=== PATIENT | female | born 1975 | race Caucasian/White ===

== ENCOUNTER → 2019-07-05 13:22 | Outpatient (CLI) | payer OTHER, SELFPAY ==
--- NOTE | 2019-07-05 13:30 | RAD_ITS ---
STUDY: X-RAY - PELVIS AND LEFT HIP REASON FOR EXAM: Female, 43 years old. Chronic left hip pain. TECHNIQUE: 3 views of the pelvis and hip. COMPARISON: None. FINDINGS: There is a non-specific bowel gas pattern. There are multiple calcified phleboliths. Normal bilateral iliac wings, sacroiliac joints and visualized sacrum. Normal bilateral superior and inferior pubic rami. Normal pubic symphysis. Normal bilateral ischial tuberosities. Normal visualized femoral head. Normal acetabulum. Normal hip joint. Evidence of prior laminectomy in the lower lumbar spine. Disc space narrowing with spondylosis at the L4-L5 level. RAD/HIP, UNI W/ Pelvis 2-3 Views IMPRESSION: No acute abnormality is seen. Electronically Signed: Dimitri Rick, at 13:50 EDT , Service support ,
== END ==
PROVIDERS: Family Provider Family Medicine; PCP Family Medicine; Referring Provider Family Medicine; Visit Provider Family Medicine
DX: M25.552 Pain in left hip (principal)
CPT/HCPCS: 73502

== ENCOUNTER → 2019-07-15 14:28 | Outpatient (CLI) | payer OTHER, SELFPAY ==
[2019-07-15 14:31] LABS: Red Blood Cells-Urine 0 SEEN /hpf (0-5)
[2019-07-15 14:44] LABS: Color, Urine Yellow (Yellow); Glucose, Dipstick Normal (Normal); Ketone-Dipstick 5 mg/dl (Negative); Leukocyte Esterase-Dipstick 25 /ul (Negative); Nitrite-Dipstick Negative (Negative); Occult Blood-Urine Negative /ul (Negative); Protein-Dipstick 15 mg/dl (Negative); Urine Bilirubin Dipstick Negative (Negative); Urine Clarity Sl. Cloudy (Clear); Urine Urobilinogen Normal (Normal)
[2019-07-15 14:52] LABS: Bacteria 2+ /hpf (None Seen); Mucous, Urine 1+ /hpf (<or=2+); Squamous Epithelial Cells - UA 0-5 SEEN /hpf (5-10); White Blood Cells 0-5 SEEN /hpf (0-5); Yeast-Urine RARE /hpf (None Seen)
== END ==
PROVIDERS: Family Provider Family Medicine; PCP Family Medicine; Referring Provider Physician Assistant; Visit Provider Physician Assistant
DX: R30.0 Dysuria (principal)
CPT/HCPCS: 81001; 87077; 87086; 87088

== ENCOUNTER 2019-08-03 08:07 | Day surgery (SDC) | payer OTHER, SELFPAY ==
--- NOTE | 2019-07-16 05:18 | HP_ITS ---
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 Is patient in pain?: No Allergies Iodinated Contrast Media Allergy (Mild, Verified 07/16/19 14:30) Unknown lidocaine Allergy (Mild, Verified 07/16/19 14:30) HIVES Medications bupropion HCl SR 100 mg tablet,12 hr sustained-release 100 mg PO DAILY 11/30/18 [History Confirmed 07/16/19] fluconazole 200 mg tablet 200 mg PO DAILY #2 tab 11/30/18 [Rx Confirmed 07/16/19] loratadine 10 mg tablet 10 mg PO DAILY 11/30/18 [History Confirmed 07/16/19] norethindrone (contraceptive) 0.35 mg tablet 0.35 mg PO DAILY 11/30/18 [History Confirmed 07/16/19] nitrofurantoin monohydrate/macrocrystals 100 mg capsule 1 cap PO Q12H 7 Days #14 cap 07/15/19 [Rx Confirmed 07/16/19] cyclobenzaprine 10 mg tablet 10 mg PO HS 07/16/19 [History Confirmed 07/16/19] pantoprazole 40 mg tablet,delayed release 40 mg PO DAILY 07/16/19 [History Confirmed 07/16/19] valacyclovir 500 mg tablet 500 mg PO DAILY 07/16/19 [History Confirmed 07/16/19] PFSH Medical History HISTORY OF CARPAL TUNNEL (Acute) NECK/BACK PAIN (Acute) Severe headache (Acute) Surgical History History of (Acute) History of lumbar surgery (Acute) Social History (Updated 07/16/19 @ 17:18 by Aditya Garcia MD) Smoking Status: Never smoker alcohol intake: current alcohol intake frequency: a few times a month HPI HPI HPI: DEBBIE MALHOTRA, is a 43 F who presents to the office today for HPI HPI Surgical H&P: Yes HPI: DEBBIE MALHOTRA, is a 43 F who presents to the office today for surgical consultation regarding intractable gastroesophageal reflux disease. When she lies down at night she feels that she has heartburn and a very bad taste in her mouth. She has for years taking wzbr-uec-kqjfzmo omeprazole as needed. Recently she has been prescribed 40 mg daily of pantoprazole. It is of note that her maternal aunt and uncle had esophageal cancer and stomach cancer respectively. Her mother has been diagnosed with Doty's. Her brother has had a stomach ulcer. The patient is employed at the [employer] department of [email or web address]. ROS General General: Yes fatigue; no weight change, appetite, colon cancer, breast cancer or weakness HEENT HEENT: Yes eye injury and eye surgery; no difficulty swallowing, swollen glands or hoarseness Endo Endocrine: No thyroid disease, diabetes mellitus, thyroid cancer, Hair loss, heat intolerance or cold intolerance Skin Skin: No rash or changing moles Breast Breast: No left breast lump, right breast lump, nipple discharge, breast pain, abnormal mammogram, abnormal US or breast enlargement Musc Musculoskeletal: Yes back problems and arthritis; no rheumatoid arthritis, gout or joint pain Cardio Cardiovascular: No murmur, pacemaker, heart disease, atrial fibrillation, high blood pressure, heart attack, heart stent, palpitations, shortness of breat with exertion or chest pain Psych Psychiatric: Yes depression and anxiety; no hearing voices Resp Respiratory: No shortness of breath, No sleep apnea, No cough, No COPD, No asthma, No emphysema, No wheezing Gastro Gastrointestinal: No abdominal pain, No nausea or vomiting, No diarrhea, No constipation, No blood in stool, Yes acid reflux, Yes hemorrhoids, No ulcers, No gallbladder problem, No black,tarry stools Benjamin Hematologic: No blood thinners, No blood disorders, No bleeding, No anemia, No blood clots Neuro Neurologic: No system reviewed and no additional complaints, except as docu, No as per HPI, No abnormal walking, No abnormal hearing, No abnormal movements, No abnormal speech, No behavioral changes, No burning sensations, No confusion, No seizure-like activity, No unsteadiness, No dizziness, No localized weakness, No frequent falls, No headache(s), No lack of coordination, No loss of vision, No memory loss, Yes numbness, No other visual disturbances, No radiating pain, No restless legs, No sensory deficit, No fainting, Yes tingling, No tremor(s), No weakness, No other Exam Const General: cooperative, healthy appearing, comfortable, no acute distress Nutritional Appearance: obese Orientation: alert, awake, oriented x3 HENMT Head: normal to inspection Chest Breast Palpation: No nipple discharge Resp Effort & Inspection: normal respiratory effort Auscultation: clear to auscultation bilaterally Cardio Rate: regular rate Rhythm: regular rhythm Heart Sounds: no murmurs GI Palpation: soft, no hepatosplenomegaly Auscultation: normal bowel sounds Neuro Cognition: normal cognition Extrem General: no clubbing Psych Affect: normal affect Assessment & Plan Problems 1. Gastroesophageal reflux disease, esophagitis presence not specified K21.9 Plan Very pleasant 43-year-old female was had intractable gastroesophageal reflux disease for multiple years being treated with as needed exoq-ykj-shpcuek omeprazole. Recently her symptoms has escalated. She has never had an upper endoscopy for evaluation. I recommend a esophagogastroduodenoscopy with very careful inspection for antrum possible H. pylori possible evidence of a hiatal hernia or reflux or even eosinophilic esophagitis. She is aware of the technique, benefits, risks, alternatives. She is aware the potential need to pursue biopsy or polypectomy. She has had an opportunity to ask and have questions answered. We will schedule and proceed at her discretion. I very much appreciate the kind opportunity of assisting with her surgical care. Aditya Garcia M.D., F.A.C.S. Orders Orders: EGD Today K21.9 Coding Level of Care Code Off vis,new,level 3 Diagnoses Gastroesophageal reflux disease, esophagitis presence not specified K21.9 ??Esophagitis presence: esophagitis presence not specified 07/16/19 1718 <Electronically signed by Aditya palomino MD> Date _ Aditya Garcia MD I have re-examined the patient. There are no clinical changes since date of exam.
[2019-07-16 14:29] VITALS: BMI 33.7
[2019-07-23 12:57] VITALS: BMI 33.7
[2019-08-03] VITALS (11 sets, daily range): BP systolic 85–116; BP diastolic 51–85; PULSE 83–91; RESP 16–18; TEMP 36.4–36.9; O2SAT 92–100; BMI 33.7
[2019-08-03] MEDS: Lactated Ringers 1,000 ML 100 ML IV (08:47)
--- NOTE | 2019-08-03 09:00 | EGD_PTH ---
PATIENT: DEBBIE MALHOTRA LOC: EN U#:[id number] AGE/SX: 43/F ROOM: RE08/03/[address]: Dr. Aditya Garcia MD : 1975 BED: DIS: 08/03/2019 SPEC #: [id number] RECD: 08/03/19 10:44 STATUS: HUMBERTO CHRISTIANO #: [id number] FRANCK: 08/03/19 09:[address]: Aditya Garcia DEPT: SURGICAL PATHOLOGY RECD BY: Byron Villarreal ENTERED: 08/03/19 11:08 SP TYPE: EGD BIOPSY OTHR DR: Dr. Jatin Bradford MD Tissues: A - Duodenum, NOS B - Gastric mucous membrane C - Esophageal mucous membrane Procedures: Special Stain Group II Surgery Specimen Level IV Alcian Blue/PAS (control) HEADER OPERATION: EGD (MOD) PRE-OP DIAGNOSIS: GERD TISSUE SUBMITTED: A - Duodenum biopsy, B - Antrum biopsy for H. pylori and histo, C - Distal esophagus biopsy MICROSCOPIC DIAGNOSIS A. Duodenum, biopsy: No pathologic change. B. Gastric antrum, biopsy: Minimal chronic inflammation. See comment. C. Distal esophagus, biopsy: Gastroesophageal junctional mucosa with mild chronic inflammation. No evidence of intestinal metaplasia. See comment. AM:yesenia 08/06/19 COMMENT B. The results of immunohistochemistry for Helicobacter pylori will be reported separately ([id number]). C. Alcian blue/PAS stain with matched control supports the above diagnosis. MICROSCOPIC DESCRIPTION Slides are reviewed. GROSS DESCRIPTION A - Received in fixative is one container labeled with the patient's name and designated duodenum biopsy. The specimen consists of one irregular fragment of light dunlap soft tissue that measures 0.3 x 0.3 x 0.1 cm. The specimen is totally submitted in one cassette. B - Received in fixative is one container labeled with the patient's name and designated antrum biopsy. The specimen consists of one irregular fragment of light dunlap soft tissue that measures 0.5 x 0.3 x 0.1 cm. The specimen is totally submitted in one cassette. C - Received in fixative is one container labeled with the patient's name and designated distal esophagus biopsy. The specimen consists of multiple irregular fragments of light dunlap soft tissue that in aggregate measure 1 x 0.5 x 0.1 cm. The specimen is totally submitted in one cassette. / SJ:rg 08/03/19 TC:5 CPT: 48754 x3, 58553
--- NOTE | 2019-08-03 09:00 | IMM_PTH ---
PATIENT: DEBBIE MALHOTRA LOC: EN U#:[id number] AGE/SX: 43/F ROOM: RE08/03/[address]: Dr. Aditya Garcia MD : 1975 BED: DIS: 08/03/2019 SPEC #: [id number] RECD: 08/03/19 11:34 STATUS: HUMBERTO CHRISTIANO #: [id number] FRANCK: 08/03/19 09:[address]: Aditya Garcia DEPT: IMMUNOHISTOCHEMISTRY RECD BY: Jaycee Walker ENTERED: 08/03/19 11:35 SP TYPE: IMMUNO OTHR DR: Dr. Jatin Bradford MD Tissues: A - Stomach, NOS Procedures: H Pylori (initial) PHYSICIAN & INSTITUTION [place] [id number] SPECIMEN INFORMATION: Tissue Source: B - Antrum biopsy Clinical Info: GERD Specimen Number: [id number] CPT code: 01355 METHODOLOGY: Deparaffinized sections of prefer/formalin-fixed tissue or PAP/DQ stained slides are incubated with monoclonal/polyclonal antibodies/oligonucleotide probes. Localization is made via biotin free immunoperoxidase method. Appropriate controls are performed and reacted as expected. Results on target cell population are indicated in the following table: RESULTS: ANTIBODY / CLONE RESULT Block B H Pylori (polyclonal) negative These tests were developed and their performance characteristics determined by [facility]. They may not have been cleared or approved by the U.S. Food and Drug Administration. The FDA has determined that such clearance or approval is not necessary. INTERPRETATION: B. Antrum biopsy: Negative for Helicobacter pylori organisms. AM:yesenia 08/06/19
--- NOTE | 2019-08-03 09:48 | OP.ENDO_ITS ---
08/03/2019 Jatin Bradford Md Re : Upper GI endoscopy procedure for Ketty Lin Dear Sanchez This procedure was performed on Saturday, August 03, 2019. My impressions and recommendations are as follows: Impressions : - LA Grade A chronic esophagitis. Rule out Doty's esophagus. Biopsied. - Small hiatal hernia. - Chronic gastritis. Biopsied. - Normal examined duodenum. Biopsied. Recommendations : - Discharge patient to home. - Resume previous diet. - Continue present medications. 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 My findings are described in the full procedure note, which is enclosed. If I can be of further assistance, please feel free to contact me at Doctor phone number(s): Work: . Sincerely, Aditya Garcia MD 08/03/2019 9:47:56 AM This report has been signed electronically.
== END 2019-08-03 11:13 | disposition home or self-care (01) ==
LOC: EN 08:07 → AC 08:08
PROVIDERS: Family Provider Family Medicine; PCP Family Medicine; Referring Provider Family Medicine; Visit Provider Surgery
PROC: (CPT 43239; principal; 2019-08-03 08:55)
DX: K21.0 Gastro-esophageal reflux disease with esophagitis (principal); K29.50 Unspecified chronic gastritis without bleeding; K44.9 Diaphragmatic hernia without obstruction or gangrene; E66.9 Obesity, unspecified; F32.9 Major depressive disorder, single episode, unspecified; F41.9 Anxiety disorder, unspecified; Z79.899 Other long term (current) drug therapy; Z80.0 Family history of malignant neoplasm of digestive organs
CPT/HCPCS: 43239; 88305; 88313; 88342; 99152; 99153; J7120

== ENCOUNTER → 2019-08-08 10:25 | Outpatient (CLI) | payer OTHER, SELFPAY ==
[2019-07-23 12:57] VITALS: BMI 33.7
[2019-08-03 08:32] VITALS: BMI 33.7
--- NOTE | 2019-08-08 10:31 | MRI_ITS ---
STUDY: MRI BRAIN WITHOUT CONTRAST REASON FOR EXAM: Female, 43 years old. Headache, neck stiffness TECHNIQUE: Standardized multiplanar fat and water weighted pulse sequences were obtained. COMPARISON: None. FINDINGS: Normal size of the ventricles and extra-axial spaces for the patient's age. Normal white matter tracts of the supratentorial brain. There is no evidence for recent intracranial ischemia or other cause of cytotoxic edema on diffusion weighted imaging (DWI). Normal T2* images of the brain without demonstrated susceptibility artifact. There is no demonstrated hemosiderin stain. Normal bilateral basal ganglia. Normal thalami. There is no extra-axial fluid accumulation. Normal flow voids within the major intracranial circulation suggesting patency by spin echo criteria. Normal sella turcica, pituitary gland, infundibular stalk, optic chiasm and hypothalamus. Normal tectal plate and pineal gland. Normal midbrain, carole and medulla. Normal cerebellum. Normal basal cisterns. Normal bilateral temporal bones. Normal bilateral internal auditory canals. No demonstrated orbital abnormality, within the constraints of a routine brain study. Normal visualized paranasal sinuses. Normal calvarium and skull base. Normal visualized soft tissue structures. Normal visualized upper cervical spine. MRI/Brain without Contrast IMPRESSION: Normal unenhanced MRI of the brain. Electronically Signed: Yusuf Aden MD at 14:25 EDT Tel , Service support ,
== END ==
PROVIDERS: Family Provider Family Medicine; PCP Family Medicine; Referring Provider Family Medicine; Visit Provider Family Medicine
DX: M43.6 Torticollis (principal)
CPT/HCPCS: 70551

== ENCOUNTER 2019-11-28 10:00 | Outpatient (RCR) | payer OTHER, SELFPAY ==
[2019-08-03 08:32] VITALS: BMI 33.7
[2019-08-17 06:10] VITALS: BMI 33.7
--- NOTE | 2019-08-29 10:26 | HP.PTEVAL ---
Patient's Visit Information DEBBIE MALHOTRA is a 43 year old F referred to Physical Therapy by Jatin Bradford MD with a diagnosis of CHRONIC RECURRANCE MIGRAINES. Date of Evaluation: 08/29/19 Physical Therapist: Laron Thomas PT, Cert MDT, OCS - Visit Plan Frequency: 2x /Week Duration: 4 Weeks Plan: PT INTERVENTIONS MANUAL THERPY MOBILIZATION OA/AA,TRACTION/STM ,MODALTIES,SCOTT EX'S,POSTURAL EX'S - Subjective Findings: This 43 y/o female presents to physical therapy with recurrent migraines. Patient has had migraines 3 months ago. Symptoms located occipital . 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 No Lloyd. Alleviating ibuprofrin. Patient has had h/o right shoulder pain 2 years associated neck per patient. Dneis parathesai/tingling. Dizziness /nausea/tiinutus. Patient sleeping okay at night. Patient migraines affects job demnads ,ADL'S and housework tasks. Patient symptoms affect QOL and function. Patient had MRI brain -.PMH: lumbar disectomy/laminectomy x3. SOCAIL: single. VOCATION: [employer] at [employer] - Objective POSTURE: rounded shoulder head foward. PALAPTION: tender occiput. NEURO: intact ,denies parathesia/tinling. AROM: BUE WFL. MMT: grossly 4/5. 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: dynamotor 75# - Special Tests C/S Radiculapathy - Left Upper limb tension test: Negative C/S Radiculapathy - Right Upper limb tension test: Negative C/S Radiculapathy - Left Spurlings: Negative C/S Radiculapathy - Right Spurlings: Negative C/S Radiculapathy - Left Cervical distraction: Negative C/S Radiculapathy - Right Cervical distraction: Negative Sharp Anastacio: Negative Vertebral Artery Test: Negative Alar Ligament Test: Negative Cervical Sitting: Protrusion - Mechanical Response: No effect Cervical Sitting: Protrusion - Symptoms During Testing: No effect Cervical Sitting: Protrusion - Symptoms After Testing: No effect Cervical Sitting: Retraction - Mechanical Response: No effect Cervical Sitting: Retraction - Symptoms During Testing: Increases Cervical Sitting: Retraction - Symptoms After Testing: No worse - Goals Goal 1:: Independant with HEP Goal Time Frame: 4-6 Weeks Goal 2:: Independant with posture for job demands . Goal Time Frame: 4-6 Weeks Goal 3:: Patient to decrease LLOYD by 60% or> to improve job demands . Goal Time Frame: 4-6 Weeks Goal 4:: Patient to increase cervical ROM WNL for function of recovery Goal Time Frame: 4-6 Weeks Goal 5:: Patient to improve neck owestry score by 5 point or > to improve QOL. Goal Time Frame: 4-6 Weeks - Rehabilitation Potential Physical Therapy Diagnosis: This patient has chronic migraines appears to be cervicalogenic with pain with cervical ROM, tenderness and postioning posture affecting job demands and ADL'S thus benifit from skilled PT Rehabilitation Potential: Good - Anticipated Interventions Patient/Client Instruction: Educate patient on: Condition, Plan of Care For the Purpose of:: To decrease pain, To improve nutrient delivery to tissue, To improve muscle performance and motor function, To improve ability to perform ADL's, To increase tolerance to activity/condition/position, To improve ability of physical actions for home/community/work/leisure, To improve health of tissue, To decrease soft tissue restriction, To increase flexibility/ROM, To improve ability to perform tasks related to life management Therapeutic Exercise to Include: Strength training, Postural training, Flexibilty training, Active ROM For the Purpose of:: To decrease pain, To decrease swelling/inflammation, To increase ROM, To improve nutrient delivery to tissue, To increase oxygenation perfusion, To improve health of tissue, To decrease soft tissue restriction Manual Therapy Techniques to Include: Mobilization, Soft tissue mobilization Comment: OA/AA For the Purpose of:: To decrease pain, To increase ROM, To increase oxygenation perfusion, To improve ability to perform ADL's, To increase tolerance to activity/condition/position, To improve ability of physical actions for home/community/work/leisure, To improve health of tissue, To decrease soft tissue restriction, To increase flexibility/ROM TENS: Yes IF ES: Yes Cryotherapy (ice pack, ice massage): Yes Thermo therapy (hot pack): Yes Ultrasound (thermal/non thermal): Yes For the Purpose of:: To decrease pain, To increase ROM, To improve nutrient delivery to tissue, To increase oxygenation perfusion, To improve health of tissue, To decrease soft tissue restriction Thank you for the opportunity to evaluate your patient. For Medicare and Medicare HMO plans, please review the plan of care and approve it. It will need to be FAXED BACK to us at [phone] for Medicare purposes. For Medicare only, by signing this I certify the plan of care. Please let me know if there are questions or concerns regarding this plan of care. Physician Signature: Date:
--- NOTE | 2020-01-23 15:17 | HP.PT.NRP ---
DEBBIE MALHOTRA was seen in my office for initial evaluation on 08/29/19. The following Plan of Care was established for this patient: Initial Frequency: 2x /Week Initial Duration: 4 Weeks Patient/Client Instruction: Educate patient on: Condition, Plan of Care For the Purpose of:: To decrease pain, To improve nutrient delivery to tissue, To improve muscle performance and motor function, To improve ability to perform ADL's, To increase tolerance to activity/condition/position, To improve ability of physical actions for home/community/work/leisure, To improve health of tissue, To decrease soft tissue restriction, To increase flexibility/ROM, To improve ability to perform tasks related to life management Therapeutic Exercise to Include: Strength training, Postural training, Flexibilty training, Active ROM For the Purpose of:: To decrease pain, To decrease swelling/inflammation, To increase ROM, To improve nutrient delivery to tissue, To increase oxygenation perfusion, To improve health of tissue, To decrease soft tissue restriction Manual Therapy Techniques to Include: Mobilization, Soft tissue mobilization Comment: OA/AA For the Purpose of:: To decrease pain, To increase ROM, To increase oxygenation perfusion, To improve ability to perform ADL's, To increase tolerance to activity/condition/position, To improve ability of physical actions for home/community/work/leisure, To improve health of tissue, To decrease soft tissue restriction, To increase flexibility/ROM TENS: Yes IF ES: Yes Cryotherapy (ice pack, ice massage): Yes Thermo therapy (hot pack): Yes Ultrasound (thermal/non thermal): Yes For the Purpose of:: To decrease pain, To increase ROM, To improve nutrient delivery to tissue, To increase oxygenation perfusion, To improve health of tissue, To decrease soft tissue restriction This patient was last seen in our office 07/28/19. Pertinent comments regarding their Physical therapy will appear below: Patient seen for migraines utilizing manual techniques and modalties.Patient responded well with PT interventions. At this point I will be discontinuing this patient from physical therapy. I would be happy to see this patient again in the future if found appropriate by the physician. Thank you! Laron Thomas, PT, Cert MDT, OCS
== END 2019-11-28 19:00 | disposition home or self-care (01) ==
LOC: PT 10:00
PROVIDERS: Family Provider Family Medicine; PCP Family Medicine; Referring Provider Family Medicine; Visit Provider Family Medicine
DX: R51 Headache (principal)
CPT/HCPCS: 97035; 97140; 97161

== ENCOUNTER 2019-12-19 10:45 | Outpatient (RCR) | payer OTHER, SELFPAY ==
[2019-08-03 08:32] VITALS: BMI 33.7
[2019-08-17 06:10] VITALS: BMI 33.7
--- NOTE | 2019-10-24 07:12 | MASS.EVAL ---
Massage Therapy Evaluation: Initial Evaluation Date: 10/17/2019 /Age: 1210/09/1975, 44 Diagnosis: Neck Pain Goals: frequency and intensity of headaches Decrease neck pain Resume yoga Plan: To be seen one time per month or PRN for a total of 10 treatments.
--- NOTE | 2020-09-29 12:05 | DS.PCM_ITS ---
Massage Therapy Discharge Summary: Initial Evaluation Date: 10/17/2019 Diagnosis: Neck Pain No. of Visits: 20 Date of last visit: 12/19/2019 This patient is being discharged from our care at the [facility]. Thank you, Perlita Hodge LMT
== END 2019-12-19 19:00 | disposition home or self-care (01) ==
LOC: MASS 10:45
PROVIDERS: Family Provider Family Medicine; PCP Family Medicine; Referring Provider Family Medicine; Visit Provider Family Medicine
DX: M54.2 Cervicalgia (principal); G89.29 Other chronic pain
CPT/HCPCS: 97124

== ENCOUNTER → 2020-05-28 07:51 | Outpatient (CLI) | payer OTHER, SELFPAY ==
[2019-08-17 06:10] VITALS: BMI 33.7
== END ==
PROVIDERS: PCP Family Medicine
DX: Z68.34 Body mass index [BMI] 34.0-34.9, adult (principal)

== ENCOUNTER → 2020-10-22 13:44 | Outpatient (CLI) | payer OTHER, SELFPAY ==
[2019-08-17 06:10] VITALS: BMI 33.7
--- NOTE | 2020-10-22 13:47 | BI_ITS ---
MAMMOGRAPHY - BILATERAL SCREENING REASON FOR EXAM: Female, 45 years old. Routine annual screening examination. PERTINENT HISTORY: Grandmother with breast cancer. TECHNIQUE: Digital bilateral breast alex (3D mammographic acquisition) in the CC and MLO projections. 2-D mediolateral oblique (MLO) and craniocaudad (CC) views of both breasts were obtained. CAD: Full Field Digital Mammography with Computer Added Detection was performed. COMPARISON: None. Baseline examination. FINDINGS: Breast Composition: The breasts are heterogeneously dense, which may obscure small masses. There are no dominant masses or suspicious calcifications. Small benign-appearing bilateral axillary lymph nodes. No other significant abnormalities are identified. BI/SCRN MAMM (CAD)W/ALEX BILAT IMPRESSION: Negative screening mammogram. Yearly followup mammogram recommended. (A) ASSESSMENT CATEGORY: BIRADS Category 2: Benign. A letter regarding these results will be sent to the patient by the facility within 30 days. Approximately 10% of breast cancers are not detected by mammography. A normal mammogram should not delay biopsy of a clinically suspicious abnormality. [id number] Electronically Signed: Dimitri Rick, at 15:06 EST , Service support ,
== END ==
PROVIDERS: PCP Family Medicine; Referring Provider Family Medicine; Visit Provider Family Medicine
DX: Z12.31 Encounter for screening mammogram for malignant neoplasm of breast (principal); Z80.3 Family history of malignant neoplasm of breast
CPT/HCPCS: 77063; 77067

== ENCOUNTER → 2021-01-20 13:10 | Outpatient (CLI) | payer OTHER, SELFPAY ==
[2019-08-17 06:10] VITALS: BMI 33.7
--- NOTE | 2021-01-20 13:14 | US_ITS ---
STUDY: ULTRASOUND OF THE FEMALE PELVIS - COMPLETE REASON FOR EXAM: Female, 45 years old. IRREGULAR MENSTRUAL CYCLE LMP: 01/13/2021 TECHNIQUE: Transabdominal and Transvaginal TECHNICAL QUALITY: Adequate. COMPARISON: None. FINDINGS: The uterus is anteverted and is in a midline position. The uterus measures 6.9 cm x 4 cm x 4.7 cm. There is a Nabothian cyst of the cervix. The endometrium measures 5.1 mm in thickness, and is hyperechoic. There is no demonstrated endometrial mass. There is a 2.2 cm x 2.3 cm x 1.6 cm fibroid in the anterior aspect of the uterus in the region of the fundus. I.U.D. - The patient does not have an I.U.D. The right ovary is visualized. The right ovary measures 3.4 cm x 2.5 cm x 1.2 cm. There is no right ovarian cyst or ovarian mass. There is no visualized right adnexal mass or complex lesion. There is normal arterial and normal venous vascularity. The left ovary is visualized. The left ovary measures 3.1 cm x 1.8 cm x 1.2 cm. There is no left ovarian cyst or ovarian mass. There is no visualized left adnexal mass or complex lesion. There is normal arterial and normal venous vascularity. There is no fluid in the cul-de-sac. US/Transvaginal Non- IMPRESSION: Heterogeneous appearance of the uterus with a 2.2 cm x 2.3 cm x 1.6 cm fundal fibroid. Electronically Signed: Dimitri Rick MD at 14:12 EDT , Service support ,
== END ==
PROVIDERS: PCP Family Medicine
DX: N92.6 Irregular menstruation, unspecified (principal); D25.9 Leiomyoma of uterus, unspecified
CPT/HCPCS: 76830

== ENCOUNTER 2022-01-14 14:10 | Outpatient (CLI) | payer OTHER, SELFPAY ==
--- NOTE | 2022-01-14 14:15 | RAD_ITS ---
STUDY: X-RAY - RIGHT SHOULDER REASON FOR EXAM: Female, 46 years old. R shoulder pain TECHNIQUE: 4 view(s) of the shoulder. COMPARISON: None. FINDINGS: Normal glenohumeral articulation. Normal acromioclavicular joint. Normal acromion. Normal humeral head and visualized proximal humerus. The soft tissue structures are unremarkable. Normal visualized pulmonary apex. RAD/Shoulder min 2 Views IMPRESSION: Normal x-ray examination of the shoulder. Electronically Signed: Dimitri Rick MD at 9:06 EDT ,
== END 2022-01-14 23:59 | disposition home or self-care (01) ==
LOC: RAD 14:12
PROVIDERS: PCP Nurse Practitioner; Referring Provider Nurse Practitioner; Visit Provider Nurse Practitioner
DX: M77.8 Other enthesopathies, not elsewhere classified (principal); M25.511 Pain in right shoulder
CPT/HCPCS: 73030

== ENCOUNTER → 2022-01-28 | Outpatient (CLI) | payer OTHER, SELFPAY ==
--- NOTE | 2022-01-28 10:14 | MRI_ITS ---
STUDY: MRI RIGHT SHOULDER REASON FOR EXAM: Right shoulder pain for one year, no specific injury. TECHNIQUE: Standardized fat and water weighted pulse sequences were obtained in all 3 orthogonal planes. COMPARISON: Radiographs 01/14/2022. FINDINGS: There is supraspinatus/infraspinatus tendinosis (T2 coronal images 8-13) without discrete tendon tear. Normal subscapularis tendon. Normal teres minor tendon. Normal supraspinatus muscle. Normal infraspinatus muscle. Normal subscapularis muscle. Normal teres minor muscle. Normal glenohumeral articulation. There is mild cystic change of the greater tuberosity. Normal biceps labral complex. There is tendinosis of the intracapsular long biceps tendon (T2 sagittal images 13, 14). Normal labrum. Normal capsulo- ligamentous complex. Normal acromioclavicular articulation. There is a Type II morphology (curved), with a neutral orientation. There is subacromial-subdeltoid bursal fluid. Normal visualized coracohumeral and coracoacromial ligaments. Normal deltoid muscle. Normal trapezius muscle. MRI/Upper Ext Joint Only(Routine) IMPRESSION: Supraspinatus/infraspinatus tendinosis without demonstrated rotator cuff tear. Tendinosis of the long biceps tendon. Subacromial-subdeltoid bursitis. Electronically Signed: Rikki Nath MD at 11:28 EDT ,
== END | disposition home or self-care (01) ==
PROVIDERS: PCP Nurse Practitioner; Referring Provider Physician Assistant; Visit Provider Physician Assistant
DX: M75.41 Impingement syndrome of right shoulder (principal); M25.511 Pain in right shoulder
CPT/HCPCS: 73221

== ENCOUNTER → 2022-03-16 | Outpatient (CLI) | payer OTHER, SELFPAY ==
--- NOTE | 2022-03-16 15:25 | RAD_ITS ---
STUDY: X-RAY - RIGHT HUMERUS REASON FOR EXAM: Female, 46 years old. Pain. TECHNIQUE: 2 view(s) of the humerus. COMPARISON: None. FINDINGS: Normal visualized humerus. There is no demonstrated fracture or osseous destructive process. There is no demonstrated soft tissue abnormality. RAD/Humerus min 2 Views IMPRESSION: Normal x-ray examination of the humerus. Electronically Signed: Jeet Carver MD at 9:52 EDT ,
== END | disposition home or self-care (01) ==
LOC: RAD 15:21
PROVIDERS: PCP Nurse Practitioner; Referring Provider Orthopaedic Surgery; Visit Provider Orthopaedic Surgery
DX: M79.603 Pain in arm, unspecified (principal)
CPT/HCPCS: 73060

== ENCOUNTER → 2022-04-19 | Outpatient (CLI) | payer OTHER, SELFPAY ==
--- NOTE | 2022-04-19 16:20 | MRI_ITS ---
STUDY: MRI UPPER EXTREMITY RIGHT HUMERUS WITHOUT CONTRAST REASON FOR EXAM: Female, 46 years old. pain, right mid humerus pain extending to elbow TECHNIQUE: Standardized fat and water weighted pulse sequences were obtained in all 3 orthogonal planes through the right humerus COMPARISON: Humerus radiograph March 16, 2022. FINDINGS: Diffuse subacromial subdeltoid bursal fluid at the superior study margin. Normal glenohumeral alignment without effusion. Lack of tendon signal in the expected location of distal supraspinatus tendon. Biceps tendon is located within the bicipital groove with normal internal signal and trace peritendinous fluid. Normal subcutis soft tissue appearance. There is no demonstrated solid, cystic, or lipomatous mass within the subcutaneous adipose space. Normal visualized muscles and fascia. Normal bone marrow signal. No intraosseous mass or periostitis. MRI/Upper Ext/No Jt/ wo IMPRESSION: Subacromial subdeltoid bursitis. Possible supraspinatus tendon rotator cuff tear at the superior margin of the study, better assessed by shoulder MRI. If there is new weakness or other interval change from January 28, 2021 shoulder MRI consider repeat shoulder MRI. No acute humeral finding. Electronically Signed: Bimal Trinidad MD at 6:40 EDT ,
== END | disposition home or self-care (01) ==
LOC: MRI 16:20
PROVIDERS: PCP Nurse Practitioner; Visit Provider Orthopaedic Surgery
DX: M79.621 Pain in right upper arm (principal); G89.29 Other chronic pain
CPT/HCPCS: 73218

== ENCOUNTER 2022-06-10 16:00 | Outpatient (RCR) | payer OTHER, SELFPAY ==
--- NOTE | 2022-02-10 10:26 | HP.PTEVAL_ITS ---
Patient's Visit Information DEBBIE MALHOTRA is a 46 year old F referred to Physical Therapy by MELYSSA Romo with a diagnosis of R SHLD IMPINGEMENT AND MINOR BICEPS TENDINOPATHY. Date of Evaluation: 02/10/22 Physical Therapist: Sharon Dominguez, PT, Cert MDT - Visit Plan Frequency: 2-3x /Week Duration: 4-6 Weeks Plan: DRY NEEDLING CONSULT. US. E-STIM WITH CP OR MH INDICATED. POSTURE CORRECTION/STRENGTHENING, INSTRUCTION IN APPROPRIATE BODY MECHANICS AND ACTIVITY MODIFICATIONS. R UE ROM, STRETCHING AND STRENGTHENING. HEP INSTRUCTION. - Subjective Diagnosis: R SHLD IMPINGEMENT AND MINOR BICEPS TENDINOPATHY. Work/Leisure: P [employer] TIME, 4 DAYS A WEEK, WORKING IN [place] AT [employer]. 32 HOURS A WEEK. Disability: NO. Present symptoms: ANTERIOR R SHLD PAIN AND BICEPS PAIN. RIGHT ELBOW PAIN. R WRIST PAIN. NO NUMBNESS OR TINGLING. RIGHT NECK PAIN. Present since: COUPLE YEARS. Pain Scale: Worst - 8/10 Least - 1/10. Currently: 12/17. Commenced as a result of: NO APPARENT REASON. BUT THERE WAS A POP 20 YEARS WHILE DOING [employer] BUT REALLY JUST CAME ON GRADUALLY AND IS GETTING WORSE. Symptoms at onset: RIGHT SHLD PAIN. Worse: MY JOB, EVERYDAY ACTIVITIES LIKE CLEANING, HOUSE HOLD DUTIES, EXERCISING. Better: NO USING IT, ICE. Disturbed sleep: YES. Previous history/Previous treatment: ABOUT 5 YEARS AGO DID PHYSICAL THERAPY AND PROGRESSED TO TREATMENT TO NECK. PT INCLUDED DRY NEEDLING - HELPED. NO SHLD SURGERY. DID HAVE INJECTIONS APPROX 2009 WITH BENEFIT. This episode: CORTISONE SHOT BY JOSE CARLOS RODRÍGUEZ 01/21/22 WITH BENEFIT BUT THEN SHE PULLED THE STRING ON HER MOWER AND SHE IS ALMOST BACK TO SQUARE ONE. Dizziness: NO. Tinnitis: NO. Nausea: NO. Shortness of Breath: NO. Difficulty Swollowing: NO. Gait: NORMAL. Accidents: NO. Unexplained weight loss: NO. Imagin01/28/22 R SHLD MRI: STUDY: MRI RIGHT SHOULDER. REASON FOR EXAM: Right shoulder pain for one year, no specific injury. TECHNIQUE: Standardized fat and water weighted pulse sequences were. obtained in all 3 orthogonal planes. COMPARISON: Radiographs 01/14/2022. . FINDINGS: There is supraspinatus/infraspinatus tendinosis (T2 coronal images 8- 13). without discrete tendon tear. Normal subscapularis tendon. Normal teres minor tendon. Normal supraspinatus muscle. Normal infraspinatus muscle. Normal. subscapularis muscle. Normal teres minor muscle. Normal glenohumeral articulation. There is mild cystic change of the. greater tuberosity. Normal biceps labral complex. There is tendinosis of. the intracapsular long biceps tendon (T2 sagittal images 13, 14). Normal. labrum. Normal capsulo- ligamentous complex. Normal acromioclavicular articulation. There is a Type II morphology. (curved), with a neutral orientation. There is subacromial- subdeltoid. bursal fluid. Normal visualized coracohumeral and coracoacromial ligaments. Normal deltoid muscle. Normal trapezius muscle. . MRI/Upper Ext Joint Only(Routine). IMPRESSION: Supraspinatus/infraspinatus tendinosis without demonstrated rotator cuff. tear. . Tendinosis of the long biceps tendon. . Subacromial-subdeltoid bursitis. PMH/Recent major surgery: 3 LUMBAR SPINE SURGERIES. JOSE CTR'S. - Objective Sitting Posture/Standing Posture: POOR. FH. RS'S. Active Correction of posture: NE. Other Observations: INDEP GAIT AND TRANSFERS. Sensory deficit: JOSE UE LIGHT TOUCH SENSATION IS GROSSLY INTACT AND SYMMETRICAL. ROM deficit: RIGHT SHLD ACTIVE FLEXION TO 135 DEG IN SITTING AND ABD TO 155 DEG IN SITTING. ERP WITH TESTING. Motor deficit: PATIENT IS RIGHT HAND DOMINANT. 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 PEAK FORCE (LBS): SHLD FLEX: R 19.2. L 14. SHLD EXT: R 17.5. L 23.4. SHLD ABD: R 20.1. L 19.1. SHLD ER: R 13.6. L 16.5. SHLD IR: R 18.6. L 22.1. ELBOW FLEX: R 20.7. L 19.4. ELBOW EXT: R 18.9. L 19.6. Cervical Mvmt Loss: Flex: NIL. Pro: NIL. Ext: MIN. Ret: MOD. RSB: MOD. LSB: MIN. R Rot: MIN. L Rot: NIL. PATIENT REPORTED A LITTLE BIT OF NECK PAIN WITH JOSE SB TESTING BUT DENIED INCREASED SHLD PAIN WITH TESTING. Postural strength: POOR. Palpation: NO ACUTE NECK OR JOSE SHLD TENDERNESS TODAY INCLUDING R BICIPITAL GROOVE. TREATMENT: NEUROMUSCULAR REEDUCATION - INTRO TO RETRAINING OF MVMT FOR POSTURE IN SITTING AND WITH ADL'S. PATIENT COMMUNICATED/DEMONSTRATED A GOOD UNDERSTANDING OF ALL INSTRUCTIONS AFTER GIVEN. - Balance/Special Test Scores Quick DASH Score: 15.0000 - Goals Goal 1:: DECREASE C/O RIGHT SHLD PAIN Goal Time Frame: 4-6 Weeks Goal 2:: INCREASE PAINFREE RIGHT SHLD ROM TO EASE ADL'S Goal Time Frame: 4-6 Weeks Goal 3:: INCREASE RIGHT SHLD FUNCTIONAL STRENGTH TO EASE ADL'S. Goal Time Frame: 4-6 Weeks Goal 4:: PATIENT WILL BE INDEP WITH A HEP FOR CONTINUED IMRPOVEMENT ONCE FORMAL PHYSICAL THERAPY CONCLUDES. Goal Time Frame: 4-6 Weeks - Anticipated Interventions Patient/Client Instruction: Educate patient on: Condition, Plan of Care, Risk Factors For the Purpose of:: To improve self management Therapeutic Exercise to Include: Strength training, Body mechanics, Postural training, Flexibilty training, Neuromotor development, Scapular Strength/Stabilization For the Purpose of:: To decrease pain, To improve muscle performance and motor function, To increase tolerance to activity/condition/position, To improve ability of physical actions for home/community/work/leisure Manual Therapy Techniques to Include: Other Comment: DRY NEEDLING CONSULT For the Purpose of:: To increase ROM, To improve nutrient delivery to tissue TENS: Yes IF ES: Yes Cryotherapy (ice pack, ice massage): Yes Thermo therapy (hot pack): Yes Ultrasound (thermal/non thermal): Yes For the Purpose of:: To decrease pain, To improve nutrient delivery to tissue Thank you for the opportunity to evaluate your patient. For Medicare and Medicare HMO plans, please review the plan of care and approve it. It will need to be FAXED BACK to us at [phone] for Medicare purposes. For Medicare only, by signing this I certify the plan of care. Please let me know if there are questions or concerns regarding this plan of care. Physician Signature: Date:
== END 2022-06-10 19:00 | disposition home or self-care (01) ==
LOC: PT 16:00
PROVIDERS: PCP Nurse Practitioner; Referring Provider Physician Assistant; Visit Provider Physician Assistant
DX: M25.811 Other specified joint disorders, right shoulder (principal); M75.21 Bicipital tendinitis, right shoulder
CPT/HCPCS: 97035; 97110; 97112; 97161; 97164

== ENCOUNTER 2022-08-06 13:46 | Outpatient (CLI) | payer OTHER, SELFPAY ==
[2022-08-06 16:26] LABS: T4 Free Direct 0.85 ng/dL (0.76-1.46); Thyroid Stim Hormone (TSH) 0.39 uIU/mL (0.358-3.74)
[2022-08-06 16:31] LABS: Vitamin B12 613 pg/mL (211-911)
[2022-08-10 18:20] LABS: Vitamin D 1,25-Dihydroxy 22.9 pg/mL (24.8-81.5)
== END 2022-08-06 23:59 | disposition home or self-care (01) ==
LOC: LAB 13:48
PROVIDERS: PCP Nurse Practitioner; Visit Provider Nurse Practitioner
DX: L65.9 Nonscarring hair loss, unspecified (principal); E53.9 Vitamin B deficiency, unspecified; R53.83 Other fatigue
CPT/HCPCS: 36415; 82607; 82652; 84439; 84443

== ENCOUNTER → 2022-12-23 | Outpatient (CLI) | payer OTHER, SELFPAY ==
--- NOTE | 2022-12-23 15:30 | US_ITS ---
STUDY: ULTRASOUND OF THE FEMALE PELVIS - COMPLETE REASON FOR EXAM: Female, 47 years old. CYST-LTO TECHNIQUE: Endovaginal. Transvaginal US was obtained to better visualized the ovaries. COMPARISON: 01.20.21. FINDINGS: The uterus is anteverted and is tilted to the left side of the pelvis. The uterus measures 11.2x5.2 cm. There is a Nabothian cyst of the cervix. The endometrium measures 5 mm in thickness, and is hyperechoic. There is no demonstrated endometrial mass. There is fibroid measuring 12 x 13mm. I.U.D. - The patient does not have an I.U.D. Internal echoes in the cervix measuring up to 11mm. The right ovary is visualized. The right ovary measures 2.5x1.9 cm. There is no right ovarian cyst or ovarian mass. There is no visualized right adnexal mass or complex lesion. There is normal arterial and normal venous vascularity. The left ovary is visualized. The left ovary measures 3.4x2.2 cm. 16mm complex cyst. This is likely a hemorrhagic cyst. There is no visualized left adnexal mass or complex lesion. There is normal arterial and normal venous vascularity. There is no fluid in the cul-de-sac. Urinary bladder volume is (in cc) 407. US/Pelvic w/ Transvaginal IMPRESSION: There is a Nabothian cyst of the cervix. Fibroid uterus. There is a mass like lesion in the endocervical canal. This is abnormal. Direct visualization is recommended to exclude an underlying mass. Electronically Signed: Chris Del Real MD at 16:22 EDT ,
[2022-12-24 14:34] LABS: Cancer Antigen 125 11.8 U/mL (0.0-38.1)
== END | disposition home or self-care (01) ==
PROVIDERS: PCP Nurse Practitioner; Visit Provider Physician Assistant
DX: R10.2 Pelvic and perineal pain (principal); N83.202 Unspecified ovarian cyst, left side
CPT/HCPCS: 36415; 76830; 76856; 86304

== ENCOUNTER → 2023-02-28 | Outpatient (CLI) | payer OTHER, SELFPAY ==
--- NOTE | 2023-02-28 13:25 | RAD_ITS ---
INDICATION: headaches and pain in the cervicle EXAMINATION/TECHNIQUE: X-RAY - XR Spine Cervical 2 or 3 Views COMPARISON: None. FINDINGS: Vertebral body heights and alignments are maintained. No acute fracture or subluxation. Mild straightening of the normal cervical curvature. No spondylolisthesis or traumatic malalignment. Mild multilevel spondylytic changes. No significant facet arthropathy. Soft tissues are unremarkable. Visualized lung apices are clear. RAD/Cerv Spine 2 or 3 Views IMPRESSION: 1. No acute fracture or subluxation. 2. Mild straightening of the normal cervical curvature may be positional or could relate to acute muscle spasm/strain.. Electronically Signed: Jan Pollard MD at 15:47 EDT ,
--- NOTE | 2023-02-28 13:25 | RAD_ITS ---
INDICATION: L sciatica pain EXAMINATION/TECHNIQUE: X-RAY - XR Spine Lumbar Min 4 Views COMPARISON: None. FINDINGS: Minimal degenerative wedging of the L1 vertebral body. Vertebral body heights are otherwise maintained. No acute fracture or subluxation. Mild levoscoliotic curvature of the lower lumbar spine. 6 mm of grade 1 retrolisthesis of L3 on L4. There remains 6 mm of grade 1 retrolisthesis of L3 on L4 on both flexion and extension views. No traumatic malalignment. Moderate spondylitic changes and intervertebral disc space height loss at L3-L4. Mild to moderate multilevel facet arthropathy from the L2-S1 levels. Bilateral sacroiliac joints appear intact. No acute findings in the visualized abdomen or soft tissues. RAD/L/S Spine Min 4 Views IMPRESSION: 1. No acute fracture or subluxation. 2. Moderate degenerative changes at the L3-L4 level. 3. 6 mm of grade 1 retrolisthesis of L3 on L4 with no significant change on flexion and extension views. Electronically Signed: Jan Pollard MD at 15:55 EDT ,
== END | disposition home or self-care (01) ==
LOC: RAD 13:25
PROVIDERS: PCP Nurse Practitioner; Referring Provider Nurse Practitioner; Visit Provider Nurse Practitioner
DX: M54.2 Cervicalgia (principal); M54.32 Sciatica, left side
CPT/HCPCS: 72040; 72110

== ENCOUNTER → 2023-03-14 | Outpatient (CLI) | payer OTHER, SELFPAY ==
--- NOTE | 2023-03-14 16:15 | RAD_ITS ---
INDICATION: L HIP PAIN EXAMINATION/TECHNIQUE: X-RAY - XR Hip Unilateral with Pelvis when performed; 2-3 Views COMPARISON: Pelvis and left hip x-rays 07/05/2019. FINDINGS: No fracture demonstrated. Femoral heads are normal contour. No dislocation of the hips. Degenerative changes of the lower lumbar spine. RAD/HIP, UNI W/ Pelvis 2-3 Views IMPRESSION: No evidence of fracture. No acute findings. Electronically Signed: Millicent Kearney MD at 4:26 EDT ,
== END | disposition home or self-care (01) ==
LOC: RAD 16:13
PROVIDERS: PCP Nurse Practitioner; Referring Provider Anesthesiology Pain Medicine; Visit Provider Anesthesiology Pain Medicine
DX: M25.552 Pain in left hip (principal)
CPT/HCPCS: 73502

== ENCOUNTER → 2023-03-17 | Outpatient (CLI) | payer OTHER, SELFPAY ==
--- NOTE | 2023-03-17 10:16 | BI_ITS ---
MAMMOGRAPHY - BILATERAL SCREENING REASON FOR EXAM: Female, 47 years old. Routine annual screening examination. PERTINENT HISTORY: Mother with breast cancer. TECHNIQUE: Digital bilateral breast alex (3D mammographic acquisition) in the CC and MLO projections. 2-D mediolateral oblique (MLO) and craniocaudad (CC) views of both breasts were obtained. CAD: Full Field Digital Mammography with Computer Added Detection was performed. COMPARISON: Comparison is made with prior study dated October 22, 2020. FINDINGS: Breast Composition: The breasts are heterogeneously dense, which may obscure small masses. There are no dominant masses or suspicious calcifications. Stable small benign appearing bilateral axillary lymph nodes. No other significant abnormalities are identified. There has been no significant change since the prior study. BI/SCRN MAMM (CAD)W/ALEX BILAT IMPRESSION: Stable bilateral screening mammogram. Yearly follow-up mammogram recommended. (A) ASSESSMENT CATEGORY: BIRADS Category 2: Benign. A letter regarding these results will be sent to the patient by the facility within 30 days. Approximately 10% of breast cancers are not detected by mammography. A normal mammogram should not delay biopsy of a clinically suspicious abnormality. [id number] Electronically Signed: Dimitri Rick MD at 11:18 EDT ,
== END | disposition home or self-care (01) ==
LOC: OPBI 10:09
PROVIDERS: PCP Nurse Practitioner; Referring Provider Nurse Practitioner; Visit Provider Nurse Practitioner
DX: Z12.31 Encounter for screening mammogram for malignant neoplasm of breast (principal); Z80.3 Family history of malignant neoplasm of breast
CPT/HCPCS: 77063; 77067

== ENCOUNTER 2023-08-18 17:00 | Outpatient (RCR) | payer OTHER, SELFPAY ==
--- NOTE | 2023-05-13 07:44 | HP.PTEVAL ---
Patient's Visit Information Visit Information Visit Information: DEBBIE MALHOTRA is a 47 year old F referred to Physical Therapy by Dr. Dale Chacon MD with a diagnosis of BACK PAIN. Date of Evaluation: 05/09/23 Physical Therapist: Sharon Dominguez PT, Cert MDT Visit Plan Frequency: 2-3x /Week Duration: 4-6 Weeks Plan: AQUATIC THERAPY FOR PAIN RELIEF. POSTURE CORRECTION/STRENGTHENING, INSTRUCTION IN APPROPRIATE BODY MECHANICS AND ACTIVITY MODIFICATIONS. DLS STARTING WITH A NEUTRAL SPINE PROGRESSING ROM TOLERATED. JOSE LE ROM, STRETCHING AND STRENGTHENING. HEP INSTRUCTION. Subjective Subjective: Work/Leisure: [employer] AT [employer]. NOT CURRENTLY OFF WORK. Present symptoms: LOW BACK, LEFT BUTTOCK, L GROIN, L THIGH, L LEG AND FOOT PAIN. L LE NUMBNESS AND TINGLING. NO R LE SX'S. R BUTTOCK PAIN. Present since: ABOUT 30 YEARS. FLARED UP IN DECEMBER OF 2022. Pain Scale: WORST 9/10, LEAST 4/10 Currently: 5/10 Is it getting better, worse or staying the same: STAYING THE SAME Commenced as a result of: HELPING A PATIENT OUT OF W/C AND SHE GAVE OUT AND SHE FELL BACK INTO HER CHAIR AND I FELT A BAD THING HAPPEN IN MY BACK - PATIENT POINTING TO LOW BACK. AFTER THAT - FELT PAIN IN BACK ON LEG PRESS AT [employer] - I WAS REALLY GOING AT IT . Symptoms at onset: CENTRAL LBP - DECEMBER 2022 Worse: WALKING, STANDING, ANY KIND OF ACTIVITY, VACUUMING, LIFTING, BENDING, SITTING. (CAN'T SIT ON FLOOR). PATIENT REPORTS HER GROIN PAIN GETS SO BAD SHE CAN'T EVEN WALK SOMETIMES. Better: TRAMADOL. IBUPROFEN. AM. LYING DOWN. ICE. WIERD STRETCH IN STANDING BENDING FORWARD AND PUSHING ON THIGHS TEMPORARILY DECREASES GROIN PAIN. Disturbed sleep: SOMETIMES Previous history/Previous treatment: 3 BACK SURGERIES WITH THE LAST ONE BEING IN MAY 2014. NO LUMBAR FUSION. UMA'S WITH LAST INJECTION BEING MARCH 2023. LAST INJECTION HELPED FOR A COUPLE WEEKS. GROIN PAIN IS BETTER NOW THAN BEFORE INJECTIONS. PT MULTIPLE TIMES. CHIROPRACTIC BEFORE SX. Coughing/sneezing/straining: NEGATIVE Gait: NO FALLS Bowel or Bladder Dysfunction: NO Accidents: NO Unexplained weight loss: NO Imaging: LUMBAR MRI 2013. RECENT LUMBAR X-RAY ABOUT 1 MO AGO - SEE [facility] EMR. ALSO RECENT HIP X-RAYS - SEE [facility] EMR. PMH/Recent major surgery: R SHLD PAIN. L HIP CHRONICLY POP'S. Objective Objective: Sitting/Standing Posture: POOR. SCOLIOSIS. Active Correction of posture: NE Other Observations: INDEP GAIT AND TRANSFERS WITH NO GROSS DEVIATIONS NOTED. Sensory deficit: JOSE LE LIGHT TOUCH SENSATION GROSSLY INTACT AND SYMMETRICAL ROM deficit: TIGHT JOSE HS'S AND GASTROC-SOLEUS COMPLEX'S. ALSO TIGHT JOSE HIP IR'S. Motor deficit: JOSE LE'S 5/5 WITH MMT'ING EXCEPT HIPS R 4/5, L 4-/5. Reflexes: UNABLE TO ELICIT JOSE LE DTR'S. Dural Signs: NEGATIVE JOSE LE'S. Lumbar mvmt loss: flex - NIL ext - MOD R SG - MOD L SG - MOD PATIENT REPORTS INCREASED LBP WITH LUMBAR EXTENSION ROM TESTING. BENDING R CAUSES R BUTTOCK PAIN AND L BENDING INCREASES L LBP. NO PAIN WITH FLEXION TESTING. Core strength: POOR Palpation: MILD TENDERNESS WITH PALPATION OF LUMBAR SPINE AND JOSE PARASPINALS AND BUTTOCK REGIONS L>R. Balance/Special Test Scores Oswestry Low Back Score: 17 Goals Goal 1:: DECREASE C/O LOW BACK AND L LE SX'S. Goal Time Frame: 4-6 Weeks Goal 2:: IMPROVE PERSONAL CARE, LIFTING, WALKING, STANDING, SOCIAL LIFE, TRAVEL AND WORK/HOMEMAKING FUNCTION Goal Time Frame: 4-6 Weeks Goal 3:: INSTRUCT IN PROPHYLAXIS Goal Time Frame: 4-6 Weeks Anticipated Interventions Patient/Client Instruction: Educate patient on: Condition, Plan of Care and Risk Factors For the Purpose of:: To improve self management Therapeutic Exercise to Include: Strength training, Body mechanics, Postural training, Flexibilty training, Neuromotor development, In an aquatic setting and Dynamic Lumbar Stabilization For the Purpose of:: To decrease pain, To increase ROM, To improve muscle performance and motor function, To increase tolerance to activity/condition/position and To improve ability of physical actions for home/community/work/leisure Text: Thank you for the opportunity to evaluate your patient. For Medicare and Medicare HMO plans, please review the plan of care and approve it. It will need to be FAXED BACK to us at [phone] for Medicare purposes. For Medicare only, by signing this I certify the plan of care. Please let me know if there are questions or concerns regarding this plan of care. Physician Signature: Date:
--- NOTE | 2023-05-26 18:08 | HP.PTREVAL ---
Re-Evaluation Intro: Dr. Dale Chacon MD, It has been my pleasure to treat DEBBIE MALHOTRA over the last 7 visits for BACK PAIN. Please see the progress note below for an update on the physical therapy plan of care! Subjective Subjective: I just transitioned to land, and it is helping me a lot. Most of my pain is in the LB, L SIJ, and L groin. Walking is what causes the most pain. Objective Objective/Function: LBP ranges from 3-10/10 Pt reports none of her IADL's have improved or become easier yet Pt was not progressing with AT, but reports the land therapy she had last time really helped some. Plan Plan Plan: Continue with land based therapy consisting of L/S stab ex's, postural edu, LE strengthening, and HEP Balance/Gait/Functional tests Balance/Special Test Scores Oswestry Low Back Score: 16 Goals Goals Goal 1:: DECREASE C/O LOW BACK AND L LE SX'S. Goal Time Frame: 4-6 Weeks Goal Progress: Not Progressing Goal 2:: IMPROVE PERSONAL CARE, LIFTING, WALKING, STANDING, SOCIAL LIFE, TRAVEL AND WORK/HOMEMAKING FUNCTION Goal Time Frame: 4-6 Weeks Goal Progress: Not Progressing Goal 3:: INSTRUCT IN PROPHYLAXIS Goal Time Frame: 4-6 Weeks Goal Progress: Not observed Anticipated Interventions Anticipated Interventions Patient/Client Instruction: Educate patient on: Condition, Plan of Care and Risk Factors For the Purpose of:: To improve self management Therapeutic Exercise to Include: Strength training, Body mechanics, Postural training, Flexibilty training, Neuromotor development, In an aquatic setting and Dynamic Lumbar Stabilization For the Purpose of:: To decrease pain, To increase ROM, To improve muscle performance and motor function, To increase tolerance to activity/condition/position and To improve ability of physical actions for home/community/work/leisure Re-Evaluation Ending Re-evaluation ending: Please do not hesitate to contact me at [phone] by phone or if you have questions or concerns regarding this new plan of care! Sincerely, Chris Hernandez, PT, ATC
--- NOTE | 2023-06-20 17:54 | HP.PTREVAL_ITS ---
Re-Evaluation Intro: Dr. Dale Chacon MD, It has been my pleasure to treat DEBBIE MALHOTRA over the last 15 visits for BACK PAIN. Please see the progress note below for an update on the physical therapy plan of care! Subjective Subjective: PATIENT REPORTS HER GROIN PAIN HAS IMPROVED AND SOMETIMES IT ISN'T THERE AT ALL. SHE ALSO REPORTS HER L SI JT DOESN'T HURT BAD EITHER. SHE STATES SHE USE TO GET A STABBING PAIN IN HER LOWER LEFT LEG AND THAT IS GONE BUT SHE STILL GETS THE TINGLING IN HER LEFT LEG. THE TINGLING COMES AND GOES. R BUTTOCK PAIN IS GONE. I KNOW I AM GETTING STRONGER AND I DON'T WANT TO STOP PT . REPORTS COMPLIANCE WITH HEP. Objective Objective/Function: PATIENT WAS SEEN TODAY FOR RE-ASSESSMENT OF PROGRESS TOWARD THE SET PT GOALS AND THE NEED FOR FURTHER PHYSICAL THERAPY VS READINESS FOR DISCHARGE. PATIENT IS MAKING SLOW PROGRESS WITH PT AND IS A GOOD CANDIDATE TO CONTINUE PT BASED ON PROGRESS MADE AND ROOM FOR FURTHER IMPROVEMENT. PATIENT IS AGREEABLE. UPON EXAM TODAY: INDEP GAIT AND TRANSFERS WITH NO GROSS DEVIATIONS NOTED. Sensory deficit: JOSE LE LIGHT TOUCH SENSATION GROSSLY INTACT AND SYMMETRICAL ROM deficit: TIGHT JOSE HS'S AND GASTROC-SOLEUS COMPLEX'S. ALSO TIGHT JOSE HIP IR'S. Motor deficit: JOSE LE'S 5/5 WITH MMT'ING EXCEPT HIPS R 5/5, L 4/5. Dural Signs: NEGATIVE JOSE LE'S. Lumbar mvmt loss: flex - NIL ext - MOD R SG - MOD L SG - MOD PATIENT REPORTS MILD INCREASED LBP WITH LUMBAR EXTENSION ROM TESTING. BENDING R CAUSES MILD R LB PAIN AND L BENDING CAUSES C/O MILD INCREASED PAIN IN L LB. NO PAIN WITH FLEXION TESTING. Core strength: POOR Palpation: PATIENT DENIES TENDERNESS WITH LUMBOSACRAL AND PARASPINAL PALPATION TODAY. Plan Plan Plan: Continue with land based therapy consisting of L/S stab ex's, postural edu, LE strengthening, and HEP. 2-3X'S A WK X 4 WKS WORKING TOWARD [employer] AT [employer]. Balance/Gait/Functional tests Balance/Special Test Scores Oswestry Low Back Score: 16 Goals Goals Goal 1:: DECREASE C/O LOW BACK AND L LE SX'S. Goal Time Frame: 4-6 Weeks Goal Progress: Progressing Goal 2:: IMPROVE PERSONAL CARE, LIFTING, WALKING, STANDING, SOCIAL LIFE, TRAVEL AND WORK/HOMEMAKING FUNCTION Goal Time Frame: 4-6 Weeks Goal Progress: Progressing Goal 3:: INSTRUCT IN PROPHYLAXIS Goal Time Frame: 4-6 Weeks Goal Progress: Progressing Anticipated Interventions Anticipated Interventions Patient/Client Instruction: Educate patient on: Condition, Plan of Care and Risk Factors For the Purpose of:: To improve self management Therapeutic Exercise to Include: Strength training, Body mechanics, Postural training, Flexibilty training, Neuromotor development, In an aquatic setting and Dynamic Lumbar Stabilization For the Purpose of:: To decrease pain, To increase ROM, To improve muscle performance and motor function, To increase tolerance to activity/condition/position and To improve ability of physical actions for home/community/work/leisure Re-Evaluation Ending Re-evaluation ending: Please do not hesitate to contact me at [phone] by phone or if you have questions or concerns regarding this new plan of care! Sincerely, Sharon Dominguez, PT, Cert MDT
--- NOTE | 2023-07-25 18:51 | HP.PTREVAL ---
Re-Evaluation Intro: Dr. Dale Chacon MD, It has been my pleasure to treat DEBBIE MALHOTRA over the last 24 visits for BACK PAIN. Please see the progress note below for an update on the physical therapy plan of care! Subjective Subjective: PATIENT REPORTS THAT SHE HAS CONTINUED THERAPY THE TINGLING BELOW HER KNEE ON THE LEFT HAS GONE AWAY (NONE FOR ABOUT 3 WKS). SHE REPORTS HER GROIN PAIN HAS CONTINUED TO IMPROVE BUT IT IS STILL THERE. I CAN STAND LONGER WITH LESS GROIN AND BACK PAIN NOW . PATIENT ALSO REPORTS SHE CAN WALK TO AND FROM HER CAR BEFORE AND AFTER WORK WITH LESS L GROIN PAIN THAN SHE COULD A MONTH AGO. L BUTTOCK PAIN IS GETTING BETTER TOO. PATIENT REPORTS SHE IS REALLY HOPING TO CONTINUE PT AND SHE WOULD LIKE TO JOIN [employer] TO WORK TOWARD INDEP EX. SHE STATES SHE REALLY DOES NOT WANT TO HAVE ANOTHER BACK SURGERY. Objective Objective/Function: PATIENT WAS SEEN TODAY FOR RE-ASSESSMENT OF PROGRESS TOWARD THE SET PT GOALS AND THE NEED FOR FURTHER PHYSICAL THERAPY VS READINESS FOR DISCHARGE. PATIENT IS CONTINUING TO SUBJECTIVELY REPORT PROGRESS WITH PT BUT UPON EXAM TODAY HER LUMBAR ROM AND C/O PAIN WITH LUMBAR ROM TESTING IS NOT CHANGING AND HER L HIP IS STILL A LITTLE WEAKER THAN THE RIGHT. HER OSWESTRY SCORE HAS ONLY IMPROVED 2 POINTS SINCE INITIAL EVAL. PHYSICIAN RE-ASSESSMENT IS RECOMMENDED. PATIENT IS AGREEABLE AND FEELS SHE MIGHT NEED AN MRI OF HER BACK OR HIP BUT IS RELUCTANT DUE TO WAIT TIME. UPON EXAM TODAY: INDEP GAIT AND TRANSFERS WITH NO GROSS DEVIATIONS NOTED. Sensory deficit: JOSE LE LIGHT TOUCH SENSATION GROSSLY INTACT AND SYMMETRICAL ROM deficit: TIGHT JOSE HS'S AND GASTROC-SOLEUS COMPLEX'S. ALSO TIGHT JOSE HIP IR'S. Motor deficit: JOSE LE'S 5/5 WITH MMT'ING EXCEPT HIPS R 5/5, L 4/5. Dural Signs: NEGATIVE JOSE LE'S. Lumbar mvmt loss: flex - NIL ext - MOD R SG - MOD L SG - MOD PATIENT REPORTS MILD INCREASED CENTRAL LBP WITH LUMBAR EXTENSION ROM TESTING. BENDING R CAUSES C/O MILD R LB PAIN AND L BENDING CAUSES C/O MILD INCREASED PAIN IN L LB. NO C/O PAIN WITH FLEXION TESTING. PATIENT WOULD BENEFIT FROM CONTINUED PT 1X/WK X 3 WKS WHILE PATIENT STARTS INDEP EX 2X'S A WK TO PROGRESS EX AND HELP SUCCESSFULLY SAFELY TRANSITION TO INDEP GYM EX. PATIENT IS AGREEABLE. WRITTEN EX LOG OF EX'S FROM LAST VISIT PROVIDED TO PATIENT. Plan Plan Plan: Consider adding Standing Cable MR's and Standing Cable Side Rows or Punches for Core Stability next visit. Update Gym Log for Patient. CONTINUE PT 1X/WK X 3 WKS WORKING TOWARD [facility] INDEP GYM EX AT . PATIENT AGREEABLE. Balance/Gait/Functional tests Balance/Special Test Scores Oswestry Low Back Score: 15 Goals Goals Goal 1:: DECREASE C/O LOW BACK AND L LE SX'S. Goal Time Frame: 4-6 Weeks Goal Progress: Subjectively improving Goal 2:: IMPROVE PERSONAL CARE, LIFTING, WALKING, STANDING, SOCIAL LIFE, TRAVEL AND WORK/HOMEMAKING FUNCTION Goal Time Frame: 4-6 Weeks Goal Progress: Not sig on Oswesty Goal 3:: INSTRUCT IN PROPHYLAXIS Goal Time Frame: 4-6 Weeks Goal Progress: Progressing Anticipated Interventions Anticipated Interventions Patient/Client Instruction: Educate patient on: Condition, Plan of Care and Risk Factors For the Purpose of:: To improve self management Therapeutic Exercise to Include: Strength training, Body mechanics, Postural training, Flexibilty training, Neuromotor development, In an aquatic setting and Dynamic Lumbar Stabilization For the Purpose of:: To decrease pain, To increase ROM, To improve muscle performance and motor function, To increase tolerance to activity/condition/position and To improve ability of physical actions for home/community/work/leisure Re-Evaluation Ending Re-evaluation ending: Please do not hesitate to contact me at [phone] by phone or if you have questions or concerns regarding this new plan of care! Sincerely, Sharon Dominguez, PT, Cert MDT
== END 2023-08-18 19:00 | disposition home or self-care (01) ==
LOC: PT 17:00
PROVIDERS: PCP Nurse Practitioner; Referring Provider Anesthesiology Pain Medicine; Visit Provider Anesthesiology Pain Medicine
DX: M54.9 Dorsalgia, unspecified (principal)
CPT/HCPCS: 97110; 97113; 97140; 97162; 97164; 97530

== ENCOUNTER → 2023-09-19 | Outpatient (CLI) | payer OTHER, SELFPAY ==
--- NOTE | 2023-09-19 16:15 | MRI_ITS ---
STUDY: MRI LUMBAR SPINE WITHOUT CONTRAST REASON FOR EXAM: Female, 47 years old. RADICULOPATHY TECHNIQUE: Standardized fat and water weighted pulse sequences were obtained in the sagittal and axial planes. COMPARISON: Lumbar spine radiograph February 28, 2023. FINDINGS: Slight anterior wedging L1, L2 and L3. No bone marrow edema or retropulsion. T12-L1: Normal endplates. Normal disc height, hydration and morphology. Normal bilateral facet joints. Normal central canal and bilateral lateral recesses. Normal bilateral intervertebral neural foramina. Normal lumbar lordosis. There is no substantial scoliosis. Normal conus medullaris that terminates at the T12-L1. L1-2: Normal endplates. Normal disc height, hydration and morphology. Hypertrophic bilateral facet joints. Normal central canal and bilateral lateral recesses. Moderate narrowing bilateral intervertebral neural foramina. L2-3: Normal endplates. Normal disc height, hydration and morphology. Hypertrophic bilateral facet joints. Normal central canal and bilateral lateral recesses. Moderate narrowing bilateral intervertebral neural foramina. Laminectomy. L3-4: Disc space narrowing and slight retrolisthesis. Circumferential disc marginal osteophyte. Laminectomy. Central canal patent. Moderate narrowing of the neural foramina bilaterally. L4-5: Normal endplates. Normal disc height, hydration and morphology. Hypertrophic bilateral facet joints. Normal central canal and bilateral lateral recesses. Moderate narrowing bilateral intervertebral neural foramina. Laminectomy. L5-S1: Normal endplates. Normal disc height, hydration and morphology. Hypertrophic bilateral facet joints. Normal central canal and bilateral lateral recesses. Moderate narrowing bilateral intervertebral neural foramina. Normal visualized sacral ala. Normal visualized paraspinous soft tissue structures. MRI/Spine Lumbar (Routine) IMPRESSION: Remote mild compression fractures L1-L2 and L3. Multilevel bilateral neural foraminal narrowing. Laminectomies L3-L4 and L5. Electronically Signed: Felix Engle MD at 0:10 EST ,
== END | disposition home or self-care (01) ==
LOC: MRI 15:54
PROVIDERS: PCP Nurse Practitioner; Referring Provider Anesthesiology Pain Medicine; Visit Provider Anesthesiology Pain Medicine
DX: M54.16 Radiculopathy, lumbar region (principal)
CPT/HCPCS: 72148

== ENCOUNTER → 2023-10-25 | Outpatient (CLI) | payer OTHER, SELFPAY ==
--- NOTE | 2023-10-25 10:33 | BD_ITS ---
STUDY: DUAL ENERGY X-RAY ABSORPTIOMETRY / DXA REASON FOR EXAM: Female, 48 years old. [id number] TECHNIQUE: Bone Mineral Density (BMD) measurements of lumbar spine and bilateral hips were obtained. COMPARISON: None. FINDINGS: Lumbar Spine (L1-L4): g/cm2 (1.206) / T-score (1.4) / Z-score (2.2) Findings are suggestive of normal bone density with a low fracture risk. Left Femur Total: g/cm2 (0.974) / T-score (0.3) / Z-score (0.7) Left Femoral Neck: g/cm2 (0.881) / T-score (0.3) / Z-score (1.0) Right Femur Total: g/cm2 (0.988) / T-score (0.4) / Z-score (0.8) Right Femoral Neck: g/cm2 (0.779) / T-score (-0.6) / Z-score (0.1) BD/Dexa Bone Density Study IMPRESSION: The patient is considered osteopenic as outlined below according to World Pierre Organization (WHO) criteria with a low fracture risk. Reference Information: The T-score is the number of standard deviations above or below the standard which is normal for young adults at their peak bone mineral density. The World Health Organization (WHO) interprets the T-scores as follows: Above -1 Normal bone density Between -1 and -2.5 Osteopenia Equal to / or below -2.5 Osteoporosis As a practical clinical guideline, osteopenia may be graded as follows: Mild -1 through -1.5 Moderate -1.6 through -2.0 Severe -2.1 through -2.4 The Z-score is the number of standard deviations above or below age-matched controls. A Z-score of less than -1.5 would be considered abnormal. References: 1. NIH Osteoporosis and Related Bone Diseases www osteo.org 2. International Society for Clinical Densitometry www iscd.org 3. National Osteoporosis Foundation www nof.org Electronically Signed: Dimitri Rick MD at 12:38 EST ,
== END | disposition home or self-care (01) ==
LOC: OPBD 10:30
PROVIDERS: PCP Nurse Practitioner; Referring Provider Physician Assistant; Visit Provider Physician Assistant
DX: Z13.820 Encounter for screening for osteoporosis (principal); Z78.0 Asymptomatic menopausal state
CPT/HCPCS: 77080

== ENCOUNTER → 2024-02-15 | Outpatient (CLI) | payer OTHER, SELFPAY ==
--- NOTE | 2024-02-15 09:01 | US_ITS ---
STUDY: SUPERFICIAL ULTRASOUND - RIGHT WRIST. REASON FOR EXAM: Female, 48 years old. 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 COMPARISON: None. FINDINGS: The lateral area of the right wrist was examined with ultrasound. The palpable lump corresponds to a 1.6 cm x 1 cm x 0.5 cm ganglion cyst. A lucent tract is seen tracking to the level of the skin. Medial to this, there is an area that runs anterior and laterally is noted that runs posterior. The cyst is 3.8 cm from the skin surface. US/Ext Non Vasc Limited/Soft Tiss IMPRESSION: 1.6 cm x 1 cm x 0.5 cm ganglion cyst with a track heading towards the skin surface. Medially, there is an artery that runs anterior to this cyst and laterally there is an artery that runs posterior to the cyst. The cyst is at 3.8 mm from the skin surface. Electronically Signed: Dimitri Rick MD at 14:26 EDT ,
== END | disposition home or self-care (01) ==
LOC: US 09:00
PROVIDERS: PCP Nurse Practitioner; Referring Provider Orthopaedic Surgery Sports Medicine; Visit Provider Orthopaedic Surgery Sports Medicine
DX: M67.431 Ganglion, right wrist (principal)
CPT/HCPCS: 76882

== ENCOUNTER 2024-03-28 14:58 | Outpatient (CLI) | payer OTHER, SELFPAY ==
[2024-03-28] MEDS: Bupivacaine Mpf 0.5% 30 ML VIAL INFILT (15:30)
--- NOTE | 2024-03-28 15:54 | PCM.OP.PRO ---
Procedure Report Date of Procedure: 03/28/24 Assessment & Plan Assessment/Plan (1) Ganglion cyst of volar aspect of right wrist: PLAN: PROCEDURE: Ultrasound guided drainage of ganglion cyst of volar aspect of right wrist ORDERING PROVIDER: Dr. Kim INDICATION: Female, 48 years old. Right wrist volar ganglion cyst. PROVIDER: MIROSLAVA Lerma TECHNIQUE: The risks, benefits, and alternatives to the procedure were explained to the patient. The specific risks of bleeding and infection were detailed and accepted. Witnessed informed consent was obtained. The right wrist l region was ultrasonographically surveyed and Doppler was applied. The cyst was identified. The skin was prepped with chlorhexidine and sterile field established. 0.5% bupivacaine was used for local anesthetic. Using ultrasound guidance, the cyst was accessed with an 18-gauge needle. A total of 0.5 ml of clear serous colored gelatinous fluid was aspirated from the cyst. A second attempt was made to try to aspirate the remaining fluid with a new 18-gauge needle and both a 10 mL syringe and a 50 mL syringe, but to no avail. The needle was removed and a sterile dressing was applied. The procedure was well tolerated. IMPRESSION: Successful ultrasound-guided aspiration of right wrist volar ganglion cyst; however, only 0.5 ml aspirated. Procedures Radiology Radiology US Procedures: 08895 Cyst Puncture Multi Select Codes Radiology Radiology: 09147 Echo guide for biopsy (ultrasound guidance for needle placement during aspiration)
== END 2024-03-28 23:59 | disposition home or self-care (01) ==
PROVIDERS: PCP Nurse Practitioner; Referring Provider Orthopaedic Surgery Sports Medicine; Visit Provider Orthopaedic Surgery Sports Medicine
DX: M67.431 Ganglion, right wrist (principal)
CPT/HCPCS: 10160; 76942

== ENCOUNTER → 2024-04-03 | Outpatient (CLI) | payer OTHER, SELFPAY ==
--- NOTE | 2024-04-03 14:01 | BI_ITS ---
MAMMOGRAPHY - BILATERAL SCREENING REASON FOR EXAM: Female, 48 years old. Routine annual screening examination. PERTINENT HISTORY: Mother with breast cancer. TECHNIQUE: Digital bilateral breast alex (3D mammographic acquisition) in the CC and MLO projections. 2-D mediolateral oblique (MLO) and craniocaudad (CC) views of both breasts were obtained. CAD: Full Field Digital Mammography with Computer Added Detection was performed. COMPARISON: Comparison is made with prior study dated March 17, 2023 and October 22, 2020. FINDINGS: Breast Composition: The breasts are heterogeneously dense, which may obscure small masses. There are no dominant masses or suspicious calcifications. Stable small benign-appearing bilateral axillary lymph nodes. No other significant abnormalities are identified. There has been no significant change since the prior study. BI/SCRN MAMM (CAD)W/ALEX BILAT IMPRESSION: Stable bilateral screening mammogram. Yearly follow-up mammogram recommended. (A) ASSESSMENT CATEGORY: BIRADS Category 2: Benign. A letter regarding these results will be sent to the patient by the facility within 30 days. Approximately 10% of breast cancers are not detected by mammography. A normal mammogram should not delay biopsy of a clinically suspicious abnormality. [id number] Electronically Signed: Dimitri Rick MD at 8:18 EDT ,
== END | disposition home or self-care (01) ==
LOC: OPBI 13:58
PROVIDERS: PCP Nurse Practitioner; Referring Provider Physician Assistant; Visit Provider Physician Assistant
DX: Z12.31 Encounter for screening mammogram for malignant neoplasm of breast (principal); Z80.3 Family history of malignant neoplasm of breast
CPT/HCPCS: 77063; 77067

== ENCOUNTER → 2024-11-20 | Outpatient (CLI) | payer OTHER, SELFPAY ==
--- NOTE | 2024-11-20 16:40 | RAD_ITS ---
PROCEDURE: SHOULDER MIN 2 VIEWS REASON FOR EXAM: Bilateral shoulder pain. TECHNIQUE: Four view right shoulder series five view left shoulder series (combined dictation). COMPARISON: Right shoulder study of 01/14/2022. RAD/Shoulder min 2 Views IMPRESSION: Right shoulder: [id number]-[id number] right acromioclavicular joint degenerative changes are noted. Mild degenerative changes are seen about the right humeral head greater tuberos ity. The right glenohumeral joint demonstrates minimal degenerative changes, without apparent joint narrowing. No fracture or dislocation is seen. Left shoulder: [id number] left acromioclavicular joint degenerative changes are seen. Minimal left glenohumeral joint degenerative changes are noted, without apparen t joint narrowing. No fracture or dislocation is evident. Reading Location: [id number]
--- NOTE | 2024-11-20 16:40 | RAD_ITS ---
PROCEDURE: SHOULDER MIN 2 VIEWS REASON FOR EXAM: Bilateral shoulder pain. TECHNIQUE: Four view right shoulder series five view left shoulder series (combined dictation). COMPARISON: Right shoulder study of 01/14/2022. RAD/Shoulder min 2 Views IMPRESSION: Right shoulder: [id number]-[id number] right acromioclavicular joint degenerative changes are noted. Mild degenerative changes are seen about the right humeral head greater tuberos ity. The right glenohumeral joint demonstrates minimal degenerative changes, without apparent joint narrowing. No fracture or dislocation is seen. Left shoulder: [id number]-[id number]-[id number] left acromioclavicular joint degenerative changes are seen. Minimal left glenohumeral joint degenerative changes are noted, without apparen t joint narrowing. No fracture or dislocation is evident. Reading Location: [id number]
== END | disposition home or self-care (01) ==
LOC: RAD 16:37
PROVIDERS: PCP Nurse Practitioner; Referring Provider Orthopaedic Surgery; Visit Provider Orthopaedic Surgery
DX: M25.511 Pain in right shoulder (principal); M25.512 Pain in left shoulder
CPT/HCPCS: 73030

== ENCOUNTER 2025-01-10 18:00 | Outpatient (RCR) | payer OTHER, SELFPAY ==
--- NOTE | 2024-12-10 13:59 | HP.PTEVAL ---
Patient's Visit Information Visit Information Visit Information: DEBBIE MALHOTRA is a 49 year old F referred to Physical Therapy by Dr. Ashu Rodriguez DO with a diagnosis of Cervicalgia. Date of Evaluation: 12/10/24 Physical Therapist: Chris Hernandez, PT, ATC Visit Plan Frequency: 2x /Week Duration: 4-6 Weeks Plan: Assess benefit of C-Tx. Add DTR, c/s mobs, and scap stab ex's Subjective Subjective: Pt reports she has had neck pain intermittently for many years. Pt notes she has had PT in the past which included massage and DN which really helped. Pt reports she has had recent injections into B shoulders secondary to bursitis that has really helped. Pt reports her L hand will go numb on occasion in her ring and little finger. Pt is R hand dominant. Pt also complains of pain that is in her L intrascapular region which can be severe at times and limit her sleep. Pt reports she also gets headaches that originate in the base of her skull and radiates to her head. 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 Pt reports no sleep difficulty at this time as long as she takes pain meds. Pt reports she is limited with all IADL's, but works through the pain to get them done. 1/10 pain while sitting here at rest, 10/10 pain at worst. Pain Neck pain: Pain Intensity (Out of 10): 1 Pain Intensity Range: 10 Objective Objective: Neuro: B UE sensation is WNL to light touch. B bicipital reflex= 2/3 Palpation: Pt has significant muscle guarding throughout cervical spin and upper trap regions. No deformity noted. MMT: B UE's are strong and equal throughout ROM: Pt is minimally limited with retraction and extension. All other motions are WNL Repeated movements: RPIS 10x3 increased pain at base of skull. RRIS radiated sx's into interscap region Special tests: Pos apley compression and distraction tests Balance/Special Test Scores Oswestry Neck Score: 13 Goals Goal 1:: Decrease neck pain x 50% to aid with sleep Goal Time Frame: 4-6 Weeks Goal 2:: Decrease the frequency and intensity of L UE radiculopathy x 50% to aid with IADL's Goal Time Frame: 4-6 Weeks Goal 3:: Decrease the frequency of headaches x 50% to aid with sleep Goal Time Frame: 4-6 Weeks Goal 4:: I with HEP Goal Time Frame: 4-6 Weeks Rehabilitation Potential Physical Therapy Diagnosis: Pt has L UE radiculopathy, Headaches, and Neck pain secondary to degenerative changes of the C/S Rehabilitation Potential: Good Anticipated Interventions Patient/Client Instruction: Educate patient on: Condition and Plan of Care For the Purpose of:: To improve self management Therapeutic Exercise to Include: Strength training, Endurance training, Body mechanics, Postural training and Scapular Strength/Stabilization For the Purpose of:: To decrease pain, To increase ROM and To improve muscle performance and motor function Manual Therapy Techniques to Include: Mobilization and Soft tissue mobilization For the Purpose of:: To decrease pain and To improve muscle performance and motor function Intermittent cervical traction: Yes For the Purpose of:: To decrease pain and To improve muscle performance and motor function Text: Thank you for the opportunity to evaluate your patient. For Medicare and Medicare HMO plans, please review the plan of care and approve it. It will need to be FAXED BACK to us at [phone] for Medicare purposes. For Medicare only, by signing this I certify the plan of care. Please let me know if there are questions or concerns regarding this plan of care. Physician Signature: Date:
--- NOTE | 2025-04-15 14:31 | HP.PT.NRP ---
Patient Information Patient Information: DEBBIE MALHOTRA was seen in my office for initial evaluation on 12/10/24. The following Plan of Care was established for this patient: POC Established Initial Frequency: 2x /Week Initial Duration: 4-6 Weeks Anticipated Interventions Patient/Client Instruction: Educate patient on: Condition and Plan of Care For the Purpose of:: To improve self management Therapeutic Exercise to Include: Strength training, Endurance training, Body mechanics, Postural training and Scapular Strength/Stabilization For the Purpose of:: To decrease pain, To increase ROM and To improve muscle performance and motor function Manual Therapy Techniques to Include: Mobilization and Soft tissue mobilization For the Purpose of:: To decrease pain and To improve muscle performance and motor function Intermittent cervical traction: Yes For the Purpose of:: To decrease pain and To improve muscle performance and motor function Last Seen Last Seen: This patient was last seen in our office . Pertinent comments regarding their Physical therapy will appear below: Pt has not returned for greater than 30 days and is discontinued at this time. At this point I will be discontinuing this patient from physical therapy. I would be happy to see this patient again in the future if found appropriate by the physician. Thank you! Chris Hernandez, PT, ATC Balance/Gait/Functional tests Balance/Special Test Scores Oswestry Neck Score: 13
== END 2025-01-10 19:00 | disposition home or self-care (01) ==
LOC: PT 18:00
PROVIDERS: PCP Nurse Practitioner; Referring Provider Orthopaedic Surgery; Visit Provider Orthopaedic Surgery
DX: M75.51 Bursitis of right shoulder (principal); M75.52 Bursitis of left shoulder; M54.2 Cervicalgia; M54.6 Pain in thoracic spine
CPT/HCPCS: 97012; 97110; 97140; 97161

== ENCOUNTER → 2025-07-30 | Outpatient (CLI) | payer OTHER, SELFPAY ==
--- NOTE | 2025-07-30 13:58 | BI_ITS ---
EXAM: SCRN MAMM (CAD)W/ALEX BILAT DATE: 07/30/2025 CLINICAL HISTORY: F, Age 49 y/o , SCREENING TECHNIQUE: Procedure Code: [id number] Modality: MG Procedure: SCRN MAMM (CAD)W/ALEX BILAT COMPARISON: Prior exam(s) were compared FINDINGS: TISSUE DENSITY: The breasts are heterogeneously dense, which may obscure small masses. Bilateral Breast Mammographic Findings: No suspicious masses, calcifications or other abnormalities are identified. BI/SCRN MAMM (CAD)W/ALEX BILAT IMPRESSION: No mammographic evidence of malignancy in either breast. OVERALL FINAL ASSESSMENT BI-RADS 1: NEGATIVE. RECOMMENDATION: Routine annual follow-up in 1 Year Additional Recommendation none A letter with findings and recommendations will be mailed to the patient. Reading Location: [id number]
--- OUTSIDE RECORDS SUMMARY | 2025-07-30 14:18 | XMS RPT_ITS | CCD ---
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 #### L 100.0200, L500.2900, L400.0100 #### [facility] [address] [place], [address] MCHC (RBC) [Mass/Vol] 34.9 g/dL Normal 32-36 [facility] Comment on above: Performed By: #### L 100.0200, L500.2900, L400.0100 #### [facility] [address] [place], [address] MCV (RBC) [Entitic vol] 93.8 fL Normal 81-99 [facility] Comment on above: Performed By: #### L 100.0200, L500.2900, L400.0100 #### [facility] [address] [place], [address] Monocytes/100 WBC (Bld) 9.8 % Normal 0-10 [facility] Comment on above: Performed By: #### L 100.0200, L500.2900, L400.0100 #### [facility] [address] [place], [address] Neutrophils/100 WBC (Bld) 46.3 % Low 47-70 [facility] Comment on above: Performed By: #### L 100.0200, L500.2900, L400.0100 #### [facility] [address] [place], [address] NRBC # 0.00 10 3/uL Normal 0-5 [facility] Comment on above: Performed By: #### L 100.0200, L500.2900, L400.0100 #### [facility] [address] [place], [address] Nucleated RBC (Bld) [#/Vol] 0 10*3/uL Normal 0-5 [facility] Comment on above: Performed By: #### L 100.0200, L500.2900, L400.0100 #### [facility] [address] [place], [address] Platelet mean volume (Bld) [Entitic vol] 9.6 fL Normal 6.2-12.0 [facility] Comment on above: Performed By: #### L 100.0200, L500.2900, L400.0100 #### [facility] [address] [place], [address] Platelets (Bld) [#/Vol] 316 10*3/uL Normal 150-450 [facility] Comment on above: Performed By: #### L 100.0200, L500.2900, L400.0100 #### [facility] [address] [place], [address] RBC (Bld) [#/Vol] 4.85 10*6/uL Normal 4.2-5.4 [facility] Comment on above: Performed By: #### L 100.0200, L500.2900, L400.0100 #### [facility] [address] [place], [address] RDW SD 43.3 fl Normal 35.1-43.9 [facility] Comment on above: Performed By: #### L 100.0200, L500.2900, L400.0100 #### [facility] [address] [place], [address] WBC (Bld) [#/Vol] 8.8 10*3/uL Normal 4.4-11.0 [facility] Comment on above: Performed By: #### L 100.0200, L500.2900, L400.0100 #### [facility] [address] [place], [address] Employee Profileon LDH 94 U/L Normal 84-246 [facility] Comment on above: Performed By: #### L 100.0200, L500.2900, L400.0100 #### [facility] [address] [place], [address] Phosphate [Mass/Vol] 3.6 mg/dL Normal 2.7-4.5 [facility] Comment on above: Performed By: #### L 100.0200, L500.2900, L400.0100 #### [facility] [address] [place], [address] URIC 3.3 mg/dL Normal 2.6-6.0 [facility] Comment on above: Result Comment: The drugs N-Acetylcysteine and Metamizole may falsely depress this assay. Performed By: #### L 100.0200, L500.2900, L400.0100 #### [facility] [address] [place], [address] Urinalysis, Employeeon 07-23 BILIRUBIN URINE Negative Normal Negative [facility] Comment on above: Order Comment: CLEAN CATCH Performed By: #### L 100.0200, L500.2900, L400.0100 #### [facility] [address] [place], [address] Clarity (U) Sl. Cloudy Normal Clear [facility] Comment on above: Order Comment: CLEAN CATCH Performed By: #### L 100.0200, L500.2900, L400.0100 #### [facility] [address] [place], [address] Color (U) Yellow Normal Yellow [facility] Comment on above: Order Comment: CLEAN CATCH Performed By: #### L 100.0200, L500.2900, L400.0100 #### [facility] [address] [place], [address] GLUCOSE, UR Normal Normal Normal [facility] Comment on above: Order Comment: CLEAN CATCH Performed By: #### L 100.0200, L500.2900, L400.0100 #### [facility] [address] [place], [address] KETONE UR Negative Normal Negative [facility] Comment on above: Order Comment: CLEAN CATCH Performed By: #### L 100.0200, L500.2900, L400.0100 #### [facility] [address] [place], [address] LEUK ESTERASE 100 /ul Abnormal Negative [facility] Comment on above: Order Comment: CLEAN CATCH Performed By: #### L 100.0200, L500.2900, L400.0100 #### [facility] [address] [place], [address] Nitrite Ql (U) Negative Normal Negative [facility] Comment on above: Order Comment: CLEAN CATCH Performed By: #### L 100.0200, L500.2900, L400.0100 #### [facility] [address] [place], [address] OCCULT BLOOD-UR Negative Normal Negative [facility] Comment on above: Order Comment: CLEAN CATCH Performed By: #### L 100.0200, L500.2900, L400.0100 #### [facility] [address] [place], [address] pH UR 6.0 Normal 5.0 - 8.0 [facility] Comment on above: Order Comment: CLEAN CATCH Performed By: #### L 100.0200, L500.2900, L400.0100 #### [facility] [address] [place], [address] PROT DIPSTX 15 mg/dl Abnormal Negative [facility] Comment on above: Order Comment: CLEAN CATCH Performed By: #### L 100.0200, L500.2900, L400.0100 #### [facility] [address] [place], [address] SP.GR. DIPSTX 1.020 Normal 1.002-1.030 [facility] Comment on above: Order Comment: CLEAN CATCH Performed By: #### L 100.0200, L500.2900, L400.0100 #### [facility] [address] [place], [address] UROBILI Normal Normal Normal [facility] Comment on above: Order Comment: CLEAN CATCH Performed By: #### L 100.0200, L500.2900, L400.0100 #### [facility] [address] [place], [address] Orthopedic Visit Reporton Orthopedic Visit Report [facility] [address] [place] [address] [address] [place] [address] OFFICE VISIT Date of Service: 07/08/25 MR#: [id number] Acct: [id number] Name: KETTY MALHOTRA Guero Rep #: [id number] : 1975 Provider: Dr. Ashu st, DO Age/Sex: 49/F [place] [facility] Status: Signed Intake Vital Signs 01/07/25 18:30 Height 5 ft 4 in Intake Visit Reasons: BILATERAL SHOULDERS Chief Complaint: bilateral shoulder pain Accompanied by: Self Is patient in pain?: Yes (BL shoulders) Pain scale (1-10): 7 Allergies Iodinated Contrast Media Allergy (Mild, Verified 07/08/25 08:41) Unknown lidocaine Allergy (Mild, Verified 07/08/25 08:41) HIVES Medications ???Medication ???Instructions ???Recorded ???Confirmed ???Type norethindrone (contraceptive) 0.35 0.35 mg PO DAILY 11/30/18 History mg tablet (Kamilah) valacyclovir 500 mg tablet 500 mg PO DAILY 07/16/19 07/08/25 History (Valtrex) bupropion HCl 150 mg 24 hr tablet, 150 mg PO QAM #90 tabs 07/24/24 07/08/25 Rx extended release cholecalciferol (vitamin D3) 1,250 1,250 mcg PO QWEEK #12 caps 07/1007/08/25 Rx mcg (50,000 unit) capsule cyclobenzaprine 10 mg tablet 10 mg PO HS #90 tabs 07/24/2406/11 Rx famotidine 20 mg tablet (Pepcid) 20 mg PO DAILY #90 tabs 07/24/24 0 07/08/25 Rx hydroxyzine HCl 25 mg tablet 25 mg PO TID PRN hives #60 tabs 07/08/25 Rx loratadine 10 mg tablet (Claritin) 10 mg PO DAILY #90 tabs 07/24/24 07/08/25 Rx omeprazole 20 mg capsule,delayed 20 mg PO DAILY #90 caps 07/24/24 0 07/08/25 Rx release PFSH Medical History Perirectal abscess Ganglion cyst of volar aspect of right wrist Depression Herpes GERD (gastroesophageal reflux disease) HISTORY OF CARPAL TUNNEL NECK/BACK PAIN Severe headache Surgical History H/O tubal ligation S/P D C (status post dilation and curettage) History of esophagogastroduodenoscopy (EGD) ( 07/2019) History of History of lumbar surgery Social History Smoking Status: Never smoker alcohol intake: current alcohol intake frequency: a few times a month HPI BILATERAL SHOULDERS Details: This documentation accurately reflects the service provided and the decisions made by me, Dr. Ashu Rodriguez, DO 07/08/25 0738. Part of today???s visit was documented by Cristel Larose RN, acting as scribe. KETTY MALHOTRA is a 49 year old F here today for bilateral shoulder pain. The pain is mostly on the anterior aspect of the shoulder. She states the injections in November were helpful and she would like to proceed with them again today. She did PT in November and she reports this was helpful and she would be open to do this again. 11/21/2024 visit: here today for bilateral shoulder pain with the left being worse. She states they are constantly achy with some sharp pains. She rates her pain 7/10 today and states her last injection was on 02/28/23 on the right side were helpful until July 2024. She states it is painful to lift her arms at times. 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 Patient has bee having left shoulder pain for years. She has had injections many years ago. Her pain is worse with overhead movement or any movement behind her back. Her pain is over the top of her should and lateral arm. She denies any previous surgery or injury. She does have some perispinal pain as well that causes throbbing pain and wakes her up at night. She does have pain in multiple joints. She has a daughter with Raynaud's but does not know of any other inflammatory autoimmune conditions in her family. She has polyarthralgia. She is complaining to me of her neck thoracic spine and bilateral shoulders but she has multiple other complaints as well. Plan: Patient is here today with multiple complaints polyarthralgia bilateral shoulder pain cervical spine pain and thoracic spine pain. She is requesting to have bilateral shoulder injections she has had these in the right side in the past which have given her relief for over a year. She is having similar complaints now in the left shoulder worse with overhead activity and behind the back I suspect is bursitis we did have x-rays of both shoulders today which showed some right sided AC joint arthritis otherwise fairly unremarkable. At this point I would recommend physical therapy for bilateral shoulder complaints as well as cervical pain and thoracic spine pain. In addition I did give her the name of Dr. Guthrie as she is questioning inflammatory condition. In addition she has responded well to meloxicam in the past and I will provide her another prescription for this 30 days with a refill (more content not included)... Normal [facility] Inital Evaluation (1) - PTon 12-10-2024 Inital Evaluation (1) - PT [facility] Physical Therapy [facility] [address] [place] [address] / REHABILITATION SERVICES INITIAL EVALUATION MR#: [id number] Acct: [id number] Name: KETTY MALHOTRA Rep #: [id number] : 1975 49 From: Chris Hernandez PT, ATC Referring Dr.: Dr. Ashu Rodriguez DO Status: R EG RCR [facility] S[facility]Y INSURANCE Patient's Visit Information Visit Information Visit Information: KETTY MALHOTRA is a 49 year old F referred to Physical Therapy by Dr. Ashu Rodriguez DO with a diagnosis of Cervicalgia. Date of Evaluation: 12/10/24 Physical Therapist: Chris Hernandez, PT, ATC Visit Plan Frequency: 2x /Week Duration: 4-6 Weeks Plan: Assess benefit of C-Tx. Add DTR, c/s mobs, and scap stab ex's Subjective Subjective: Pt reports she has had neck pain intermittently for many years. Pt notes she has had PT in the past which included massage and DN which really helped. Pt reports she has had recent injections into B shoulders secondary to bursitis that has really helped. Pt reports her L hand will go numb on occasion in her ring and little finger. Pt is R hand dominant. Pt also complains of pain that is in her L intrascapular region which can be severe at times and limit her sleep. Pt reports she also gets headaches that originate in the base of her skull and radiates to her head. 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 Pt reports no sleep difficulty at this time as long as she takes pain meds. Pt reports she is limited with all IADL's, but works through the pain to get them done. 1/10 pain while sitting here at rest, 10/10 pain at worst. Pain Neck pain: Pain Intensity (Out of 10): 1 Pain Intensity Range: 10 Objective Objective: Neuro: B UE sensation is WNL to light touch. B bicipital reflex= 2/3 Palpation: Pt has significant muscle guarding throughout cervical spin and upper trap regions. No deformity noted. MMT: B UE's are strong and equal throughout ROM: Pt is minimally limited with retraction and extension. All other motions are WNL Repeated movements: RPIS 10x3 increased pain at base of skull. RRIS radiated sx's into interscap region Special tests: Pos apley compression and distraction tests Balance/Special Test Scores Oswestry Neck Score: 13 Goals Goal 1:: Decrease neck pain x 50% to aid with sleep Goal Time Frame: 4-6 Weeks Goal 2:: Decrease the frequency and intensity of L UE radiculopathy x 50% to aid with IADL's Goal Time Frame: 4-6 Weeks Goal 3:: Decrease the frequency of headaches x 50% to aid with sleep Goal Time Frame: 4-6 Weeks Goal 4:: I with HEP Goal Time Frame: 4-6 Weeks Rehabilitation Potential Physical Therapy Diagnosis: Pt has L UE radiculopathy, Headaches, and Neck pain secondary to degenerative changes of the C/S Rehabilitation Potential: Good Anticipated Interventions Patient/Client Instruction: Educate patient on: Condition and Plan of Care For the Purpose of:: To improve self management Therapeutic Exercise to Include: Strength training, Endurance training, Body mechanics, Postural training and Scapular Strength/Stabilization For the Purpose of:: To decrease pain, To increase ROM and To improve muscle performance and motor function Manual Therapy Techniques to Include: Mobilization and Soft tissue mobilization For the Purpose of:: To decrease pain and To improve muscle performance and motor function Intermittent cervical traction: Yes For the Purpose of:: To decrease pain and To improve muscle performance and motor function Text: Thank you for the opportunity to evaluate your patient. For Medicare and Medicare HMO plans, please review the plan of care and approve it. It will need to be FAXED BACK to us at [phone] for Medicare purposes. For Medicare only, by signing this I certify the plan of care. Please let me know if there are questions or concerns regarding this plan of care. Physician Signature: ___Date: 12/10/24 1359 CC: ML Story; Dr. Ashu Rodriguez DO [facility] Signed Normal [facility] Orthopedic Visit Reporton Orthopedic Visit Report [facility] [address] [place] [address] [place] [address] OFFICE VISIT Date of Service: 11/21/24 MR#: [id number] Acct: [id number] Name: KETTY MALHOTRA Rep #: [id number] : 1975 Provider: Dr. Ashu st, DO Age/Sex: 49/F [place] [facility] Status: Signed Intake Vital Signs 07/24/24 18:54 11/20/24 14:53 Height 5 ft 4 in 5 ft 4 in Intake Visit Reasons: BL SHOULDER Chief Complaint: bilateral shoulder pain Is patient in pain?: Yes (bilateral shoulders) Allergies Iodinated Contrast Media Allergy (Mild, Verified 02/27/24 10:06) Unknown lidocaine Allergy (Mild, Verified 02/27/24 10:06) HIVES Medications ???Medication ???Instructions ???Recorded ???Confirmed ???Type norethindrone (contraceptive) 0.35 0.35 mg PO DAILY 11/30/18 History mg tablet (Kamilah) valacyclovir 500 mg tablet 500 mg PO DAILY 07/16/19 07/24/24 History (Valtrex) fluconazole 150 mg tablet 150 mg PO Q3D 2 doses #2 tabs 01/3107/24/24 Rx bupropion HCl 150 mg 24 hr tablet, 150 mg PO QAM #90 tabs 07/24/24 07/24/24 Rx extended release cholecalciferol (vitamin D3) 1,250 1,250 mcg PO QWEEK #12 caps 07/1007/24/24 Rx mcg (50,000 unit) capsule cyclobenzaprine 10 mg tablet 10 mg PO HS #90 tabs 07/24/2407/10 Rx famotidine 20 mg tablet (Pepcid) 20 mg PO DAILY #90 tabs 07/24/24 1 Rx hydroxyzine HCl 25 mg tablet 25 mg PO TID PRN hives #60 tabs 07/24/24 Rx loratadine 10 mg tablet (Claritin) 10 mg PO DAILY #90 tabs 07/24/24 07/24/24 Rx omeprazole 20 mg capsule,delayed 20 mg PO DAILY #90 caps 07/24/24 1 Rx release tramadol 50 mg tablet 50 mg PO BID PRN pain #60 tabs 07/24/24 Rx meloxicam 15 mg tablet 15 mg PO DAILY #30 tabs 11/21/24 0 11/21/24 Rx PFSH Medical History Perirectal abscess Ganglion cyst of volar aspect of right wrist Depression Herpes GERD (gastroesophageal reflux disease) HISTORY OF CARPAL TUNNEL NECK/BACK PAIN Severe headache Surgical History H/O tubal ligation S/P D C (status post dilation and curettage) History of esophagogastroduodenoscopy (EGD) ( 07/2019) History of History of lumbar surgery Social History Smoking Status: Never smoker alcohol intake: current alcohol intake frequency: a few times a month HPI BL SHOULDER Details: This documentation accurately reflects the service provided and the decisions made by me, Dr. Ashu Rodriguez, DO 11/21/24 0751. Part of today???s visit was documented by Mary CASTRO, acting as scribe. KETTY MALHOTRA is a 49 year old F here today for bilateral shoulder pain with the left being worse. She states they are constantly achy with some sharp pains. She rates her pain 7/10 today and states her last injection was on 02/28/23 on the right side were helpful until July 2024. She states it is painful to lift her arms at times. 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 Patient has bee having left shoulder pain for years. She has had injections many years ago. Her pain is worse with overhead movement or any movement behind her back. Her pain is over the top of her should and lateral arm. She denies any previous surgery or injury. She does have some perispinal pain as well that causes throbbing pain and wakes her up at night. She does have pain in multiple joints. She has a daughter with Raynaud's but does not know of any other inflammatory autoimmune conditions in her family. She has polyarthralgia. She is complaining to me of her neck thoracic spine and bilateral shoulders but she has multiple other complaints as well. 02/29/2024 visit:KETTY MALHOTRA is a 48 year old F here today for right shoulder. I last saw her for this problem 10/20/2022 and she received a subacromial injection and a biceps tendon sheath injection she did have an MRI of her shoulder (Supraspinatus infraspinatus tendinosis without rotator cuff tear. Tendinosis of long head biceps tendon. Subacromial bursitis. and humerus (normal). Patient rates her pain a 7/10 today. Patient states the injection gave her relief for a long time. Patient denies any recent falls or injuries to the right shoulder that made the pain come back. Patient states she goes to [employer] on her own to work on back exercises and she does try some stuff for her shoulder but she states she has trouble with some arm exercises and lifting. Patient states she does take Ibuprofen for the pain when she needs. She is prescribed Tramadol for her back but she doesn't take it on a regular basis. Patient states the pain in the shoulder is pretty much the (more content not included)... Normal [facility] Shoulder min 2 Viewson 11-20 Shoulder min 2 Views [facility] Services [address] [place] [address] Shoulder min 2 Views MR#: [id number] Acct: [id number] Name: KETTY MALHOTRA Rep #: [id number] : 1975 F 49 From: Jean Claude Keen PCP: Lesia Story NP-Vy Status: REG CLI Study: Shoulder min 2 Views Date of Exam: 11/20/24 Exam# [id number] Ordering Dr: Ashu Rodriguez DO PROCEDURE: SHOULDER MIN 2 VIEWS REASON FOR EXAM: Bilateral shoulder pain. TECHNIQUE: Four view right shoulder series five view left shoulder series (combined dictation). COMPARISON: Right shoulder study of 01/14/2022. RAD/Shoulder min 2 Views IMPRESSION: Right shoulder: [id number] right acromioclavicular joint degenerative changes are noted. Mild degenerative changes are seen about the right humeral head greater tuberosity. The right glenohumeral joint demonstrates minimal degenerative changes, without apparent joint narrowing. No fracture or dislocation is seen. Left shoulder: Satq-[id number] left acromioclavicular joint degenerative changes are seen. Minimal left glenohumeral joint degenerative changes are noted, without apparent joint narrowing. No fracture or dislocation is evident. Reading Location: [id number] CC: ML Story; Dr. Ashu Rodriguez DO Service Cashier: Signed Normal [facility] Shoulder min 2 Views [facility] Imaging Services [address] [place] [address] [id number] Shoulder min 2 Views MR#: [id number] Acct: [id number] Name: KETTY MALHOTRA Rep #: [id number] : 1975 F 49 From: Jean Claude Keen PCP: ML Woodard Status: REG CLI Study: Shoulder min 2 Views Date of Exam: 11/20/24 Exam# [id number] Ordering Dr: Ashu Rodriguez DO PROCEDURE: SHOULDER MIN 2 VIEWS REASON FOR EXAM: Bilateral shoulder pain. TECHNIQUE: Four view right shoulder series five view left shoulder series (combined dictation). COMPARISON: Right shoulder study of 01/14/2022. RAD/Shoulder min 2 Views IMPRESSION: Right shoulder: Nxeu-[id number] right acromioclavicular joint degenerative changes are noted. Mild degenerative changes are seen about the right humeral head greater tuberosity. The right glenohumeral joint demonstrates minimal degenerative changes, without apparent joint narrowing. No fracture or dislocation is seen. Left shoulder: Owvz-za-ciwjnvlv left acromioclavicular joint degenerative changes are seen. Minimal left glenohumeral joint degenerative changes are noted, without apparent joint narrowing. No fracture or dislocation is evident. Reading Location: [facility] CC: ML Story; Dr. Ashu Rodriguez DO Service Cashier: Signed Normal [facility] Absolute lymphocyte countOrd ered By: HEALTH ASSESSMENT on 07-29-2023 Lymphocytes Auto (Unsp spec) [#/Vol] 2.31 10*3/uL 0.83-4.51 [facility] Absolute reticulocyte countO rdered By: HEALTH ASSESSMENT on 07-29-2023 Reticulocytes (Bld) [#/Vol] 0.00 10*3/uL 0-5 [facility] Basophil percentageOrdered B y: HEALTH ASSESSMENT on 07-29-2023 Basophil percentage 3.7 mg/dL 2.5-4.9 [facility] Bilirubin [Mass/Vol] 1.40 mg/dL 0.20-1.00 [facility] Comment on above: For patients on eltr ombopag therapy, use of Dimension [place] TBIL is not recommended. Chloride [Moles/Vol] 113 mmol/L 98-107 [facility] Cholesterol [Mass/Vol] 148 mg/dL <200 [facility] Comment on above: <200 mg/dL Desirable 200-240 mg/dL Borderline >240 mg/dL High Risk Glucose [Mass/Vol] 110 mg/dL 74-106 [facility] Comment on above: Fasting Glucose resu lt from 100 to 125 mg/dL suggests IMPAIRED HOMEOSTASIS per A.D.A. criteria. LDH [Catalytic activity/Vol] 97 U/L 84-246 [facility] Neutrophils (Bld) [#/Vol] 2.6 10*3/uL 2.0-7.7 [facility] Potassium [Moles/Vol] 3.9 mmol/L 3.5-5.1 [facility] Protein [Mass/Vol] 6.6 g/dL 6.4-8.2 [facility] Sodium [Moles/Vol] 142 mmol/L 136-145 [facility] Triglyceride [Mass/Vol] 83 mg/dL <199 [facility] Comment on above: The drugs N-Acetylcy steine and Metamizole may falsely depress this assay.Serum Triglycerides Reference Interval Normal <150 mg/dL Borderline high 150 - 199 mg/dL High 200 - 499 mg/dL Very High > or = 500 mg/dL WBC (Bld) [#/Vol] 6.0 10*3/uL 4.4-11.0 [facility] Blood erythrocytes count (nu mber/volume)Ordered By: HEALTH ASSESSMENT on 07-29-2023 RBC (Bld) [#/Vol] 4.50 10*6/uL 4.2-5.4 [facility] Blood hemoglobin measurement (mass/volume)Ordered By: HEALTH ASSESSMENT on 07-29-2023 Hemoglobin (Bld) [Mass/Vol] 14.7 g/dL 12.0-15.0 [facility] Blood platelet mean volumeOr dered By: HEALTH ASSESSMENT on 07-29-2023 Platelet mean volume (Bld) [Entitic vol] 10.7 fL 6.2-12.0 [facility] Determination of erythrocyte mean corpuscular volume (MCV)Ordered By: HEALTH ASSESSMENT on 07-29-2023 MCV (RBC) [Entitic vol] 98.0 fL 81-99 [facility] Direct bilirubinOrdered By: HEALTH ASSESSMENT on 07-29-2023 Bilirubin.direct [Mass/Vol] 0.33 mg/dL 0.00-0.30 [facility] Hematocrit Auto (Bld) [Volum e fraction]Ordered By: HEALTH ASSESSMENT on 07-29-2023 Hematocrit (Bld) [Volume fraction] 44.1 % 37-47 [facility] Laboratory - Chemistry and C hemistry - challengeOrdered By: HEALTH ASSESSMENT on 07-29-2023 ALP [Catalytic activity/Vol] 61 U/L 45-117 [facility] ALT [Catalytic activity/Vol] 21 U/L 13-56 [facility] Cholesterol.total/Ch olesterol in HDL [Mass ratio] 2.70 {ratio} [facility] CO2 [Moles/Vol] 24.0 mmol/L 21.0-32.0 [facility] Globulin (S) [Mass/Vol] 2.9 g/dL 2.2-4.2 [facility] Urea nitrogen/Creatinine [Mass ratio] 23.6 mg/mg 07-29 [facility] Laboratory - Hematology and Cell countsOrdered By: HEALTH ASSESSMENT on 07-29-2023 Erythrocyte distribution width (RBC) [Entitic vol] 43.4 fL 35.1-43.9 [facility] Erythrocyte distribution width (RBC) [Ratio] 12.0 % 11.6-14.6 [facility] MCH (RBC) [Entitic mass] 32.7 pg 27.0-32.0 [facility] Nucleated RBC/100 WBC (Bld) [Ratio] 0 % 0-5 [facility] MCHC Auto (RBC) [Mass/Vol]Or dered By: HEALTH ASSESSMENT on 07-29-2023 MCHC (RBC) [Mass/Vol] 33.3 g/dL 32-36 [facility] No Panel InformationOrdered By: HEALTH ASSESSMENT on 07-29-2023 Estimated GFR (MDRD) Amer 97 mL/min >60 [facility] Comment on above: GFR Calc Estimated GFR (MDRD) Non-Af Amer 80 mL/min >60 [facility] Comment on above: Non- GFR Calc Platelets bldOrdered By: [facility] ASSESSMENT on 07-29-2023 Platelets (Bld) [#/Vol] 300 10*3/uL 150-450 [facility]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 18:23-0400 Body height 162.56 cm DATAWAREHOUSE DEVELOPER-C Lesia Story DATAWAREHOUSE DEVELOPER Work Phone: [facility] Work Phone: 01-26-2022 18:23-0400 Body mass index (BMI) [Ratio] 32.5 kg/m2 DATAWAREHOUSE DEVELOPER-C Lesia Story DATAWAREHOUSE DEVELOPER Work Phone: [facility] Work Phone: 01-26-2022 18:23-0400 Body temperature 97.7 [degF] DATAWAREHOUSE DEVELOPER-C Lesia Story DATAWAREHOUSE DEVELOPER Work Phone: [facility] Work Phone: 01-26-2022 18:23-0400 Body weight 86.18 kg DATAWAREHOUSE DEVELOPER-C Lesia Story DATAWAREHOUSE DEVELOPER Work Phone: [facility] Work Phone: 01-26-2022 18:23-0400 Diastolic blood pressure 70 mm[Hg] DATAWAREHOUSE DEVELOPER-C Lesia Story DATAWAREHOUSE DEVELOPER Work Phone: [facility] Work Phone: 01-26-2022 18:23-0400 Heart rate 82 /min DATAWAREHOUSE DEVELOPER-C Lesia Story DATAWAREHOUSE DEVELOPER Work Phone: [facility] Work Phone: 01-26-2022 18:23-0400 Respiratory rate 18 /min DATAWAREHOUSE DEVELOPER-C Lesia Story DATAWAREHOUSE DEVELOPER Work Phone: [facility] Work Phone: 01-26-2022 18:23-0400 SaO2% (BldA) [Mass fraction] 98 % DATAWAREHOUSE DEVELOPER-C Lesia Story DATAWAREHOUSE DEVELOPER Work Phone: [facility] Work Phone: 01-26-2022 18:23-0400 Systolic blood pressure 122 mm[Hg] DATAWAREHOUSE DEVELOPER-C Lesia Story DATAWAREHOUSE DEVELOPER Work Phone: [facility] Work Phone: 01-21-2022 15:11-0400 Body mass index (BMI) [Ratio] 33 kg/m2 DATAWAREHOUSE DEVELOPER-C Lesia Story DATAWAREHOUSE DEVELOPER Work Phone: [facility] Work Phone: 01-21-2022 15:11-0400 Body weight 87.14 kg DATAWAREHOUSE DEVELOPER-C Lesiaguero GoldbergStory DATAWAREHOUSE DEVELOPER Work Phone: [facility] Work Phone: 01-21-2022 15:11-0400 Body mass index (BMI) [Ratio] 33 kg/m2 DATAWAREHOUSE DEVELOPER-C Lesia Story DATAWAREHOUSE DEVELOPER Work Phone: [facility] Work Phone: 01-21-2022 15:11-0400 Body weight 87.14 kg DATAWAREHOUSE DEVELOPER-C Lesia Jez DATAWAREHOUSE DEVELOPER Work Phone: [facility] Work Phone: 01-12-2022 18:53-0400 Body mass index (BMI) [Ratio] 32.5 kg/m2 DATAWAREHOUSE DEVELOPER-C Lesia Story DATAWAREHOUSE DEVELOPER Work Phone: [facility] Work Phone: 01-12-2022 18:53-0400 Body temperature 97.9 [degF] DATAWAREHOUSE DEVELOPER-C Lesia Goldbergson DATAWAREHOUSE DEVELOPER Work Phone: [facility] Work Phone: 01-12-2022 18:53-0400 Body weight 86.18 kg DATAWAREHOUSE DEVELOPER-C Lesia Story DATAWAREHOUSE DEVELOPER Work Phone: [facility] Work Phone: 01-12-2022 18:53-0400 Diastolic blood pressure 70 mm[Hg] DATAWAREHOUSE DEVELOPER-C Lesia Goldbergson DATAWAREHOUSE DEVELOPER Work Phone: [facility] Work Phone: 01-12-2022 18:53-0400 Heart rate 93 /min DATAWAREHOUSE DEVELOPER-C Lesai Goldbergson DATAWAREHOUSE DEVELOPER Work Phone: [facility] Work Phone: 01-12-2022 18:53-0400 Respiratory rate 18 /min DATAWAREHOUSE DEVELOPER-Vy Story DATAWAREHOUSE DEVELOPER Work Phone: [facility] Work Phone: 01-12-2022 18:53-0400 SaO2% (BldA) [Mass fraction] 98 % DATAWAREHOUSE DEVELOPER-C Lesia Story DATAWAREHOUSE DEVELOPER Work Phone: [facility] Work Phone: 01-12-2022 18:53-0400 Systolic blood pressure 100 mm[Hg] DATAWAREHOUSE DEVELOPER-C Lesia Story DATAWAREHOUSE DEVELOPER Work Phone: [facility] Work Phone: 01-12-2022 18:53-0400 Body height 162.56 cm [facility] Work Phone: 01-12-2022 18:53-0400 Body mass index (BMI) [Ratio] 32.5 kg/m2 [facility] Work Phone: 01-12-2022 18:53-0400 Body temperature 97.9 [degF] [facility] Work Phone: 01-12-2022 18:53-0400 Body weight 86.18 kg [facility] Work Phone: 01-12-2022 18:53-0400 Diastolic blood pressure 70 mm[Hg] [facility] Work Phone: 01-12-2022 18:53-0400 Heart rate 93 /min [facility] Work Phone: 01-12-2022 18:53-0400 Respiratory rate 18 /min [facility] Work Phone: 01-12-2022 18:53-0400 SaO2% (BldA) [Mass fraction] 98 % [facility] Work Phone: 01-12-2022 18:53-0400 Systolic blood pressure 100 mm[Hg] [facility] Work Phone: Encounters Encounter Date Encounter Type Care Provider Facility Start: 07-23-2025 ambulatory Health Risk Assessment Facility:[facility] Start: 07-08-2025 End: 07-08-[address] Ashu Rodriguez DO -[facility] Work Phone: Start: 07-08-2025 End: 07-08-2025 ambulatory Lesia Story DATAWAREHOUSE DEVELOPER-C Work Phone: -[facility] Start: 03-19-2025 End: 03-19-2025 Refill Alejandra RAGSDALE-C Work Phone: [facility] Comment on above: Refill Request Start: 01-10-2025 End: 01-10-2025 ambulatory Lesia Story DATAWAREHOUSE DEVELOPER-C Work Phone: -Physical Therapy Start: 01-10-2025 End: 01-10-[address] Ashu Rodriguez DO -Physical Therapy Work Phone: Start: 11-21-2024 End: 11-21-2024 ambulatory Lesia Story DATAWAREHOUSE DEVELOPER [place] [place]: 11-20-2024 End: 11-20-2024 ambulatory Ashu Rodriguez Facility:[facility] Start: 11-18-2023 Refill Alejandra RAGSDALE-C Work Phone: [facility] Comment on above: Refill Request Start: 10-25-2023 End: 10-25-2023 ambulatory [facility] Work Phone: Start: 10-25-2023 End: 10-25-2023 Patient encounter procedure [facility]-Outpatient Bone Densitometry Work Phone: Start: 09-19-2023 End: 09-19-2023 ambulatory [facility] Work Phone: Start: 09-19-2023 End: 09-19-2023 Patient encounter procedure [facility]-MRI - [facility] Work Phone: Start: 08-18-2023 End: 08-18-2023 ambulatory [facility] Work Phone: Start: 08-18-2023 End: 08-18-2023 Discharged Recurring [facility]-Physical Therapy Work Phone: Start: 08-18-2023 Registered Recurring [facility] Work Phone: Start: 07-29-2023 Registered [facility] Start: 03-17-2023 End: 03-17-2023 ambulatory [facility] Work Phone: Start: 03-17-2023 End: 03-17-2023 Patient encounter procedure [facility]-Outpatient Breast Imaging Start: 03-14-2023 End: 03-14-2023 ambulatory [facility] Work Phone: Start: 03-14-2023 End: 03-14-2023 Patient encounter procedure [facility]-Radiology, [facility] Start: 02-28-2023 End: 02-28-2023 ambulatory [facility] Work Phone: Start: 02-28-2023 End: 02-28-2023 Patient encounter procedure [facility]-Radiology, [facility] Start: 12-23-2022 End: 12-23-2022 ambulatory DATAWAREHOUSE DEVELOPERJuana Story DATAWAREHOUSE DEVELOPER Work Phone: [facility] Work Phone: Start: 12-23-2022 End: 12-23-2022 Patient encounter procedure ML Story DATAWAREHOUSE DEVELOPER Work Phone: [facility]-Ultrasound, [facility] Start: 12-22-2022 End: 12-22-2022 Patient encounter procedure Alejandra Arambula PA-C Work Phone: [facility] Comment on above: Pelvic pain in femal e (Primary Dx); Vaginal discharge; Acute vaginitis; Abdominal bloating; Cyst of left ovary Start: 10-20-2022 End: 10-20-2022 Patient encounter procedure ML Story DATAWAREHOUSE DEVELOPER Work Phone: [facility] Start: 09-27-2022 ambulatory Alejandra Caleb Arambula PA-C Work Phone: [facility] Comment on above: [place] Start: 09-01-2022 End: 09-01-2022 Patient encounter procedure Alejandra Taylor Arambula PA-C Work Phone: [facility] Comment on above: Women's annual routi ne gynecological examination (Primary Dx); Screening for malignant neoplasm of cervix; Breast cancer screening by mammogram; Encounter for colorectal cancer screening; Perimenopausal; Irregular bleeding; Uterine leiomyoma, unspecified location; Hormone disturbance; Genital herpes simplex, unspecified site Start: 08-11-2022 Refill Alejandra Ansarijenaro Arambula PA-C Work Phone: [facility] Comment on above: Refill Request Start: 08-06-2022 End: 08-06-2022 ambulatory DATAWAREHOUSE DEVELOPER-Vy Story DATAWAREHOUSE DEVELOPER Work Phone: [facility] Work Phone: Start: 08-06-2022 End: 08-06-2022 Patient encounter procedure DATAWAREHOUSE DEVELOPER-Vy Story DATAWAREHOUSE DEVELOPER Work Phone: [facility]-Laboratory Start: 07-28-2022 Registered [facility] DATAWAREHOUSE DEVELOPER-Vy Story DATAWAREHOUSE DEVELOPER Work Phone: [facility] Start: 06-10-2022 Registered Recurring DATAWAREHOUSE DEVELOPER-Vy Story DATAWAREHOUSE DEVELOPER Work Phone: [facility]-Physical Therapy Start: 05-03-2022 End: 05-03-2022 Patient encounter procedure DATAWAREHOUSE DEVELOPER-Vy Story DATAWAREHOUSE DEVELOPER Work Phone: [facility] Start: 04-19-2022 End: 04-19-2022 Patient encounter procedure DATAWAREHOUSE DEVELOPER-Vy Story DATAWAREHOUSE DEVELOPER Work Phone: [facility]-MRI - WC Start: 03-16-2022 End: 03-16-2022 Patient encounter procedure DATAWAREHOUSE DEVELOPER-Vy Story DATAWAREHOUSE DEVELOPER Work Phone: [facility]-Radiology, [facility] Start: 03-12-2022 End: 03-12-2022 Patient encounter procedure DATAWAREHOUSE DEVELOPER-Vy Story DATAWAREHOUSE DEVELOPER Work Phone: [facility] Start: 03-03-2022 Registered Recurring DATAWAREHOUSE DEVELOPER-Vy Story DATAWAREHOUSE DEVELOPER Work Phone: [facility]-Physical Therapy Start: 02-17-2022 End: 02-17-2022 Patient encounter procedure DATAWAREHOUSE DEVELOPER-Vy Story DATAWAREHOUSE DEVELOPER Work Phone: [facility] Start: 01-28-2022 End: 01-28-2022 Patient encounter procedure DATAWAREHOUSE DEVELOPER-Vy Story DATAWAREHOUSE DEVELOPER Work Phone: [facility]-MRI - [facility] Start: 01-21-2022 End: 01-21-2022 Patient encounter procedure DATAWAREHOUSE DEVELOPER-Vy Story DATAWAREHOUSE DEVELOPER Work Phone: [facility] Start: 01-14-2022 End: 01-14-2022 [facility] Start: 07-28-2021 Patient encounter status [facility] Start: 12-01-2018 End: 12-01-2018 Patient encounter status Alejandra Arambula PA-C Work Phone: [facility] Start: 01-17-2018 Ambulatory [facility] Start: 04-06-2017 Ambulatory [facility] Facility: [facility] Procedures Date Procedure Procedure Detail Performing Clinician Start: 10-25-2023 Dual energy X-ray absorptiometry Start: 09-19-2023 MRI of lumbar spine Start: 03-17-2023 Screening mammography Start: 03-14-2023 Plain x-ray of pelvi s and lower extremity Start: 02-28-2023 X-ray of cervical spine Start: 02-28-2023 X-ray of lumbosacral spine Start: 12-23-2022 Pelvic echography DATAWAREHOUSE DEVELOPER-Vy Story DATAWAREHOUSE DEVELOPER Work Phone: Start: 04-19-2022 MRI of upper limb DATAWAREHOUSE DEVELOPER-Vy Story DATAWAREHOUSE DEVELOPER Work Phone: Start: 03-16-2022 Plain x-ray of humerus DATAWAREHOUSE DEVELOPER-C Lesia Story DATAWAREHOUSE DEVELOPER Work Phone: Start: 01-28-2022 MRI of joint of lowe r extremity DATAWAREHOUSE DEVELOPER-C Lesia Story DATAWAREHOUSE DEVELOPER Work Phone: Start: 01-14-2022 Plain X-ray of shoulder Start: 03-21-2018 Lipid 1996 panel - S papo or Plasma Alejandra Arambula PA-C Work Phone: Start: 01-17-2018 Mammography Alejandra ramirez PA-C Work Phone: Plan of Treatment Date Care Activity Detail Author Start: 07-02-2029 Urine microalbumin profile [facility] Start: 10-24-2028 Screening for malign ant neoplasm of cervix [facility] Start: 09-01-2027 PAP TESTING PAP TESTING [facility] Start: 07-01-2026 PAP TESTING PAP TESTING [facility] Start: 09-01-2025 COLOGUARD (FIT-DNA) COLOGUARD (FIT-D NA) [facility] Start: 09-01-2025 COLORECTAL CANCER SCREENING COLORECTAL CANCER SCREENING [facility] Start: 09-01-2025 Screening for malign ant neoplasm of colon [facility] Start: 06-10-2025 Influenza vaccination Influenz a Vaccine (Season Ended) [facility] Start: 06-10-2024 Covid-19 Vaccine ( season) Covid-19 Vaccine ( season) [facility] Start: 03-17-2024 Screening for malign ant neoplasm of breast Mammogram Screening [facility] Start: 12-01-2023 HPV TESTING HPV TESTING [facility] Start: 12-01-2023 Screening for malign ant neoplasm of cervix HPV Testing [facility] Start: 2023 Pneumococcal Vaccine : 50+ (1 of 1 - PCV) Pneumococcal Vaccine: 50+ (1 of 1 - PCV) [facility] Start: 2023 Shingrix Vaccine (1 of 2) Shingrix Vaccine (1 of 2) [facility] Start: 06-10-2023 Influenza vaccination Influenza Vacc ine (#1) [facility] Start: 04-08-2023 Influenza vaccination INFLUENZA (#1) [facility] Comment on above: Postponed from 06/10 (Declined at this time) Start: 03-21-2023 Lipid panel Lipid Screening [facility] Start: 03-21-2023 LIPID SCREEN LIPID SCREEN [facility] Start: 02-23-2023 Patient referral [facility] Work Phone: Start: 12-22-2022 End: 02-21-2023 Cancer Ag 125 [Units/volume] in Serum or Plasma CA 125 BLD Lab Routine Pelvic pain in female Abdominal bloating Cyst of left ovary Expected: 12/22/2022, Expires: 02/21/2023 [employer] Phone: Comment on above: Expected: 12/22/2022 , Expires: 02/21/2023 Start: 12-22-2022 End: 02-21-2023 CULTURE, AEROBIC BACTERIA CULTURE, AEROBIC BACTERIA Microbiology Routine Vaginal discharge Acute vaginitis Expected: 12/22/2022, Expires: 02/21/2023 [employer] Phone: Comment on above: Expected: 12/22/2022 , Expires: 02/21/2023 Start: 12-22-2022 End: 02-21-2023 Fungus identified in Unspecified specimen by Culture FUNGAL CULTURE Microbiology Routine Vaginal discharge Acute vaginitis Expected: 12/22/2022, Expires: 02/21/2023 [email or web address] Phone: Comment on above: Expected: 12/22/2022 , Expires: 02/21/2023 Start: 06-10-2022 Influenza vaccination INFLUENZA (#1) [facility] Start: 03-21-2021 [facility] Start: 03-21-2021 Diabetes Screening Diabetes Screenin g [facility] Start: 01-17-2019 Mammography MAMMOGRAM [facility] Start: 2018 COLOGUARD (FIT-DNA) COLOGUARD (FIT-D NA) [facility] Start: 2018 Colonoscopy COLONOSCOPY [facility] Start: 2018 COLORECTAL CANCER SCREENING COLORECTAL CANCER SCREENING [facility] Start: [address] COLONOGRAPHY [facility] Start: 2018 FECAL OCCULT BLOOD FECAL OCCULT BLOO D [facility] Start: 2018 Screening for malign ant neoplasm of colon [facility] Start: 2018 SIGMOIDOSCOPY SIGMOIDOSCOPY [facility] Start: 1992 Hepatitis B Vaccine (1 of 3 - 19+ 3-dose series) Hepatitis B Vaccine (1 of 3 - 19+ 3-dose series) [facility] Start: 1991 HEPATITIS C SCREENING HEPATITIS C [facility] Start: 1991 Hepatitis C screening Hepatitis C [facility] Start: 1991 HIV SCREENING HIV SCREENING [facility] Start: 1991 HIV screening HIV Screening [facility] Start: 03-22-1974 COVID-19 VACCINE (#1) COVID-19 VACCI NE (#1) [facility] Start: 1973 HEPATITIS B (1 of 3 - 3-dose series) HEPATITIS B (1 of 3 - 3-dose series) [facility] Start: 1973 Hepatitis B Vaccine (1 of 3 - 3-dose series) Hepatitis B Vaccine (1 of 3 - 3-dose series) [facility] PAP REFLEX HPV MRNA WHEN ASCUS PAP REFLEX HPV MRNA WHEN ASCUS Lab Routine Women's annual routine gynecological examination Screening for malignant neoplasm of cervix Ordered: 09/01/2022 [employer] Work Phone: Comment on above: Ordered: 09/01/2022 Patient referral [facility] Work Phone: Screening mammography [facility] End: 10-01-2023 Screening mammography bi 2-view breast inc cad MALKA SCREENING Radiology Routine Breast cancer screening by mammogram 1 Occurrences starting 09/01/2022 until 10/01/2023 [employer] Phone: Comment on above: 1 Occurrences starti ng 09/01/2022 until 10/01/2023 End: 01-21-2024 Us transvaginal US FEMALE PELVIS TRANSVAG Radiology Routine Pelvic pain in female Cyst of left ovary 1 Occurrences starting 12/22/2022 until 01/21/2024 [employer] Work Phone: Comment on above: 1 Occurrences starti ng 12/22/2022 until 01/21/2024 [facility] Immunizations Immunization Date Immunization Notes Care Provider Shawn rodarte 06-27-2020 influenza, injectabl e, quadrivalent, contains preservative Alejandra Arambula PA-C Work Phone: [facility] 06-27-2020 influenza virus vacc ine, unspecified formulation Alejandra Arambula PA-C Work Phone: [facility] 07-02-2019 influenza, injectabl e, quadrivalent, contains preservative Alejandra Arambula PA-C Work Phone: [facility] 07-02-2019 tetanus toxoid, redu sherry diphtheria toxoid, and acellular pertussis vaccine, adsorbed Alejandra Arambula PA-C Work Phone: [facility] 06-26-2018 influenza, injectabl e, quadrivalent, contains preservative Alejandra Arambula PA-C Work Phone: [facility] 06-05-2017 influenza, injectabl e, quadrivalent, preservative free Alejandra Arambula PA-C Work Phone: [facility] 07-12-2016 influenza, injectabl e, quadrivalent, preservative free Alejandra Arambula PA-C Work Phone: [facility] 11-25-2015 influenza, injectabl e, quadrivalent, preservative free Alejandra Arambula PA-C Work Phone: [facility] 07-02-2013 influenza virus vacc ine, split virus (incl. purified surface antigen) Alejandra Arambula PA-C Work Phone: [facility] 08-11-2012 influenza virus vacc ine, split virus (incl. purified surface antigen) Alejandra Arambula PA-C Work Phone: [facility] 03-20-2009 tetanus toxoid, redu sherry diphtheria toxoid, and acellular pertussis vaccine, adsorbed Alejandra Arambula PA-C Work Phone: [facility] Payers Date Payer Category Payer Self-pay [id number] 2024 Unknown [id number] 2019 [id number] Unknown [id number] Unknown [id number] Unknown [id number] Unknown [id number] Unknown [id number] Social History Date Type Detail Facility Start: 08-17-2019 End: 10-20-2022 Tobacco smoking status [facility] Unknown if ever smoked [facility] Start: 1975 Sex Assigned At Female [facility] Start: 06-19-2016 End: 12-22-2022 Tobacco smoking status UTIS Ex-smoker [facility] History of tobacco use Current smoker [facility] Start: 06-19-2016 End: 12-22-2022 Tobacco use and exposure Smokeless tobacco non-user [facility] Start: 07-01-2021 End: 10-24-2023 Alcohol intake Current drinker of alcohol (finding) [facility] Start: 06-19-2016 Alcohol Comment weekly [facility] Start: 1975 Sex Assigned At Not on file [facility] Start: 08-22-2022 End: 09-01-2022 Exposure to SARS-CoV-2 (event) Not sure [facility] Start: 09-15-2020 End: 10-24-2023 History of Social function [facility] Work Phone: Start: 09-15-2020 End: 10-24-2023 Tobacco use panel [facility] Work Phone: Adult Depression Screening Assessment 0 [facility] Work Phone: Start: 11-20-2024 Tobacco smoking stat us NHIS Never smoked tobacco (finding) [facility] Clinical Notes 12-01-2018 to 07-08-2025 Note Date & Type Note Facility 07-08-2025 Progress note [facility] 04-15-2025 Discharge summary Note Date/Time April 15, 2025 2:31pm [facility] Physical Therapy [facility] [address] [place] [address] / REHABILITATION SERVICES DISCHARGE SUMMARY MR#: [id number] Acct: [id number] Name: KETTY MALHOTRA Rep #: [id number] : 1975 49 From: Chris Hernandez PT, ATC Referring Dr.: Dr. Ashu Rodriguez, DO Status: REG RCR Insurance: Valued Relationships/[facility] SELF PAY INSURANCE Patient Information Patient Information: KETTY MALHOTRA was seen in my office for initial evaluation on 12/10/24. The following Plan of Care was established for this patient: POC Established Initial Frequency: 2x /Week Initial Duration: 4-6 Weeks Anticipated Interventions Patient/Client Instruction: Educate patient on: Condition and Plan of Care For the Purpose of:: To improve self management Therapeutic Exercise to Include: Strength training, Endurance training, Body mechanics, Postural training and Scapular Strength/Stabilization For the Purpose of:: To decrease pain, To increase ROM and To improve muscle performance and motor function Manual Therapy Techniques to Include: Mobilization and Soft tissue mobilization For the Purpose of:: To decrease pain and To improve muscle performance and motor function Intermittent cervical traction: Yes For the Purpose of:: To decrease pain and To improve muscle performance and motor function Last Seen Last Seen: This patient was last seen in our office . Pertinent comments regarding their Physical therapy will appear below: Pt has not returned for greater than 30 days and is discontinued at this time. At this point I will be discontinuing this patient from physical therapy. I would be happy to see this patient again in the future if found appropriate by the physician. Thank you! Chris Hernandez PT, ATC Balance/Gait/Functional tests Balance/Special Test Scores Oswestry Neck Score: 13 <Electronically signed by Chris Hernandez PT, ATC> 04/15/25 1431 CC: ML Story; Dr. Ashu Rodriguez, DO ~ [facility] Signed [facility] Work Phone: [phone] Discharge summary [facility] Physical Therapy [address] [place] [address] / REHABILITATION SERVICES DISCHARGE SUMMARY MR#: [id number] Acct: [id number] Name: KETTY MALHOTRA Rep #: [id number] : 1975 49 From: Chris Hernandez PT, ATC Referring Dr.: Dr. Ashu Rodriguez, DO Status: REG RCR Insurance: Val[employer] Relationships/[facility] SELF PAY INSURANCE Patient Information Patient Information: KETTY MALHOTRA was seen in my office for initial evaluation on 12/10/24. The following Plan of Care was established for this patient: POC Established Initial Frequency: 2x /Week Initial Duration: 4-6 Weeks Anticipated Interventions Patient/Client Instruction: Educate patient on: Condition and Plan of Care For the Purpose of:: To improve self management Therapeutic Exercise to Include: Strength training, Endurance training, Body mechanics, Postural training and Scapular Strength/Stabilization For the Purpose of:: To decrease pain, To increase ROM and To improve muscle performance and motor function Manual Therapy Techniques to Include: Mobilization and Soft tissue mobilization For the Purpose of:: To decrease pain and To improve muscle performance and motor function Intermittent cervical traction: Yes For the Purpose of:: To decrease pain and To improve muscle performance and motor function Last Seen Last Seen: This patient was last seen in our office . Pertinent comments regarding their Physical therapy willappear below: Pt has not returned for greater than 30 days and is discontinued at this time. At this point I will be discontinuing this patient from physical therapy. I would be happy to see this patient again in the future if found appropriate by the physician. Thank you! Chris Hernandez PT, ATC Balance/Gait/Functional tests Balance/Special Test Scores Oswestry Neck Score: 13 04/15/25 1431 CC: ML Story; Dr. Ashu Rodriguez, DO ~ [facility] Signed [facility]06-10-2025 Telephone encounter Note* Telephone Encounter - Alejandra Arambula PA-C - 03/19/2025 5:38 PM EDT Pt is overdue for annual; please call to schedule. Sent last refill. Alejandra Arambula PA-C [facility]06-10-2025 Miscellaneous Notes* Telephone Encounter - Alejandra Arambula PA-C - 03/19/2025 5:38 PM EDT Pt is overdue for annual; please call to schedule. Sent last refill. Alejandra Arambula PA-C [facility]24 Miscellaneous Notes* Telephone Encounter - Alejandra Arambula PA-C - 11/18/2023 2:57 PM EST Pt had annual last month. Alejandra Arambula PA-C documented in [facility] encounterL[facility]03-15-[facility]23 History of Present illness Narrative* Alejandra Arambula PA-C - 12/22/2022 11:18 AM EDT SUBJECTIVE: Ketty Malhotra is a 47 year old female who c/o "excruciating" left sided abdominal pain; first noticed 12/14/22. She had an ultrasound done at work and needs an "official ultrasound" because her it showed a thick walled complex cyst on her left ovary, and the left ovary measured 6cm. She wants to have CA125 checked; she feels abdominal bloating. No LMP recorded (lmp unknown). Patient has had an ablation. She has had spotting for one day last month and spotting again yesterday. Pt also c/o vaginal irritation; denies discharge. Sometimes her skin looks red. Pt also has a possible mole with darkhair that itches that she wants checked; discussed this area shows only hair growth. Wants orders to take with her for ultrasound and blood work. FAMILY HISTORY Problem Relation Age of Onset Blood Clots Mother DVT Mother Breast Cancer Mother 77 Hypertension Father Colon Polyps Brother 53 very large polyp other (Esophageal Cancer) Maternal Aunt other (stomach cancer) Maternal Aunt other (Esophageal Cancer) Maternal Uncle Liver Cancer Paternal Uncle PAST MEDICAL HISTORY Diagnosis Date Abnormal Pap smear of cervix 10/2014 ascus/-HPV 10/25 ascus/-HPV Arthritis Biceps tendinosis of right shoulder Depression Genital herpes Genital warts Menorrhagia Uterine fibroid PAST SURGICAL HISTORY Procedure Laterality Date BACK SURGERY HX 2013 removed lumbar bone spurs SECTION HX 2003 CRYO CAUTERY CERVIX F SNGL 2009 INCISE PERIANAL AREA cyst LAMINECTOMY W/O FFD 10/11 VERT SEG LUMBAR 11/02/2012 NEUROPLASTY &/TRANSPOS MEDIAN NRV CARPAL TUNNE Bilateral 11/24/2016 Carpal tunnel decomp PERCUTANEOUS LUMBAR DISKECTOMY 2013 S BALLOON,UTERINE ABLATION [address]158 12/02/2011 TUBAL LIGATION Social History Tobacco Use Smoking status: Former Smokeless tobacco: Never Vaping Use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 Member Role Status Dates Lesia Story DATAWAREHOUSE DEVELOPER, DATAWAREHOUSE DEVELOPER-C Primary Care Pr ovider, Attending Provider, Referring Provider Active Team Status: Inactive Member Role Status Dates Lesia Story DATAWAREHOUSE DEVELOPER, DATAWAREHOUSE DEVELOPER-C Primary Care Provider Active Dr. Dale Chacon MD Attending Provider, Referring Pr ovider Active Team Status: Active Member Role Status Dates Lesia Story DATAWAREHOUSE DEVELOPER, DATAWAREHOUSE DEVELOPER-C Primary Care Pr ovider, Attending Provider, Referring Provider Active Team Status: Active Member Role Status Dates Lesia Story DATAWAREHOUSE DEVELOPER, DATAWAREHOUSE DEVELOPER-C Primary Care Provider Active Health Risk Assessment Attending Provider, Referring P namitader Active Team Status: Inactive Member Role Status Dates Lesia Story DATAWAREHOUSE DEVELOPER, DATAWAREHOUSE DEVELOPER-C Primary Care Provider Active MELYSSA PA Attending Provider, Referring Provi david Active Firearms Specialist Relationship Specialty Start Date End Date Lesia Story NP [address] [place] [address] PCP - General 09/01/22 Alejandra Arambula PA-C [address] [address] Women's Health Specialist 12/01/18 Team Status: Active Member Role Status Dates Lesia Story DATAWAREHOUSE DEVELOPER, DATAWAREHOUSE DEVELOPER-C Primary Care Provider Active Dr. Dale Chacon MD Attending Provider, Referring Pr ovider Active Firearms Specialist Relationship Specialty Start Date End Date Lesia Story NP [address] [place] [address] PCP - General 09/01/22 Alejandra Arambula PA-C [address] [facility] [address] [place] [address] Women's Health Specialist 12/01/18 Team Status: Active Member Role/Relationship Status Dates Lesia Story NP, DATAWAREHOUSE DEVELOPER-C Primary Care Provider Active Team Status: Inactive Member Role/Relationship Status Dates Lesia Story NP, DATAWAREHOUSE DEVELOPER-C Primary Care Provider Active Start: January 10, 2025 End: January 10, 2025 Dr. Ashu Rodriguez DO Attending Provider Active Start: January 10, 2025 End: January 10, 2025 Dr. Ashu Rodriguez DO Referring Provider Active Start: January 10, 2025 End: January 10, 2025 Team Status: Active Member Role/Relationship Status Dates Lesia Story NP, DATAWAREHOUSE DEVELOPER-C Primary care physician Active Team Status: Inactive Member Role/Relationship Status Dates Lesia Story NP, DATAWAREHOUSE DEVELOPER-C Primary care physician Active Start: July 08, 2025 End: July 08, 2025 Lesia Story NP, DATAWAREHOUSE DEVELOPER-C Referring Provider Active Start: July 08, 2025 End: July 08, 2025 Dr. Ashu Rodriguez DO Attending physician Active Start: July 08, 2025 End: July 08, 2025 FOR RECORDS PERTAINING TO PATIENTS WHO ARE OR HAVE BEEN ENROLLED IN A CHEMICAL DEPENDENCY/SUBSTANCEABUSE PROGRAM, SOME INFORMATION MAY BE OMITTED. This clinical summary was aggregated from multiple sources. Caution should be exercised in using it in the provision of clinical care. This summary normalizes information from multiple sources, and as a consequence, information in this document may materially change the coding, format and clinical context of patient data. In addition, data may be omitted in some cases. CLINICAL DECISIONS SHOULD BE BASED ON THE PRIMARY CLINICAL RECORDS. [facility] [employer] [facility]. provides no warranty or guarantee of the accuracy or completeness of information in this document.
== END | disposition home or self-care (01) ==
LOC: OPBI 13:56
PROVIDERS: PCP Nurse Practitioner; Referring Provider Nurse Practitioner; Visit Provider Nurse Practitioner
DX: Z12.31 Encounter for screening mammogram for malignant neoplasm of breast (principal)
CPT/HCPCS: 77063; 77067

== ENCOUNTER → 2025-08-27 | Outpatient (CLI) | payer OTHER, SELFPAY ==
[2025-08-27 13:53] LABS: Follicle Stimulating Hormone 89.4 mIU/mL
[2025-08-29 04:22] LABS: PROGESTERONE 0.7 ng/mL (.)
[2025-08-30 13:08] LABS: Vitamin D 1,25-Dihydroxy 40.9 pg/mL (24.8-81.5)
[2025-09-02 12:08] LABS: Testosterone, % Free 2.06 % (0.50-2.80); Testosterone, Free 0.72 ng/dL (0.10-0.85)
== END | disposition home or self-care (01) ==
LOC: LAB 12:12
PROVIDERS: PCP Nurse Practitioner; Referring Provider Nurse Practitioner; Visit Provider Physician Assistant
DX: E34.9 Endocrine disorder, unspecified (principal); Z78.0 Asymptomatic menopausal state
CPT/HCPCS: 36415; 82652; 82670; 83001; 84144; 84402; 84403; 84443

== ENCOUNTER → 2025-09-04 | Outpatient (CLI) | payer OTHER, SELFPAY ==
--- OUTSIDE RECORDS SUMMARY | 2025-09-04 10:09 | XMS RPT_ITS | CCD ---
Author Organization [facility] Care Team Providers Care Heel Painter Name Role Phone Rajani Puckett Unavailable Unavailable Sanchez, Damian Unavailable Unavailable Sanchez, Damian Unavailable Unavailable SANCHEZ, DAMIAN Unavailable Unavailable SANCHEZ, DAMIAN Unavailable Unavailable NO REFERRING Unavailable Unavailable SANCHEZ, DAMIAN [place] Unavailable Unavailable SANCHEZ, DAMIAN [place] Unavailable Unavailable Jez CHILD'S NURSE, CHILD'S NURSE-C Lesia Primary Care Provider Jez CHILD'S NURSE, CHILD'S NURSE-C Lesia Referring Provider MELYSSA Arguelles Attending Provider Dr. Ashu Rodriguez Attending Provider Alejandra Arambula PA-C Unavailable Jez CHILD'S NURSE, CHILD'S NURSE-C Lesia Primary Care Provider Jez CHILD'S NURSE, CHILD'S NURSE-C Lesia Referring Provider Dr. Ashu Rodriguez Attending Provider [phone] Alejandra Arambula PA-C Unavailable Jez CHILD'S NURSE, Lesia Primary Care Provider Jez CHILD'S NURSE, CHILD'S NURSE-C Lesia Primary Care Provider Jez CHILD'S NURSE, CHILD'S NURSE-C Lesia Referring Provider Dr. Ashu Rodriguez Attending Provider Jez CHILD'S NURSE, Lesia Primary Care Provider Jez CHILD'S NURSE-C, Lesia Primary Care Provider Dr. Ashu Rodriguez DO Attending Provider Dr. Ashu Rodriguez DO Referring Provider Jez SOLIS-C, Lesia Primary Care Physician Jez SOLIS-C, Lesia Referring Provider Dr. Ashu Rodriguez DO Attending Physician [phone] Ashu Rodriguez Attending Unavailable Jez CHILD'S NURSE, Lesia Primary Care Unavailable Story CHILD'S NURSE, Lesia Referring Unavailable Jez CHILD'S NURSE, Lesia Primary Care Unavailable Ashu Rodriguez Attending Unavailable Jez CHILD'S NURSE, Lesia Referring Unavailable Assessment, Health Risk Attending Unavaila ble Assessment, Health Risk Referring Unavaila ble Story CHILD'S NURSE, Lesia Primary Care Unavailable Story CHILD'S NURSE, Lesia Primary Care Unavailable Story CHILD'S NURSE, Lesia Attending Unavailable Story CHILD'S NURSE, Lesia Referring Unavailable Jez CHILD'S NURSE, Lesia Primary Care Unavailable Ashu Rodriguez Attending Unavailable Ashu Rodriguez Referring Unavailable Ashu Rodriguez Attending Unavailable Michael, Ashu Referring Unavailable Jez CHILD'S NURSE, Lesia Primary Care Unavailable Assessment, Health Risk Attending Physician Unav ailable Assessment, Health Risk Referring Provider Unava ilable Jez SOLIS-C, Lesia Attending Physician Allergies Allergy Classification Reported Allergen(s) Allergy Type Date of Onset Reaction(s) Facility (5 sources) ampicillin; Translations: [AMPICILLIN] Drug Allergy Unknown [facility] Repository (1 source) IODINATED CONTRAST M; Translations: [IODINATED CONTRAST M] Propensity to adverse reactions (disorder) [facility] Repository (7 sources) iodine; Translations: [IODINE] Drug Allergy 6 Itching [facility] Repository (20 sources) lidocaine; Translations: [LIDOCAINE] Drug Allergy 6 Hives [facility] Rep[facility] Comment on above: INJECTED LIDOCAINE (20 sources) Iodinated Contrast Media; Translations: [Iodinated Contrast Media] Allergy to substance 9 Unknown [facility] Comment on above: only for kidney IVP Medications Current Medications Medication Drug Class(es) Dates Sig (Normalized) Sig (Original) 24 hr buPROPion hydrochloride 150 mg extended release oral tablet (20 sources) Aminoketone Start: 07-24-2024 End: 07-25-2025 take 1 tablet by mouth once daily in the morning Start: 08-05-2022 End: 07-24-2024 take 1 tablet by mouth every twelve hours Bupropion Hcl 150 mg tablet sustained-release 12 hr Discontinued 150 mg PO Q12H 60 30 August 08, 2023 5:48pm July 24, 2024 7:05pm Start: 07-28-2021 End: 08-05-2022 take 1 tablet by mouth once daily Bupropion Hcl 150 mg tablet sustained-release 12 hr Discontinued 150 mg PO daily 30 30 July 28, 2021 12:00am August 05, 2022 6:50pm Start: 11-30-2018 End: 08-07-2021 take 1 tablet by mouth once daily Bupropion Hcl (Wellbutrin Sr) 100 mg tablet sustained-release 12 hr Discontinued 100 mg PO DAILY November 30, 2018 1:00am August 07, 2021 12:49pm cholecalciferol 1.25 mg oral capsule (9 sources) Vitamin D Start: 08-08-2023 End: 07-24-2024 take 1 capsule by mouth every week cyclobenzaprine hydrochloride 10 mg oral tablet (20 sources) Muscle Relaxant Start: 07-02-2019 End: 07-25-2025 take 1 tablet by mouth at bedtime Comment on above: Take 1 tablet by garrett twice daily as needed. famotidine 20 mg oral tablet (20 sources) Histamine-2 Receptor Antagonist Start: 01-26-2022 End: 03-12-2022 take 1 tablet by mouth once daily Famotidine 40 mg tablet Discontinued 40 mg PO DAILY 30 January 26, 2022 12:00am March 12, 2022 8:11am Start: 08-17-2019 End: 07-25-2025 take 1 tablet by mouth once daily Start: 08-17-2019 famotidine (PE PCID) 20 mg tablet Famotidine Famotidine Active 20 MG PO TWICE A DAY 60 30 August 17, 2019 8:49am 08-17-2019 [facility] ([id number]) 08/17/2019 Active Start: 08-17-2019 End: 07-28-2021 take 1 tablet by mouth twice daily Famotidine (Pepcid) 20 mg tablet Discontinued 20 mg PO TWICE A DAY 60 30 August 17, 2019 1:00am July 28, 2021 8:44pm Comment on above: Famotidine Famotidin e Active 20 MG PO TWICE A DAY 60 30 August 17, 2019 8:49am 08-17-2019 [facility] ([id number]) hydrOXYzine hydrochloride 25 mg oral tablet (20 sources) Antihistamine Start: 01-27-20 End: 07-25-20 take 1 tablet by mouth three times daily as needed loratadine 10 mg oral tablet (20 sources) Start: 11-30-19 End: 07-25-20 take 1 tablet by mouth once daily Comment on above: 10 mg. omeprazole 20 mg delayed release oral capsule (20 sources) Proton Pump Inhibitor Start: 08-05-20 End: 07-25-20 take 1 capsule by mouth once daily Comment on above: Take by mouth. SEMAGLUTIDE SUBCUTANEOUS (2 sources) SEMAGLUTIDE SUBCUTANEOUS Inject subcutaneously. Active SEMAGLUTIDE SUBC UTANEOUS Inject subcutaneously. 0 Active Comment on above: Inject subcutaneousl y. traMADol hydrochloride 50 mg oral tablet (20 sources) Opioid Agonist Start: 07-25-2025 End: 07-25-2025 take 1 tablet by mouth twice daily as needed for pain Start: 08-05-2022 End: 07-08-2025 take 1 tablet by mouth twice daily as needed for pain Tramadol 50 mg tablet Discontinued 50 mg PO TWICE A DAY as needed for pain 60 5 July 24, 2024 7:08pm July 08, 2025 8:44am Comment on above: Take by mouth. valACYclovir 500 mg oral tablet (20 sources) Herpesvirus Nucleoside Analog DNA Polymerase Inhibitor, Herpes Simplex Virus Nucleoside Analog DNA Polymerase Inhibitor, Herpes Zoster Virus Nucleoside Analog DNA Polymerase Inhibitor Start: 07-16-2019 End: 07-25-2025 take 1 tablet by mouth once daily Comment on above: Take 1 tablet by garrett th once daily. take 1 tablet by garrett th once daily Completed/Discontinued Medications Medication Drug Class(es) Dates Sig (Normalized) Sig (Original) amoxicillin 500 mg oral capsule (15 sources) Penicillin-class Antibacterial Start: 11-30-2018 End: 12-10-2018 take 2 capsules by mouth twice daily Amoxicillin 500 mg capsule Discontinued 1000 mg PO TWICE A DAY 40 10 0 November 30, 2018 1:00am December 09, 2018 1:00am December 10, 2018 1:08am Start: 11-30-2018 End: 12-10-2018 take 1000 mg by mouth twice daily Amoxicillin Discontinued 1000 MG PO TWICE A DAY 40 November 30, 2018 12:00am December 10, 2018 12:08am atomoxetine 25 mg oral capsule (15 sources) Norepinephrine Reuptake Inhibitor Start: 07-28-2021 End: 03-12-2022 take 1 capsule by mouth once Atomoxetine (Strattera) 25 mg capsule Discontinued 25 mg PO ONCE 30 July 28, 2021 12:00am March 12, 2022 8:11am azithromycin 250 mg oral tablet (3 sources) Macrolide Antimicrobial Start: 01-07-2025 End: 01-12-2025 take 2 tablets by mouth once daily, then take 1 tablet by mouth once daily at mealtime Azithromycin 250 mg tablet Discontinued 250 mg PO daily 6 5 January 07, 2025 12:00am January 11, 2025 12:00am January 12, 2025 12:22am 2 po qd for 1 day then 1 po qd for 4 days with food or after eating flu vac qs 2017(4 yr up)CD(PF) (3 sources) Start: 07-28-2021 End: 07-28-2021 inject 60 ug by intramuscular injection once flu vac qs 2017(4 yr up)CD(PF) Discontinued 60 MCG IM ONCE July 28, 2021 8:01pm July 28, 2021 8:01pm fluconazole 150 mg oral tablet (7 sources) Azole Antifungal Start: 10-24-2023 End: 07-08-2025 Fluconazole 150 mg tablet Discontinued 150 mg PO Every 3 Days 2 July 13, 2024 12:00am July 08, 2025 8:41am Start: 09-27-2022 End: 12-22-2022 fluconazole (DIFLUCAN) 150 m g tablet 1 tablet po now; repeat in 2 days 2 tablet 0 09/27/2022 12/22/2022 Discontinued Comment on above: 1 tablet po now; rep eat in 2 days meloxicam 15 mg oral tablet (19 sources) Nonsteroidal Anti-inflammatory Drug Start: End: take 1 tablet by mouth once daily [...] / nitrofurantoin, monohydrate 75 mg oral capsule (15 sources) Nitrofuran Antibacterial Start: 07-15-2019 End: 07-23-2019 take 1 capsule by mouth every twelve hours at mealtime Nitrofurantoin Monohyd/M-Cryst 100 mg capsule Discontinued 1 NMA PO Q12H 14 7 0 July 15, 2019 12:00am July 21, 2019 12:00am July 23, 2019 12:08am administer with a meal/food; swallow whole; do not open, crush, dissolve , or chew norethindrone 0.35 mg oral tablet (20 sources) Start: 11-30-2018 End: 07-25-2025 take 1 tablet by mouth once daily Norethindrone (Contraceptive) (Kamilah) 0.35 mg tablet Discontinued 0.35 mg PO DAILY November 30, 2018 1:00am July 25, 2025 7:20pm Comment on above: Take 1 tablet by garrett once daily. pantoprazole 40 mg delayed release oral tablet (4 sources) Proton Pump Inhibitor Start: 08-01-2020 End: 12-22-2022 take 1 tablet by mouth once daily pantoprazole DR (PROTONIX) 40 mg tablet Take 1 tablet by mouth once daily. 30 minutes before eating. 90 tablet 1 08/01/2020 12/22/2022 Discontinued Comment on above: Take 1 tablet by garrett once daily. 30 minutes before eating. predniSONE 10 mg oral tablet (20 sources) Start: 01-26-2022 End: 03-12-2022 take 2 tablets by mouth twice daily, then take 1 tablet by mouth twice daily, then take 1 tablet by mouth once daily, then take 0.5 tablet by mouth once daily Prednisone 10 mg tablet Discontinued 10 mg PO DAILY 30 1 January 26, 2022 6:35pm March 12, 2022 [...] on above: Take 1 capsule by mo uth daily at bedtime. sulfamethoxazole 800 mg / trimethoprim 160 mg oral tablet (3 sources) Dihydrofolate Reductase Inhibitor Antibacterial, Sulfonamide Antimicrobial Start: 07-11-2024 End: 07-21-2024 Sulfamethoxazole-T rimethoprim 800-160 mg tablet Discontinued 1 {tbl} PO TWICE A DAY 20 10 0 July 11, 2024 12:00am July 20, 2024 12:00am July 21, 2024 12:13am Sebaceous cyst Sebaceous cyst infected cyst topiramate 50 mg oral tablet (11 sources) Start: 08-05-2022 End: 08-08-2023 take 1 tablet by mouth twice daily Topiramate (Topamax) 50 mg tablet Discontinued 50 mg PO TWICE A DAY 60 6 August 05, 2022 12:00am August 08, 2023 5:47pm triamcinolone acetonide 40 mg/ml injectable suspension (2 [...] Resolved: 9 Episodic Anal and rectal conditions (3 sources) Perirectal abscess; Translations: [Rectal abscess] 07-12-2024 [...] Chronic Immunizations and screening for infectious disease (15 sources) Contact with or exposure to other viral diseases; Translations: [Exposure to COVID-19 virus] 02-16-2021 Episodic Inflammatory diseases of female pelvic organs (1 source) Acute vaginitis; Translations: [Acute vaginitis] Episodic Malaise and fatigue (10 sources) Fatigue; Translations: [Other fatigue] 10-28-2022 Episodic Menopausal disorders (1 source) Perimenopausal state; Translations: [Menopausal and female climacteric states] Chronic Menstrual disorders (2 sources) Irregular periods; Translations: [Irregular menstruation, unspecified] Chronic Mood disorders (7 sources) Depressive disorder; Translations: [Depression] Onset: 9 Resolved: 9 12-01-2018 Chronic Nutritional deficiencies (11 sources) Vitamin D deficiency; Translations: [Vitamin D deficiency, unspecified] 08-05-2022 Chronic Nutritional deficiencies (11 sources) Vitamin B deficiency; Translations: [Vitamin B [...] shoulder] 02-17-2022 Episodic Other connective tissue disease (7 sources) Bicipital tendinitis, right shoulder; Translations: [Bicipital tenosynovitis] Episodic Other connective tissue disease (2 sources) Pain in arm, unspecified; Translations: [Pain in limb] Episodic Other connective tissue disease (2 sources) Other enthesopathies, not elsewhere classified; Translations: [Disorders of bursae and tendons in shoulder region, unspecified] Episodic Other connective tissue disease (6 sources) Tendonitis of right shoulder; Translations: [Other enthesopathies, not elsewhere classified] 01-12-2022 Episodic Other connective tissue disease (1 source) Bursitis of shoulder; Translations: [Bursitis of right shoulder] 11-21-2024 Episodic Other connective tissue disease (3 sources) Ganglion cyst of the right volar wrist; Translations: [Ganglion, right wrist] 02-10-2024 Episodic Other connective tissue disease (2 sources) Impingement syndrome of right shoulder region; Translations: [Impingement syndrome of right shoulder] 01-21-2022 Episodic Other connective tissue disease (4 sources) Bilateral bursitis of shoulders; Translations: [Bursitis of right shoulder] 11-21-2024 Episodic Other connective tissue disease (1 source) Bursitis of right shoulder; Translations: [Bursitis of right shoulder] Onset: 5 Episodic Other connective tissue disease (1 source) Bursitis of left shoulder; Translations: [Bursitis of left shoulder] Onset: 5 Episodic Other ear and sense organ disorders (3 sources) Tinnitus; Translations: [Tinnitus, unspecified ear] 01-07-2025 [...] shoulder] 01-13-2022 Episodic Other non-traumatic joint disorders (3 sources) Multiple joint pain; Translations: [Pain in unspecified joint] 11-21-2024 Episodic Other nutritional; endocrine; and metabolic disorders (1 source) Obesity, unspecified Onset: 7 Chronic Other nutritional; endocrine; and metabolic disorders (6 sources) Obese class I; Translations: [Obesity, unspecified] Onset: 8 08-28-2018 Chronic Other skin disorders (11 sources) Alopecia; Translations: [Nonscarring hair loss, unspecified] 08-05-2022 Episodic Other skin disorders (3 sources) Sebaceous cyst of skin; Translations: [Sebaceous cyst] 07-11-2024 Episodic Other upper respiratory infections (18 sources) Streptococcal sore throat; Translations: [Streptococcal pharyngitis] 11-30-2018 Episodic Ovarian cyst (1 source) Cyst of left ovary; Translations: [Unspecified ovarian cyst, left side] Episodic Screening or history of mental health and substance abuse (2 sources) Personal history of nicotine dependence; Translations: [Personal history of nicotine dependence] Onset: 8 Episodic Sprains and strains (15 sources) Strain of neck muscle; Translations: [Strain of muscle, fascia and tendon at neck level, initial encounter] 07-23-2019 Episodic Unclassified (15 sources) Encounter for screening mammogram for malignant [...] 05-14-2020 05-14-2020 Episodic Other non-traumatic joint disorders (15 sources) Pain in right shoulder; Translations: [Pain [...] [Dorsalgia, unspecified] Onset: 12-01-2018 12-01-2018 Episodic Unclassified (11 sources) HISTORY OF CARPAL TUNNEL 05-10-2022 Unclassified (11 sources) NECK/BACK PAIN 05-10-2022 Urinary tract infections (1 source) Acute cystitis; Translations: [Acute cystitis with hematuria] Onset: 12-01-2018 Resolved: 12-01-2018 12-01-2018 Episodic Results Test Name Value Interpretation Reference Range Facility SCRN MAMM (CAD)W/ALEX BILATo n 07-30-2025 SCRN MAMM (CAD)W/ALEX BILAT [facility] Imaging Services [address] [place] [id number] SCRN MAMM (CAD)W/ALEX BILAT MR#: [id number] Acct: [id number] Name: KETTY MALHOTRA Rep #: [id number] : 1975 F 49 From: Pauly Ocampo i, MD PCP: ML Woodard Status: [facility] Study: SCRN MAMM (CAD)W/ALEX BILAT Date of Exam: 07/11 11/03 Exam# [id number] Ordering Dr: Lesia Story NP N P-C EXAM: SCRN MAMM (CAD)W/ALEX BILAT DATE: 07/30/2025 CLINICAL HISTORY: F, Age 49 y/o , SCREENING TECHNIQUE: Procedure Code: [id number] Modality: MG Procedure: SCRN MAMM (CAD)W/ALEX BILAT COMPARISON: Prior exam(s) were compared FINDINGS: TISSUE DENSITY: The breasts are heterogeneously dense, which may obscure small masses. Bilateral Breast Mammographic Findings: No suspicious masses, calcifications or other abnormalities are identified. BI/SCRN MAMM (CAD)W/ALEX BILAT IMPRESSION: No mammographic evidence of malignancy in either breast. OVERALL FINAL ASSESSMENT BI-RADS 1: NEGATIVE. RECOMMENDATION: Routine annual follow-up in 1 Year Additional Recommendation none A letter with findings and recommendations will be mailed to the patient. Reading Location: [id number] CC: ML Story Audiovisual Technician: Signed Normal [facility] Absolute lymphocyte countOrd ered By: HEALTH ASSESSMENT on 07-23-2025 Lymphocytes Auto (Unsp spec) [#/Vol] 3.43 10*3/uL 0.83-4.51 [facility] Absolute neutrophil countOrd ered By: HEALTH ASSESSMENT on 07-23-2025 Neutrophils (Bld) [#/Vol] 4.1 10*3/uL 2.0-7.7 [facility] Absolute nucleated red blood cell countOrdered By: HEALTH ASSESSMENT on 07-23-2025 Nucleated RBC (Bld) [#/Vol] 0.00 10*3/uL 0-5 [facility] Anion gap in Serum or Plasma Ordered By: HEALTH ASSESSMENT on 07-23-2025 Anion gap [Moles/Vol] 10 mmol/L 5- [facility] BUN/creatinine ratioOrdered By: HEALTH ASSESSMENT on 07-23-2025 Urea nitrogen/Creatinine [Mass ratio] 22.6 mg/mg High - [facility] Bilirubin Test strip Ql (U)O rdered By: HEALTH ASSESSMENT on 07-23-2025 Bilirubin Ql (U) Negative Negative [facility] Bilirubin directOrdered By: HEALTH ASSESSMENT on 07-23-2025 Bilirubin.direct [Mass/Vol] 0.37 mg/dL High 0.00-0.30 [facility] Bilirubin, totalOrdered By: HEALTH ASSESSMENT on 07-23-2025 Bilirubin [Mass/Vol] 0.92 mg/dL 0.00-1.30 [facility] CBC, Employeeon 07-23-2025 Absolute Lymph 3.43 X10 3/uL Normal 0.83-4.51 [facility] Comment on above: Performed By: #### L 400.0100, L500.2900, L100.0200 #### [facility] [place] [address], [address] Absolute Neut 4.1 X10 3/uL Normal 2.0-7.7 [facility] Comment on above: Performed By: #### L 400.0100, L500.2900, L100.0200 #### [facility] [address] [place], [address] Basophils/100 WBC (Bld) 0.7 % Normal 0-1 [facility] Comment on above: Performed By: #### L 400.0100, L500.2900, L100.0200 #### [facility] [address] [place], [address] Eosinophils/100 WBC (Bld) 4.0 % Normal 0-5 [facility] Comment on above: Performed By: #### L 400.0100, L500.2900, L100.0200 #### [facility] [address] [place], [address] Erythrocyte distribution width (RBC) [Ratio] 12.5 % Normal 11.6-14.6 [facility] Comment on above: Performed By: #### L 400.0100, L500.2900, L100.0200 #### [facility] [address] [place], [address] Hematocrit (Bld) [Volume fraction] 45.5 % Normal 37-47 [facility] Comment on above: Performed By: #### L 400.0100, L500.2900, L100.0200 #### [facility] [address] [place], [address] Hemoglobin (Bld) [Mass/Vol] 15.9 g/dL High 12.0-15.0 [facility] Comment on above: Performed By: #### L 400.0100, L500.2900, L100.0200 #### [facility] [address] [place], [address] Lymphocytes/100 WBC (Bld) 38.9 % Normal 19-41 [facility] Comment on above: Performed By: #### L 400.0100, L500.2900, L100.0200 #### [facility] [address] [place], [address] MCH (RBC) [Entitic mass] 32.8 pg High 27.0-32.0 [facility] Comment on above: Performed By: #### L 400.0100, L500.2900, L100.0200 #### [facility] [address] [place], [address] MCHC (RBC) [Mass/Vol] 34.9 g/dL Normal 32-[address] [facility] Comment on above: Performed By: #### L 400.0100, L500.2900, L100.0200 #### [facility] [address] [place], [address] MCV (RBC) [Entitic vol] 93.8 fL Normal 81-99 [facility] Comment on above: Performed By: #### L 400.0100, L500.2900, L100.0200 #### [facility] [address] [place], [address] Monocytes/100 WBC (Bld) 9.8 % Normal 0-10 [facility] Comment on above: Performed By: #### L 400.0100, L500.2900, L100.0200 #### [facility] [address] [place], [address] Neutrophils/100 WBC (Bld) 46.3 % Low 47-70 [facility] Comment on above: Performed By: #### L 400.0100, L500.2900, L100.0200 #### [facility] [address] [place], [address] NRBC # 0.00 10 3/uL Normal 0-5 [facility] Comment on above: Performed By: #### L 400.0100, L500.2900, L100.0200 #### [facility] [address] [place], [address] Nucleated RBC (Bld) [#/Vol] 0 10*3/uL Normal 0-5 [facility] Comment on above: Performed By: #### L 400.0100, L500.2900, L100.0200 #### [facility] [address] [place], [address] Platelet mean volume (Bld) [Entitic vol] 9.6 fL Normal 6.2-12.0 [facility] Comment on above: Performed By: #### L 400.0100, L500.2900, L100.0200 #### [facility] [address] [place], [address] Platelets (Bld) [#/Vol] 316 10*3/uL Normal 150-450 [facility] Comment on above: Performed By: #### L 400.0100, L500.2900, L100.0200 #### [facility] [address] [place], [address] RBC (Bld) [#/Vol] 4.85 10*6/uL Normal 4.2-5.4 [facility] Comment on above: Performed By: #### L 400.0100, L500.2900, L100.0200 #### [facility] [address] [place], [address] RDW SD 43.3 fl Normal 35.1-43.9 [facility] Comment on above: Performed By: #### L 400.0100, L500.2900, L100.0200 #### [facility] [address] [place], [address] WBC (Bld) [#/Vol] 8.8 10*3/uL Normal 4.4-11.0 [facility] Comment on above: Performed By: #### L 400.0100, L500.2900, L100.0200 #### [facility] [address] [place], [address] Calculated very low density lipoprotein (VLDL) cholesterol measurementOrdered By: HEALTH ASSESSMENT on 07-23-2025 Calculated very low density lipoprotein (VLDL) cholesterol measurement 13 mg/dL 5-40 [facility] Carbon dioxide, total [Moles /volume] in Central venous bloodOrdered By: HEALTH ASSESSMENT on 07-23-2025 CO2 [Moles/Vol] 22.3 mmol/L 21.0-32.0 [facility] Chloride assayOrdered By: HE ALTH ASSESSMENT on 07-23-2025 Chloride [Moles/Vol] 105 mmol/L 98-108 [facility] Employee Profile[employer] LDH 94 U/L Normal 84-246 [facility] Comment on above: Performed By: #### L 400.0100, L500.2900, L100.0200 #### [facility] [address] [place], [address] Phosphate [Mass/Vol] 3.6 mg/dL Normal 2.7-4.5 [facility] Comment on above: Performed By: #### L 400.0100, L500.2900, L100.0200 #### [facility] [address] [place], [address] URIC 3.3 mg/dL Normal 2.6-6.0 [facility] Comment on above: Result Comment: The drugs N-Acetylcysteine and Metamizole may falsely depress this assay. Performed By: #### L 400.0100, L500.2900, L100.0200 #### [facility] [address] [place], [address] Erythrocyte distribution wid th ratioOrdered By: HEALTH ASSESSMENT on 07-23-2025 Erythrocyte distribution width (RBC) [Ratio] 12.5 % 11.6-14.6 [facility] Erythrocyte distribution wid th standard deviationOrdered By: HEALTH ASSESSMENT on 07-23-2025 Erythrocyte distribution width (RBC) [Ratio] 43.3 fl 35.1-43.9 [facility] Glomerular filtration rate ( GFR) estimation/1.73 sq m using serum, plasma, or whole bOrdered By: HEALTH ASSESSMENT on 07-23-2025 GFR/1.73 sq M.predicted among non-blacks MDRD (S/P/Bld) [Vol rate/Area] 93 mL/min/{1.73_m2} >60 [facility] Comment on above: mL/min/1.73m2 CKD-EP I Creatinine Equation (2020) Hematocrit Auto (Bld) [Volum e fraction]Ordered By: HEALTH ASSESSMENT on 07-23-2025 Hematocrit (Bld) [Volume fraction] 45.5 % 37-47 [facility] Hemoglobin measurementOrdere d By: HEALTH ASSESSMENT on 07-23-2025 Hemoglobin (Bld) [Mass/Vol] 15.9 g/dL High 12.0-15.0 [facility] Ketones Test strip Ql (U)Ord ered By: HEALTH ASSESSMENT on 07-23-2025 Ketones Ql (U) Negative Negative [facility] LDL calc ser/plasOrdered By: HEALTH ASSESSMENT on 07-23-2025 Cholesterol in LDL [Mass/Vol] 87 mg/dL [facility] Comment on above: Xhudhlretw=311-527 m g/dL & Higher Vcgg=344 mg/dL or greaterFriedwald Equation for LDL-C Laboratory - Chemistry and C hemistry - challengeOrdered By: HEALTH ASSESSMENT on 07-23-2025 AST [Catalytic activity/Vol] 21 U/L <32 [facility] Lactate dehydrogenase (LDH) measurementOrdered By: HEALTH ASSESSMENT on 07-23-2025 LDH [Catalytic activity/Vol] 94 U/L 84-246 [facility] MCV (mean corpuscular volume ) determinationOrdered By: HEALTH ASSESSMENT on 07-23-2025 MCV (RBC) [Entitic vol] 93.8 fL 81-99 [facility] Mean corpuscular hemoglobin (MCH) determinationOrdered By: HEALTH ASSESSMENT on 07-23-2025 MCH (RBC) [Entitic mass] 32.8 pg High 27.0-32.0 [facility] Mean corpuscular hemoglobin concentration (MCHC) determinationOrdered By: HEALTH ASSESSMENT on 07-23-2025 MCHC (RBC) [Mass/Vol] 34.9 g/dL 32-[address] [facility] Mean platelet volume determi nationOrdered By: HEALTH ASSESSMENT on 07-23-2025 Platelet mean volume (Bld) [Entitic vol] 9.6 fL 6.2-12.0 [facility] Neutrophil percentageOrdered By: HEALTH ASSESSMENT on 07-23-2025 Neutrophils/100 WBC (Bld) 46.3 % Low 47-70 [facility] Nitrite Test strip Ql (U)Ord ered By: HEALTH ASSESSMENT on 07-23-2025 Nitrite Ql (U) Negative Negative [facility] Nucleated red blood cell per centageOrdered By: HEALTH ASSESSMENT on 07-23-2025 Nucleated RBC/100 WBC (Bld) [Ratio] 0 % 0-5 [facility] Platelet countOrdered By: HE ALTH ASSESSMENT on 07-23-2025 Platelets (Bld) [#/Vol] 316 10*3/uL 150-450 [facility] Potassium measurement (mass/ volume)Ordered By: HEALTH ASSESSMENT on 07-23-2025 Potassium (Unsp spec) [Mass/Vol] 4.3 mmol/L 3.3-5.1 [facility] Protein Test strip Ql (U)Ord ered By: HEALTH ASSESSMENT on 07-23-2025 Protein Ql (U) 15 mg/dl High Negative [facility] RBC Auto (Bld) [#/Vol]Ordere d By: HEALTH ASSESSMENT on 07-23-2025 RBC (Bld) [#/Vol] 4.85 10*6/uL 4.2-5.4 [facility] Screening total cholesterol/ high density lipoprotein (HDL) cholesterol ratioOrdered By: HEALTH ASSESSMENT on 07-23-2025 Cholesterol.total/Chol esterol in HDL [Mass ratio] 2.31 {ratio} [facility] Serum creatinine measurement (mass/volume)Ordered By: HEALTH ASSESSMENT on 07-23-2025 Creatinine [Mass/Vol] 0.77 mg/dL 0.70-1.[address] [facility] Serum globulin measurementOr dered By: HEALTH ASSESSMENT on 07-23-2025 Globulin (S) [Mass/Vol] 2.5 g/dL 2.2-4.2 [facility] Serum glucose measurement (m ass/volume)Ordered By: HEALTH ASSESSMENT on 07-23-2025 Glucose [Mass/Vol] 102 mg/dL High 70-99 [facility] Serum or plasma alanine hurd otransferase (ALT) measurementOrdered By: HEALTH ASSESSMENT on 07-23-2025 ALT [Catalytic activity/Vol] 16 U/L <35 [facility] Serum or plasma albumin ariel urement (mass/volume)Ordered By: HEALTH ASSESSMENT on 07-23-2025 Albumin [Mass/Vol] 4.3 g/dL 3.5-5.0 [facility] Serum or plasma albumin/glob ulin mass ratioOrdered By: HEALTH ASSESSMENT on 07-23-2025 Albumin/Globulin [Mass ratio] 1.7 {ratio} 0.9-2.4 [facility] Serum or plasma alkaline kaiden sphatase measurementOrdered By: HEALTH ASSESSMENT on 07-23-2025 ALP [Catalytic activity/Vol] 68 U/L 35-104 [facility] Serum or plasma calcium ariel urement (mass/volume)Ordered By: HEALTH ASSESSMENT on 07-23-2025 Calcium [Mass/Vol] 9.2 mg/dL 7.6-11.0 [facility] Serum or plasma cholesterol in HDL measurement (mass/volume)Ordered By: HEALTH ASSESSMENT on 07-23-2025 Cholesterol in HDL [Mass/Vol] 76 mg/dL >40 [facility] Comment on above: National Cholesterol Education Program (NCEP) guidelines:<40 mg/dL: Low HDL-cholesterol (major risk factor for CHD)>= 60 mg/dL: High HDL-cholesterol (negative risk factor for CHD)HDL-cholesterol is affected by a number of factors, e.g. smoking, exercise, hormones, sex and age. Serum or plasma cholesterol measurement (mass/volume)Ordered By: HEALTH ASSESSMENT on 07-23-2025 Cholesterol [Mass/Vol] 176 mg/dL <201 [facility] Comment on above: Cholesterol level, D esirable <200 mg/dLBorderline high cholesterol 200-239 mg/dLHigh cholesterol >=240 mg/dLRecommendations of the NCEP Adult Treatment Panel for the following risk-cutoff thresholds for the [place] population. Serum or plasma urea nitroge n measurement (mass/volume)Ordered By: HEALTH ASSESSMENT on 07-23-2025 Urea nitrogen [Mass/Vol] 17 mg/dL 4-19 [facility] Serum or plasma uric acid me asurement (mass/volume)Ordered By: HEALTH ASSESSMENT on 07-23-2025 Urate [Mass/Vol] 3.3 mg/dL 2.6-6.0 [facility] Comment on above: The drugs N-Acetylcy steine and Metamizole may falsely depress this assay. Sodium levelOrdered By: HEAL ASSESSMENT on 07-23-2025 Sodium [Moles/Vol] 138 mmol/L 133-145 [facility] Total proteinOrdered By: [facility] ASSESSMENT on 07-23-2025 Protein [Mass/Vol] 6.8 g/dL 5.9-8.4 [facility] Triglycerides measurementOrd ered By: HEALTH ASSESSMENT on 07-23-2025 Triglyceride [Mass/Vol] 67 mg/dL <199 [facility] Comment on above: The drugs N-Acetylcy steine and Metamizole may falsely depress this assay. Normal range: <150 mg/dLBorderline High: 150-199 mg/dLHigh: 200-499 mg/dLVery High: >500 mg/dL Urinalysis, Employeeon 07-23 BILIRUBIN URINE Negative Normal Negative [facility] Comment on above: Order Comment: CLEAN CATCH Performed By: #### L 400.0100, L500.2900, L100.0200 #### [facility] [address] [place], [place], [id number] Clarity (U) Sl. Cloudy Normal Clear [facility] Comment on above: Order Comment: CLEAN CATCH Performed By: #### L 400.0100, L500.2900, L100.0200 #### [facility] [address] [place], [place], [id number] Color (U) Yellow Normal Yellow [facility] Comment on above: Order Comment: CLEAN CATCH Performed By: #### L 400.0100, L500.2900, L100.0200 #### [facility] [address] [place], [address] GLUCOSE, UR Normal Normal Normal [facility] Comment on above: Order Comment: CLEAN CATCH Performed By: #### L 400.0100, L500.2900, L100.0200 #### [facility] [address] [place], [address] KETONE UR Negative Normal Negative [facility] Comment on above: Order Comment: CLEAN CATCH Performed By: #### L 400.0100, L500.2900, L100.0200 #### [facility] [address] [place], [address] LEUK ESTERASE 100 /ul Abnormal Negative [facility] Comment on above: Order Comment: CLEAN CATCH Performed By: #### L 400.0100, L500.2900, L100.0200 #### [facility] [address] [place], [address] Nitrite Ql (U) Negative Normal Negative [facility] Comment on above: Order Comment: CLEAN CATCH Performed By: #### L 400.0100, L500.2900, L100.0200 #### [facility] [address] [place], [address] OCCULT BLOOD-UR Negative Normal Negative [facility] Comment on above: Order Comment: CLEAN CATCH Performed By: #### L 400.0100, L500.2900, L100.0200 #### [facility] [address] [place], [address] pH UR 6.0 Normal 5.0 - 8.0 [facility] Comment on above: Order Comment: CLEAN CATCH Performed By: #### L 400.0100, L500.2900, L100.0200 #### [facility] [address] [place], [address] PROT DIPSTX 15 mg/dl Abnormal Negative [facility] Comment on above: Order Comment: CLEAN CATCH Performed By: #### L 400.0100, L500.2900, L100.0200 #### [facility] [address] [place], [address] SP.GR. DIPSTX 1.020 Normal 1.002-1.03 0 [facility] Comment on above: Order Comment: CLEAN CATCH Performed By: #### L 400.0100, L500.2900, L100.0200 #### [facility] [address] [place], [address] UROBILI Normal Normal Normal [facility] Comment on above: Order Comment: CLEAN CATCH Performed By: #### L 400.0100, L500.2900, L100.0200 #### [facility] [address] [place], [address] Urine clarityOrdered By: [facility] ASSESSMENT on 07-23-2025 Clarity (U) Sl. Cloudy Clear [facility] Urine color determinationOrd ered By: HEALTH ASSESSMENT on 07-23-2025 Color (U) Yellow Yellow [facility] Urine glucose detectionOrder ed By: HEALTH ASSESSMENT on 07-23-2025 Glucose Ql (U) Normal mg/dl Normal [facility] Urine leukocyte esterase det ection by dipstickOrdered By: HEALTH ASSESSMENT on 07-23-2025 Leukocyte esterase Test strip Ql (U) 100 /ul High Negative [facility] Urine pHOrdered By: HEALTH A SSESSMENT on 07-23-2025 pH (U) 6.0 [pH] 5.0 - 8.0 [facility] Urine specific gravity measu rementOrdered By: HEALTH ASSESSMENT on 07-23-2025 Specific gravity (U) [Rel density] 1.020 1.002-1.03 0 [facility] Urine urobilinogen measureme ntOrdered By: HEALTH ASSESSMENT on 07-23-2025 Urobilinogen Ql (U) Normal mg/dl Normal [facility] White blood cell (WBC) count Ordered By: HEALTH ASSESSMENT on 07-23-2025 WBC (Bld) [#/Vol] 8.8 10*3/uL 4.4-11.0 [facility] Orthopedic Visit Reporton Orthopedic Visit Report [facility] [address] [place] [address] OFFICE VISIT Date of Service: 07/08/25 MR#: [id number] Acct: [id number] Name: KETTY MALHOTRA Rep #: [id number] : 1975 Provider: Dr. Ashu st, DO Age/Sex: 49/F [place] [facility] [place] Status: Signed Intake Vital Signs 01/07/25 18:30 [...] #90 caps 07/24/24 0 07/08/25 Rx release [facility] Medical History Perirectal abscess Ganglion cyst of [...] her arms at times. 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 Patient has bee [...] a refill (more content not included)... Normal [facility] Inital Evaluation (1) - PTon 12-10-2024 Inital Evaluation (1) - PT [facility] [address] [place] [address] / REHABILITATION SERVICES INITIAL EVALUATION MR#: [id number] Acct: [id number] Name: KETTY MALHOTRA Rep #: [id number] : 1975 49 From: Chris Hernandez PT, ATC Referring Dr.: Dr. Ashu Rodriguez DO Status: R [place] RCR Insurance: [facility] SELF PAY INSURANCE Patient's Visit Information Visit [...] her head. 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 For Medicare only, by signing this I certify the plan of care. Please let me know if there are questions or concerns regarding this plan of care. Physician Signature: ___Date: 12/10/24 1359 CC: ML Story; Dr. Ashu Rodriguez DO [facility] Signed Normal [facility] Orthopedic Visit Reporton Orthopedic Visit Report [facility] [address] [place] [id number] OFFICE VISIT Date of Service: 11/21/24 MR#: [id number] Acct: [id number] Name: MARYAKETTY Anabella Rep #: [id number] : 1975 Provider: Dr. Ashu st DO Age/Sex: 49/F [place] [facility] [place] Status: Signed Intake Vital Signs 07/24/24 18:54 [...] her arms at times. 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 Patient has bee [...] come back. Patient states she goes to [employer] on her own to work on back [...] much the (more content not included)... Normal [facility] Shoulder min 2 Viewson 11-20 Shoulder min 2 Views [facility] [address] [place], [place] [id number] Shoulder min 2 Views MR#: [id number] Acct: [id number] Name: KETTY MALHOTRA Rep #: [id number] : 1975 F 49 From: Jean Claude Keen PCP: ML Woodard Status: REG CLI Study: Shoulder min 2 Views Date of Exam: 11/20/24 Exam# [id number] Ordering Dr: Ashu Rodriguez DO PROCEDURE: SHOULDER MIN 2 VIEWS REASON FOR EXAM: Bilateral shoulder pain. TECHNIQUE: Four view right shoulder series five view left shoulder series (combined dictation). COMPARISON: Right shoulder study of 01/14/2022. RAD/Shoulder min 2 Views IMPRESSION: Right shoulder: [id number] right acromioclavicular joint degenerative changes are noted. Mild degenerative changes are seen about the right humeral head greater tuberosity. The right glenohumeral joint demonstrates minimal degenerative changes, without apparent joint narrowing. No fracture or dislocation is seen. Left shoulder: Tuvg-ja-afrjiluz left acromioclavicular joint degenerative changes are seen. Minimal left glenohumeral joint degenerative changes are noted, without apparent joint narrowing. No fracture or dislocation is evident. Reading Location: [address] CC: ML Story; Dr. Ashu Rodriguez DO Audiovisual Technician: Signed Normal [facility] Shoulder min 2 Views [facility] [address] [place], [place] [address] Shoulder min 2 Views MR#: [id number] Acct: [id number] Name: KETTY MALHOTRA Rep #: [id number] : 1975 F 49 From: Jean Claude Keen PCP: MERVIN WoodardC Status: REG CLI Study: Shoulder min 2 Views Date of Exam: 11/20/24 Exam# [id number] Ordering Dr: Ashu Rodriguez DO PROCEDURE: SHOULDER MIN 2 VIEWS REASON FOR EXAM: Bilateral shoulder pain. TECHNIQUE: Four view right shoulder series five view left shoulder series (combined dictation). COMPARISON: Right shoulder study of 01/14/2022. RAD/Shoulder min 2 Views IMPRESSION: Right shoulder: Qsux-tu-[id number] right acromioclavicular joint degenerative changes are noted. Mild degenerative changes are seen about the right humeral head greater tuberosity. The right glenohumeral joint demonstrates minimal degenerative changes, without apparent joint narrowing. No fracture or dislocation is seen. Left shoulder: Kjuo-bg-gkgnwvxe left acromioclavicular joint degenerative changes are seen. Minimal left glenohumeral joint degenerative changes are noted, without apparent joint narrowing. No fracture or dislocation is evident. Reading Location: [address] CC: CHILD'S NURSE-C Lesia Story; Dr. Ashu Rodriguez DO Audiovisual Technician: Signed Normal [facility] Absolute lymphocyte countOrd ered By: HEALTH ASSESSMENT on 07-29-2023 Lymphocytes Auto (Unsp spec) [#/Vol] 2.31 10*3/uL 0.83-4.51 [facility] Absolute reticulocyte countO rdered By: HEALTH ASSESSMENT on 07-29-2023 Reticulocytes (Bld) [#/Vol] 0.00 10*3/uL 0-5 [facility] Basophil percentageOrdered B y: HEALTH ASSESSMENT on 07-29-2023 Basophil percentage 3.7 mg/dL 2.5-4.9 [facility] Bilirubin [Mass/Vol] 1.40 mg/dL 0.20-1.00 [facility] Comment on above: For patients on eltr ombopag therapy, use of Dimension [place] TBIL is not recommended. Chloride [Moles/Vol] 113 mmol/L 98-107 [facility] Cholesterol [Mass/Vol] 148 mg/dL <200 [facility] Comment on above: <200 mg/dL Desirable 200-240 mg/dL Borderline >240 mg/dL High Risk Glucose [Mass/Vol] 110 mg/dL 74-106 [facility] Comment on above: Fasting Glucose resu lt from 100 to 125 mg/dL suggests IMPAIRED HOMEOSTASIS per A.D.A. criteria. LDH [Catalytic activity/Vol] 97 U/L 84-246 [facility] Neutrophils (Bld) [#/Vol] 2.6 10*3/uL 2.0-7.7 [facility] Potassium [Moles/Vol] 3.9 mmol/L 3.5-5.[address] [facility] Protein [Mass/Vol] 6.6 g/dL 6.4-8.2 [facility] Sodium [Moles/Vol] 142 mmol/L 136-145 [facility] Triglyceride [Mass/Vol] 83 mg/dL <199 [facility] Comment on above: The drugs N-Acetylcy steine and Metamizole may falsely depress this assay.Serum Triglycerides Reference Interval Normal <150 mg/dL Borderline high 150 - 199 mg/dL High 200 - 499 mg/dL Very High > or = 500 mg/dL WBC (Bld) [#/Vol] 6.0 10*3/uL 4.4-11.0 [facility] Blood erythrocytes count (nu mber/volume)Ordered By: HEALTH ASSESSMENT on 07-29-2023 RBC (Bld) [#/Vol] 4.50 10*6/uL 4.2-5.4 [facility] Blood hemoglobin measurement (mass/volume)Ordered By: HEALTH ASSESSMENT on 07-29-2023 Hemoglobin (Bld) [Mass/Vol] 14.7 g/dL 12.0-15.0 [facility] Blood platelet mean volumeOr dered By: HEALTH ASSESSMENT on 07-29-2023 Platelet mean volume (Bld) [Entitic vol] 10.7 fL 6.2-12.0 [facility] Determination of erythrocyte mean corpuscular volume (MCV)Ordered By: HEALTH ASSESSMENT on 07-29-2023 MCV (RBC) [Entitic vol] 98.0 fL 81-99 [facility] Direct bilirubinOrdered By: HEALTH ASSESSMENT on 07-29-2023 Bilirubin.direct [Mass/Vol] 0.33 mg/dL 0.00-0.30 [facility] Hematocrit Auto (Bld) [Volum e fraction]Ordered By: HEALTH ASSESSMENT on 07-29-2023 Hematocrit (Bld) [Volume fraction] 44.1 % 37-47 [facility] Laboratory - Chemistry and C hemistry - challengeOrdered By: HEALTH ASSESSMENT on 07-29-2023 ALP [Catalytic activity/Vol] 61 U/L 45-117 [facility] ALT [Catalytic activity/Vol] 21 U/L 13-56 [facility] Cholesterol.total/Chol esterol in HDL [Mass ratio] 2.70 {ratio} [facility] CO2 [Moles/Vol] 24.0 mmol/L 21.0-32.0 [facility] Globulin (S) [Mass/Vol] 2.9 g/dL 2.2-4.2 [facility] Urea nitrogen/Creatinine [Mass ratio] 23.6 mg/mg 07-29 [facility] - Hematology and Cell countsOrdered By: HEALTH ASSESSMENT on 07-29-2023 Erythrocyte distribution width (RBC) [Entitic vol] 43.4 fL 35.1-43.9 [facility] Erythrocyte distribution width (RBC) [Ratio] 12.0 % 11.6-14.6 [facility] MCH (RBC) [Entitic mass] 32.7 pg 27.0-32.0 [facility] Nucleated RBC/100 WBC (Bld) [Ratio] 0 % 0-5 [facility] MCHC Auto (RBC) [Mass/Vol]Or dered By: HEALTH ASSESSMENT on 07-29-2023 MCHC (RBC) [Mass/Vol] 33.3 g/dL 32-[address] [facility] No Panel InformationOrdered By: HEALTH ASSESSMENT on 07-29-2023 Estimated GFR (MDRD) Amer 97 mL/min >60 [facility] Comment on above: GFR Calc Estimated GFR (MDRD) Non-Af Amer 80 mL/min >60 [facility] Comment on above: Non- GFR Calc Platelets bldOrdered By: HEA LTH ASSESSMENT on 07-29-2023 Platelets (Bld) [#/Vol] 300 10*3/uL 150-450 [facility] Segmented neutrophils/100 WB C Auto (Bld)Ordered By: HEALTH ASSESSMENT on 07-29-2023 Segmented neutrophils/100 WBC (Bld) 43.0 % 47-70 [facility] Serum or plasma albumin ariel urement (mass/volume)Ordered By: HEALTH ASSESSMENT on 07-29-2023 Albumin [Mass/Vol] 3.7 g/dL 3.2-5.0 [facility] Serum or plasma albumin/glob ulin mass ratioOrdered By: HEALTH ASSESSMENT on 07-29-2023 Albumin/Globulin [Mass ratio] 1.3 {ratio} 0.9-2.4 [facility] Serum or plasma calcium ariel urement (mass/volume)Ordered By: HEALTH ASSESSMENT on 07-29-2023 Calcium [Mass/Vol] 8.5 mg/dL 8.5-10.1 [facility] Serum or plasma cholesterol in HDL measurement (mass/volume)Ordered By: HEALTH ASSESSMENT on 07-29-2023 Cholesterol in HDL [Mass/Vol] 55 mg/dL >40 [facility] Comment on above: The drugs N-Acetylcy steine and Metamizole may falsely depress this assay. Reference Range HDL <40 mg/dL Low HDL Cholesterol HDL >or= 60 mg/dL High HDL Cholesterol Serum or plasma cholesterol in VLDL measurement (mass/volume)Ordered By: HEALTH ASSESSMENT on 07-29-2023 Cholesterol in VLDL [Mass/Vol] 17 mg/dL 5-40 [facility] Serum or plasma creatinine m easurement (mass/volume)Ordered By: HEALTH ASSESSMENT on 07-29-2023 Creatinine [Mass/Vol] 0.80 mg/dL 0.55-1.[address] [facility] Comment on above: The validity of the calculated GFR & GFRAA in patients over 70 years has not been determined. Clinical correlation is essential. Serum or plasma low density lipoprotein (LDL) cholesterol measurement (mass/volume)Ordered By: HEALTH ASSESSMENT on 07-29-2023 Cholesterol in LDL [Mass/Vol] 76 mg/dL 0-130 [facility] Serum or plasma urea nitroge n measurement (mass/volume)Ordered By: HEALTH ASSESSMENT on 07-29-2023 Urea nitrogen [Mass/Vol] 19 mg/dL 7-18 [facility] Serum or plasma uric acid me asurement (mass/volume)Ordered By: HEALTH ASSESSMENT on 07-29-2023 Urate [Mass/Vol] 4.1 mg/dL 2.6-6.0 [facility] Comment on above: The drugs N-Acetylcy steine and Metamizole may falsely depress this assay. Thin prep Papanicolaou smear with manual screeningOrdered By: HEALTH ASSESSMENT on 07-29-2023 Thin prep Papanicolaou smear with manual screening 17 U/L 15-37 [facility] Thin prep Papanicolaou smear with manual screening 5 5-15 [facility] No Panel InformationOrdered By: ALEJANDRA ARAMBULA on 12-23-2022 CA 125 Antigen 11.8 U/mL 0.0-38.1 [facility] Comment on above: [facility] El ectrochemiluminescence Immunoassay(ECLIA)Values obtained with different assay methods or kits cannotbe used interchangeably. Results cannot be interpreted asabsolute evidence of the presence or absence of malignantdisease.Performed at: [facility] [id number] Director: Deon Garcia PhD, Phone: [phone] Laboratory - Chemistry and C hemistry - challengeon 08-06-2022 Cobalamin (Vitamin B12) [Mass/Vol] 613 pg/mL 211-911 [facility] Work Phone: Free T4 [Mass/Vol] 0.85 ng/dL 0.76-1.46 [facility] Work Phone: No Panel Informationon 08-06 Thyroid Stimulating Hormone (TSH) 0.39 uIU/mL 0.358-3.74 [facility] Work Phone: Serum or plasma calcitriol m easurement (mass/volume)on 08-06-2022 1,25-dihydroxyvitamin D3 [Mass/Vol] 22.9 pg/mL 24.8-81.5 [facility] Work Phone: Comment on above: Performed at: - [address] [id number] Director: Kathie Wesley MD, Phone: [phone] Absolute lymphocyte counton 07-28-2022 Lymphocytes Auto (Unsp spec) [#/Vol] 2.81 10*3/uL 0.83-4.51 [facility] Work Phone: [phone] Absolute reticulocyte counto n 07-28-2022 Reticulocytes (Bld) [#/Vol] 0.00 10*3/uL 0-5 [facility] Work Phone: [phone] Basophil percentageon 2021 Basophil percentage 3.2 mg/dL 2.5-4.9 [facility] Work Phone: [phone] Bilirubin [Mass/Vol] 1.60 mg/dL 0.20-1.00 [facility] Work Phone: [phone] Comment on above: For patients on eltr ombopag therapy, use of Dimension [place] TBIL is not recommended. Chloride [Moles/Vol] 110 mmol/L 98-107 [facility] Work Phone: [phone] Cholesterol [Mass/Vol] 163 mg/dL <200 [facility] Work Phone: [phone] Comment on above: <200 mg/dL Desirable 200-240 mg/dL Borderline >240 mg/dL High Risk Glucose [Mass/Vol] 92 mg/dL 74-106 [facility] Work Phone: [phone] Neutrophils (Bld) [#/Vol] 3.1 10*3/uL 2.0-7.7 [facility] Work Phone: [phone] Potassium [Moles/Vol] 3.8 mmol/L 3.5-5.[address] [facility] Work Phone: [phone] Protein [Mass/Vol] 7.0 g/dL 6.4-8.2 [facility] Work Phone: [phone] Sodium [Moles/Vol] 141 mmol/L 136-145 [facility] Work Phone: [phone] Triglyceride [Mass/Vol] 94 mg/dL <199 [facility] Work Phone: [phone] Comment on above: The drugs N-Acetylcy steine and Metamizole may falsely depress this assay.Serum Triglycerides Reference Interval Normal <150 mg/dL Borderline high 150 - 199 mg/dL High 200 - 499 mg/dL Very High > or = 500 mg/dL WBC (Bld) [#/Vol] 7.1 10*3/uL 4.4-11.0 [facility] Work Phone: Blood erythrocytes count (nu mber/volume)on 07-28-2022 RBC (Bld) [#/Vol] 4.66 10*6/uL 4.2-5.4 [facility] Work Phone: [phone] Blood hemoglobin measurement (mass/volume)on 07-28-2022 Hemoglobin (Bld) [Mass/Vol] 15.4 g/dL 12.0-15.0 [facility] Work Phone: [phone] Blood platelet mean volumeon 07-28-2022 Platelet mean volume (Bld) [Entitic vol] 10.5 fL 6.2-12.0 [facility] Work Phone: Determination of erythrocyte mean corpuscular volume (MCV)on 07-28-2022 MCV (RBC) [Entitic vol] 95.7 fL 81-99 [facility] Work Phone: [phone] Direct bilirubinon 2 Bilirubin.direct [Mass/Vol] 0.28 mg/dL 0.00-0.30 [facility] Work Phone: Hematocrit Auto (Bld) [Volum e fraction]on 07-28-2022 Hematocrit (Bld) [Volume fraction] 44.6 % 37-47 [facility] Work Phone: Laboratory - Chemistry and C hemistry - challengeon 07-28-2022 ALP [Catalytic activity/Vol] 63 U/L 45-117 [facility] Work Phone: [phone] ALT [Catalytic activity/Vol] 27 U/L 13-56 [facility] Work Phone: [phone] Cholesterol.total/Chol esterol in HDL [Mass ratio] 2.50 {ratio} [facility] Work Phone: [phone] CO2 [Moles/Vol] 24.0 mmol/L 21.0-32.0 [facility] Work Phone: [phone] Globulin (S) [Mass/Vol] 3.3 g/dL 2.2-4.2 [facility] Work Phone: [phone] Urea nitrogen/Creatinine [Mass ratio] 16.4 mg/mg 10-20 [facility] Work Phone: [phone] Laboratory - Hematology and Cell countson 07-28-2022 Erythrocyte distribution width (RBC) [Entitic vol] 43.1 fL 35.1-43.9 [facility] Work Phone: [phone] Erythrocyte distribution width (RBC) [Ratio] 12.3 % 11.6-14.6 [facility] Work Phone: [phone] MCH (RBC) [Entitic mass] 33.0 pg 27.0-32.0 [facility] Work Phone: [phone] Nucleated RBC/100 WBC (Bld) [Ratio] 0 % 0-5 [facility] Work Phone: [phone] MCHC Auto (RBC) [Mass/Vol]on 07-28-2022 MCHC (RBC) [Mass/Vol] 34.5 g/dL 32-[address] [facility] Work Phone: No Panel Informationon 07-28 Estimated GFR (MDRD) Amer 78 mL/min >60 [facility] Work Phone: Comment on above: GFR Calc Estimated GFR (MDRD) Non-Af Amer 64 mL/min >60 [facility] Work Phone: Comment on above: Non- GFR Calc Platelets bldon 07-28-2022 Platelets (Bld) [#/Vol] 303 10*3/uL 150-450 [facility] Work Phone: Segmented neutrophils/100 WB C Auto (Bld)on 07-28-2022 Segmented neutrophils/100 WBC (Bld) 43.9 % 47-70 [facility] Work Phone: Serum or plasma albumin ariel urement (mass/volume)on 07-28-2022 Albumin [Mass/Vol] 3.7 g/dL 3.2-5.0 [facility] Work Phone: Serum or plasma albumin/glob ulin mass ratioon 07-28-2022 Albumin/Globulin [Mass ratio] 1.1 {ratio} 0.9-2.4 [facility] Work Phone: Serum or plasma calcium ariel urement (mass/volume)on 07-28-2022 Calcium [Mass/Vol] 8.8 mg/dL 8.5-10.1 [facility] Work Phone: Serum or plasma cholesterol in HDL measurement (mass/volume)on 07-28-2022 Cholesterol in HDL [Mass/Vol] 64 mg/dL >40 [facility] Work Phone: Comment on above: The drugs N-Acetylcy steine and Metamizole may falsely depress this assay. Reference Range HDL <40 mg/dL Low HDL Cholesterol HDL >or= 60 mg/dL High HDL Cholesterol Serum or plasma cholesterol in VLDL measurement (mass/volume)on 07-28-2022 Cholesterol in VLDL [Mass/Vol] 19 mg/dL 5-40 [facility] Work Phone: Serum or plasma creatinine m easurement (mass/volume)on 07-28-2022 Creatinine [Mass/Vol] 0.98 mg/dL 0.55-1.[address] [facility] Work Phone: Comment on above: The validity of the calculated GFR & GFRAA in patients over 70 years has not been determined. Clinical correlation is essential. Serum or plasma low density lipoprotein (LDL) cholesterol measurement (mass/volume)on 07-28-2022 Cholesterol in LDL [Mass/Vol] 80 mg/dL 0-130 [facility] Work Phone: Serum or plasma urea nitroge n measurement (mass/volume)on 07-28-2022 Urea nitrogen [Mass/Vol] 16 mg/dL 7-18 [facility] Work Phone: Serum or plasma uric acid me asurement (mass/volume)on 07-28-2022 Urate [Mass/Vol] 4.6 mg/dL 2.6-6.0 [facility] Work Phone: Comment on above: The drugs N-Acetylcy steine and Metamizole may falsely depress this assay. Thin prep Papanicolaou smear with manual screeningon 07-28-2022 Thin prep Papanicolaou smear with manual screening 19 U/L 15-37 [facility] Work Phone: Thin prep Papanicolaou smear with manual screening 7 5-15 [facility] Work Phone: Thin prep Papanicolaou smear with manual screening 96 U/L 84-246 [facility] Work Phone: OBSOLETEon 06-24-2021 OBSOLETE Refill ([id number]) KETTY MALHOTRA ([id number]) 1975 F Date Time Provider Department 06/24/21 LAEJANDRA ARAMBULA [id number] During your visit today, we recorded the [...] daily. KAROLINA: No Authorizing Provider: ALEJANDRA ARAMBULA PA-C Lindsay [...] DAY 58 August 17, 2019 8:49am 08-17-2019 [facility] ([id number]) - loratadine (CLARITIN) 10 mg tablet 10 [...] Encounter Status:Closed by ALEJANDRA ARAMBULA on 06/24/21 [facility] OBSOLETEon 01-08-2021 OBSOLETE Refill (STFLF) KETTY MALHOTRA ([id number]) 1975 F Date Time Provider Department 01/08/21 DAMIAN BRADFORD STFLF During your visit today, we recorded the following information about you: Alyssa SÁNCHEZ 01/08/2021 4:44 PM Signed Patient has been [...] Status:Closed by DAMIAN BRADFORD MD on 01/09/21 Normal [facility] MG Breast Tomosynthesis Scr Blon 01-17-2018 MG Breast Tomosynthesis Scr Bl Patient Name: KETTY MALHOTRA Mammography Exam Date/Time 01/17/2018 10:08:20 EDT Exam MG Breast Tomosynthesis BI Scr Ordering Physician RAJANI PUCKETT Accession Number [id number] CPT4 Codes 03532 (MG Breast Tomosynthesis Scr Bl), 35818 (MG MAMMO 2D SCREENING) Reason For Exam [...] MG breast tomosynthesis bl scr performed at [facility]. TISSUE DENSITY: There are scattered fibroglandular densities. . FINDINGS: No suspicious masses, architectural distortions or suspiciously clustered microcalcifications are identified. There is no evidence of skin thickening or nipple retraction. There are no significant changes when compared with prior studies. Markings on images: BB's = Nipples; skin lesions Open mi[place] = Palpable Line = Scar 2D digital [...] Time: 01/17/2018 11:43 am Signed by: MD CONTE LAUREN B [facility] Vital Signs Date Time Vital Sign Value Performing Clinician Faci lity 07-25-2025 20:23-0400 Body height 162.56 cm Lesia Story CHILD'S NURSE-C Work Phone: [facility] 07-25-2025 20:23-0400 Body mass index (BMI) [Ratio] 28.6 kg/m2 Lesia Story CHILD'S NURSE-C Work Phone: [phone] [address] 07-25-2025 20:23-0400 Body temperature 97.5 [degF] Lesia Story CHILD'S NURSE-C Work Phone: [facility] 07-25-2025 20:23-0400 Body weight 75.74 kg Lesia Story CHILD'S NURSE-C Work Phone: [phone] [address] 07-25-2025 20:23-0400 Diastolic blood pressure 70 mm[Hg] Lesia Story CHILD'S NURSE-C Work Phone: [facility] 07-25-2025 20:23-0400 Heart rate 88 /min Lesia Story CHILD'S NURSE-C Work Phone: [facility] 07-25-2025 20:23-0400 Respiratory rate 18 /min Lesia Story CHILD'S NURSE-C Work Phone: [facility] 07-25-2025 20:23-0400 SaO2% (BldA) [Mass fraction] 99 % Lesia Story CHILD'S NURSE-C Work Phone: [facility] 07-25-2025 20:23-0400 Systolic blood pressure 122 mm[Hg] Lesia Story CHILD'S NURSE-C Work Phone: [facility] 08-08-2023 17:46-0400 Body height 162.56 cm [facility] 08-08-2023 17:46-0400 Body mass index (BMI) [Ratio] 30.2 kg/m2 [facility] 08-08-2023 17:46-0400 Body temperature 97.9 [degF] [facility] 08-08-2023 17:46-0400 Body weight 79.83 kg [facility] 08-08-2023 17:46-0400 Diastolic blood pressure 80 mm[Hg] [facility] 08-08-2023 17:46-0400 Heart rate 86 /min [facility] 08-08-2023 17:46-0400 Respiratory rate 18 /min [facility] 08-08-2023 17:46-0400 SaO2% (BldA) [Mass fraction] 98 % [facility] 08-08-2023 17:46-0400 Systolic blood pressure 122 mm[Hg] [facility] 02-22-2023 16:38-0400 Body height 162.56 cm [facility] 02-22-2023 16:38-0400 Body mass index (BMI) [Ratio] 32.1 kg/m2 [facility] 02-22-2023 16:38-0400 Body temperature 98.1 [degF] [facility] 02-22-2023 16:38-0400 Body weight 84.82 kg [facility] 02-22-2023 16:38-0400 Diastolic blood pressure 60 mm[Hg] [facility] 02-22-2023 16:38-0400 Heart rate 92 /min [facility] 02-22-2023 16:38-0400 Respiratory rate 18 /min [facility] 02-22-2023 16:38-0400 SaO2% (BldA) [Mass fraction] 98 % [facility] 02-22-2023 16:38-0400 Systolic blood pressure 115 mm[Hg] [facility] 12-22-2022 11:18-0400 Body height 162.6 cm Alejandra Arambula PA-C Work Phone: [facility] 12-22-2022 11:18-0400 Body weight 87.09 kg Alejandra Arambula PA-C Work Phone: [facility] 12-22-2022 11:18-0400 Diastolic blood pressure 76 mm[Hg] Alejandra Arambula PA-C Work Phone: [facility] 12-22-2022 11:18-0400 Systolic blood pressure 114 mm[Hg] Alejandra Arambula PA-C Work Phone: [facility] 09-01-2022 11:41-0500 Body height 162.6 cm Alejandra Arambula PA-C Work Phone: [facility] 09-01-2022 11:41-0500 Body weight 85.73 kg Alejandraluis Arambula PA-C Work Phone: [facility] 09-01-2022 11:41-0500 Diastolic blood pressure 78 mm[Hg] Alejandra Arambula PA-C Work Phone: [facility] 09-01-2022 11:41-0500 Systolic blood pressure 124 mm[Hg] Alejandra Arambula PA-C Work Phone: [facility] 08-05-2022 12:58-0400 Body height 162.56 cm CHILD'S NURSE-C Lesia Story CHILD'S NURSE Work Phone: [facility] Work Phone: 08-05-2022 12:58-0400 Body mass index (BMI) [Ratio] 32.5 kg/m2 CHILD'S NURSE-C Lesia Story CHILD'S NURSE Work Phone: [facility] Work Phone: 08-05-2022 12:58-0400 Body temperature 97.7 [degF] CHILD'S NURSE-C Lesia Story CHILD'S NURSE Work Phone: [facility] Work Phone: 08-05-2022 12:58-0400 Body weight 86.18 kg CHILD'S NURSE-C Lesia Story CHILD'S NURSE Work Phone: [facility] Work Phone: 08-05-2022 12:58-0400 Diastolic blood pressure 80 mm[Hg] CHILD'S NURSE-C Lesia Story CHILD'S NURSE Work Phone: [facility] Work Phone: 08-05-2022 12:58-0400 Heart rate 95 /min CHILD'S NURSE-C Lesia Story CHILD'S NURSE Work Phone: [facility] Work Phone: 08-05-2022 12:58-0400 Respiratory rate 18 /min CHILD'S NURSE-C Lesia Story CHILD'S NURSE Work Phone: [facility] Work Phone: 08-05-2022 12:58-0400 SaO2% (BldA) [Mass fraction] 97 % CHILD'S NURSE-C Lesia Story CHILD'S NURSE Work Phone: [facility] Work Phone: 08-05-2022 12:58-0400 Systolic blood pressure 128 mm[Hg] CHILD'S NURSE-C Lesia Story CHILD'S NURSE Work Phone: [facility] Work Phone: 01-26-2022 18:23-0400 Body height 162.56 cm CHILD'S NURSE-C Lesia Story CHILD'S NURSE Work Phone: [facility] Work Phone: 01-26-2022 18:23-0400 Body mass index (BMI) [Ratio] 32.5 kg/m2 CHILD'S NURSE-C Lesia Story CHILD'S NURSE Work Phone: [facility] Work Phone: 01-26-2022 18:23-0400 Body temperature 97.7 [degF] CHILD'S NURSE-C Lesia Story CHILD'S NURSE Work Phone: [facility] Work Phone: 01-26-2022 18:23-0400 Body weight 86.18 kg CHILD'S NURSE-C Lesia Story CHILD'S NURSE Work Phone: [facility] Work Phone: 01-26-2022 18:23-0400 Diastolic blood pressure 70 mm[Hg] CHILD'S NURSE-C Lesia Story CHILD'S NURSE Work Phone: [facility] Work Phone: 01-26-2022 18:23-0400 Heart rate 82 /min CHILD'S NURSE-C Lesia Story CHILD'S NURSE Work Phone: [facility] Work Phone: 01-26-2022 18:23-0400 Respiratory rate 18 /min CHILD'S NURSE-C Lesia Story CHILD'S NURSE Work Phone: [facility] Work Phone: 01-26-2022 18:23-0400 SaO2% (BldA) [Mass fraction] 98 % CHILD'S NURSE-C Lesia Story CHILD'S NURSE Work Phone: [facility] Work Phone: 01-26-2022 18:23-0400 Systolic blood pressure 122 mm[Hg] CHILD'S NURSE-C Lesia Story CHILD'S NURSE Work Phone: [facility] Work Phone: 01-26-2022 18:23-0400 Body height 162.56 cm CHILD'S NURSE-C Lesia Story CHILD'S NURSE Work Phone: [facility] Work Phone: 01-26-2022 18:23-0400 Body mass index (BMI) [Ratio] 32.5 kg/m2 CHILD'S NURSE-C Lesia Story CHILD'S NURSE Work Phone: [facility] Work Phone: 01-26-2022 18:23-0400 Body temperature 97.7 [degF] CHILD'S NURSE-C Lesia Story CHILD'S NURSE Work Phone: [facility] Work Phone: 01-26-2022 18:23-0400 Body weight 86.18 kg CHILD'S NURSE-C Lesia Story CHILD'S NURSE Work Phone: [facility] Work Phone: 01-26-2022 18:23-0400 Diastolic blood pressure 70 mm[Hg] CHILD'S NURSE-C Lesia Story CHILD'S NURSE Work Phone: [facility] Work Phone: 01-26-2022 18:23-0400 Heart rate 82 /min CHILD'S NURSE-C Lesia Story CHILD'S NURSE Work Phone: [facility] Work Phone: 01-26-2022 18:23-0400 Respiratory rate 18 /min CHILD'S NURSE-C Lesia Story CHILD'S NURSE Work Phone: [facility] Work Phone: 01-26-2022 18:23-0400 SaO2% (BldA) [Mass fraction] 98 % CHILD'S NURSE-C Lesia Story CHILD'S NURSE Work Phone: [facility] Work Phone: 01-26-2022 18:23-0400 Systolic blood pressure 122 mm[Hg] CHILD'S NURSE-C Lesia Story CHILD'S NURSE Work Phone: [facility] Work Phone: 01-21-2022 15:11-0400 Body mass index (BMI) [Ratio] 33 kg/m2 CHILD'S NURSE-C Lesia Story CHILD'S NURSE Work Phone: [facility] Work Phone: 01-21-2022 15:11-0400 Body weight 87.14 kg CHILD'S NURSE-C Lesia Story CHILD'S NURSE Work Phone: [facility] Work Phone: 01-21-2022 15:11-0400 Body mass index (BMI) [Ratio] 33 kg/m2 CHILD'S NURSE-C Lesia Story CHILD'S NURSE Work Phone: [facility] Work Phone: 01-21-2022 15:11-0400 Body weight 87.14 kg CHILD'S NURSE-C Lesia Story CHILD'S NURSE Work Phone: [facility] Work Phone: 01-12-2022 18:53-0400 Body mass index (BMI) [Ratio] 32.5 kg/m2 CHILD'S NURSE-C Lesia Story CHILD'S NURSE Work Phone: [facility] Work Phone: 01-12-2022 18:53-0400 Body temperature 97.9 [degF] CHILD'S NURSE-C Lesia Story CHILD'S NURSE Work Phone: [facility] Work Phone: 01-12-2022 18:53-0400 Body weight 86.18 kg CHILD'S NURSE-C Lesia Story CHILD'S NURSE Work Phone: [facility] Work Phone: 01-12-2022 18:53-0400 Diastolic blood pressure 70 mm[Hg] CHILD'S NURSE-C Lesia Story CHILD'S NURSE Work Phone: [facility] Work Phone: 01-12-2022 18:53-0400 Heart rate 93 /min CHILD'S NURSE-C Lesia Story CHILD'S NURSE Work Phone: [facility] Work Phone: 01-12-2022 18:53-0400 Respiratory rate 18 /min CHILD'S NURSE-C Lesia Story CHILD'S NURSE Work Phone: [facility] Work Phone: 01-12-2022 18:53-0400 SaO2% (BldA) [Mass fraction] 98 % CHILD'S NURSE-C Lesia Story CHILD'S NURSE Work Phone: [facility] Work Phone: 01-12-2022 18:53-0400 Systolic blood pressure 100 mm[Hg] CHILD'S NURSE-C Lesia Story CHILD'S NURSE Work Phone: [facility] Work Phone: 01-12-2022 18:53-0400 Body height 162.56 cm [facility] Work Phone: 01-12-2022 18:53-0400 Body mass index (BMI) [Ratio] 32.5 kg/m2 [facility] Work Phone: 01-12-2022 18:53-0400 Body temperature 97.9 [degF] [facility] Work Phone: 01-12-2022 18:53-0400 Body weight 86.18 kg [facility] Work Phone: 01-12-2022 18:53-0400 Diastolic blood pressure 70 mm[Hg] [facility] Work Phone: 01-12-2022 18:53-0400 Heart rate 93 /min [facility] Work Phone: 01-12-2022 18:53-0400 Respiratory rate 18 /min [facility] Work Phone: 01-12-2022 18:53-0400 SaO2% (BldA) [Mass fraction] 98 % [facility] Work Phone: 01-12-2022 18:53-0400 Systolic blood pressure 100 mm[Hg] [facility] Work Phone: Encounters Encounter Date Encounter Type Care Provider Facility Start: 07-30-2025 End: 07-30-2025 ambulatory Lesia Story CHILD'S NURSE Facility:[facility] Start: 07-25-2025 End: 07-25-2025 ambulatory Lesia Story CHILD'S NURSE-C Work Phone: [facility] Start: 07-23-2025 Registered Referred HEALTH RIS K ASSESSMENT [facility] Start: 07-23-2025 ambulatory Health Risk Assessment Facility:[facility] Start: 07-08-2025 End: 07-08-[address] Ashu Rodriguez DO -[facility] Work Phone: Start: 07-08-2025 End: 07-08-2025 ambulatory Lesia Story CHILD'S NURSE-C Work Phone: -[facility] Start: 03-19-2025 End: 03-19-2025 Refill Alejandra YAÑEZC Work Phone: [facility] Comment on above: Refill Request Start: 01-10-2025 End: 01-10-2025 ambulatory Lesia Story CHILD'S NURSE-C Work Phone: -Physical Therapy Start: 01-10-2025 End: 01-10-[address] Ashu Rodriguez DO -Physical Therapy Work Phone: Start: 11-21-2024 End: 11-21-2024 ambulatory Lesia Story [place]: 11-20-2024 End: 11-20-2024 ambulatory Ashu Rodriguez Facility:[facility] Start: 11-18-2023 Refill Alejandra Arambula PA-C Work Phone: [facility] Comment on above: Refill Request Start: 10-25-2023 End: 10-25-2023 ambulatory [facility] Work Phone: Start: 10-25-2023 End: 10-25-2023 Patient encounter procedure [facility]-Outpatient Bone Densitometry Work Phone: Start: 09-19-2023 End: 09-19-2023 ambulatory [facility] Work Phone: Start: 09-19-2023 End: 09-19-2023 Patient encounter procedure [facility]-MRI - [facility] Work Phone: Start: 08-18-2023 End: 08-18-2023 ambulatory [facility] Work Phone: Start: 08-18-2023 End: 08-18-2023 Discharged Recurring [facility]-Physical Therapy Work Phone: Start: 08-18-2023 Registered Recurring [facility]-Physical Therapy Work Phone: Start: 07-29-2023 Registered Referred [facility] Start: 03-17-2023 End: 03-17-2023 ambulatory [facility] Work Phone: Start: 03-17-2023 End: 03-17-2023 Patient encounter procedure [facility]-Outpatient Breast Imaging Start: 03-14-2023 End: 03-14-2023 ambulatory [facility] Work Phone: Start: 03-14-2023 End: 03-14-2023 Patient encounter procedure [facility]-Radiology, H Start: 02-28-2023 End: 02-28-2023 ambulatory [facility] Work Phone: Start: 02-28-2023 End: 02-28-2023 Patient encounter procedure [facility]-Radiology, [facility] Start: 12-23-2022 End: 12-23-2022 ambulatory CHILD'S NURSE-Vy Story CHILD'S NURSE Work Phone: [facility] Work Phone: Start: 12-23-2022 End: 12-23-2022 Patient encounter procedure CHILD'S NURSE-Vy Story CHILD'S NURSE Work Phone: [facility]-Ultrasound, [facility] Start: 12-22-2022 End: 12-22-2022 Patient encounter procedure Alejandra Arambula PA-C Work Phone: [facility] Comment on above: Pelvic pain in femal e (Primary Dx); Vaginal discharge; Acute vaginitis; Abdominal bloating; Cyst of left ovary Start: 10-20-2022 End: 10-20-2022 Patient encounter procedure ML Story CHILD'S NURSE Work Phone: [facility] Start: 09-27-2022 ambulatory Alejandra Arambula PA-C Work Phone: [facility] Comment on above: [place] Start: 09-01-2022 End: 09-01-2022 Patient encounter procedure Alejandra Arambula PA-C Work Phone: [facility] Comment on above: Women's annual routi ne gynecological examination (Primary Dx); Screening for malignant neoplasm of cervix; Breast cancer screening by mammogram; Encounter for colorectal cancer screening; Perimenopausal; Irregular bleeding; Uterine leiomyoma, unspecified location; Hormone disturbance; Genital herpes simplex, unspecified site Start: 08-11-2022 Refill Alejandra Arambula PA-C Work Phone: [facility] Comment on above: Refill Request Start: 08-06-2022 End: 08-06-2022 ambulatory CHILD'S NURSE-Vy Story CHILD'S NURSE Work Phone: [facility] Work Phone: Start: 08-06-2022 End: 08-06-2022 Patient encounter procedure CHILD'S NURSE-Vy Story CHILD'S NURSE Work Phone: [facility]-Laboratory Start: 07-28-2022 Registered Referred CHILD'S NURSE-Vy Story CHILD'S NURSE Work Phone: [facility] Start: 06-10-2022 Registered Recurring CHILD'S NURSE-C Lesia Story CHILD'S NURSE Work Phone: [facility]-Physical Therapy Start: 05-03-2022 End: 05-03-2022 Patient encounter procedure CHILD'S NURSE-C Lesia Story CHILD'S NURSE Work Phone: [facility] Start: 04-19-2022 End: 04-19-2022 Patient encounter procedure CHILD'S NURSE-C Lesia Story CHILD'S NURSE Work Phone: [facility] Start: 03-16-2022 End: 03-16-2022 Patient encounter procedure CHILD'S NURSE-C Lesia Story CHILD'S NURSE Work Phone: [facility] Start: 03-12-2022 End: 03-12-2022 Patient encounter procedure CHILD'S NURSE-C Lesia Story CHILD'S NURSE Work Phone: [facility] Start: 03-03-2022 Registered Recurring CHILD'S NURSE-C Lesia Story CHILD'S NURSE Work Phone: [facility]-Physical Therapy Start: 02-17-2022 End: 02-17-2022 Patient encounter procedure CHILD'S NURSE-C Lesia Story CHILD'S NURSE Work Phone: [facility] Start: 01-28-2022 End: 01-28-2022 Patient encounter procedure CHILD'S NURSE-C Lesia Story CHILD'S NURSE Work Phone: [facility] Start: 01-21-2022 End: 01-21-2022 Patient encounter procedure CHILD'S NURSE-C Lesia Story CHILD'S NURSE Work Phone: [facility] Start: 01-14-2022 End: 01-14-2022 Patient encounter procedure [facility]-Radiology, [facility] Start: 07-28-2021 Patient encounter status [facility] Start: 12-01-2018 End: 12-01-2018 Patient encounter status Alejandra Arambula PA-C Work Phone: [facility] Start: 01-17-2018 Ambulatory Rajani Mayorga [facility] Start: 04-06-2017 Ambulatory [facility] Facility: [facility] Procedures Date Procedure Procedure Detail Performing Clinician Start: 07-23-2025 Urnls dip stick/tabl et reagent auto microscopy Lesia Story CHILD'S NURSE-C Work Phone: Start: 07-23-2025 Serum inorganic phos phate measurement Lesia Story CHILD'S NURSE-C Work Phone: Start: 10-25-2023 Dual energy X-ray absorptiometry Start: 09-19-2023 MRI of lumbar spine Start: 03-17-2023 Screening mammography Start: 03-14-2023 Plain x-ray of pelvi s and lower extremity Start: 02-28-2023 X-ray of cervical spine Start: 02-28-2023 X-ray of lumbosacral spine Start: 12-23-2022 Pelvic echography CHILD'S NURSE-C Lesia Jez CHILD'S NURSE Work Phone: Start: 04-19-2022 MRI of upper limb CHILD'S NURSE-C Lesia Story CHILD'S NURSE Work Phone: Start: 03-16-2022 Plain x-ray of humerus CHILD'S NURSE-C Lesia Story CHILD'S NURSE Work Phone: Start: 01-28-2022 MRI of joint of lowe r extremity CHILD'S NURSE-C Lesia Story CHILD'S NURSE Work Phone: Start: 01-14-2022 Plain X-ray of shoulder Start: 03-21-2018 Lipid 1996 panel - S papo or Plasma Alejandra Arambula PA-C Work Phone: Start: 01-17-2018 Mammography Alejandra ramirez PA-C Work Phone: Plan of Treatment Date Care Activity Detail Author Start: 07-02-2029 Urine microalbumin profile [facility] Start: 10-24-2028 Screening for malign ant neoplasm of cervix [facility] Start: 09-01-2027 PAP TESTING PAP TESTING [facility] Start: 07-01-2026 PAP TESTING PAP TESTING [facility] Start: 09-01-2025 COLOGUARD (FIT-DNA) COLOGUARD (FIT-D NA) [facility] Start: 09-01-2025 COLORECTAL CANCER SCREENING COLORECTAL CANCER SCREENING [facility] Start: 09-01-2025 Screening for malign ant neoplasm of colon [facility] Start: 07-30-2025 Screening mammography SCRN MALKA M (CAD)W/ALEX BILAT [facility] Start: 07-30-2025 End: 07-30-2025 Patient encounter procedure [facility] -Outpatient Breast Imaging Work Phone: Start: 07-25-2025 Thyroid stimulating hormone measurement [facility] Start: 07-25-2025 Vitamin D, 1,25-dihydroxy measurement [facility] Start: 06-10-2025 Influenza vaccination Influenz a Vaccine (Season Ended) [facility] Start: 06-10-2024 Covid-19 Vaccine ( season) Covid-19 Vaccine ( season) [facility] Start: 03-17-2024 Screening for malign ant neoplasm of breast Mammogram Screening [facility] Start: 12-01-2023 HPV TESTING HPV TESTING [facility] Start: 12-01-2023 Screening for malign ant neoplasm of cervix HPV Testing [facility] Start: 2023 Pneumococcal Vaccine : 50+ (1 of 1 - PCV) Pneumococcal Vaccine: 50+ (1 of 1 - PCV) [facility] Start: 2023 Shingrix Vaccine (1 of 2) Shingrix Vaccine (1 of 2) [facility] Start: 06-10-2023 Influenza vaccination Influenza Vacc ine (#1) [facility] Start: 04-08-2023 Influenza vaccination INFLUENZA (#1) [facility] Comment on above: Postponed from 06/10 (Declined at this time) Start: 03-21-2023 Lipid panel Lipid Screening [facility] Start: 03-21-2023 LIPID SCREEN LIPID SCREEN [facility] Start: 02-23-2023 Patient referral James wheeler [facility] Work Phone: Start: 12-22-2022 End: 02-21-2023 Cancer Ag 125 [Units/volume] in Serum or Plasma CA 125 BLD Lab Routine Pelvic pain in female Abdominal bloating Cyst of left ovary Expected: 12/22/2022, Expires: 02/21/2023 [employer] Phone: Comment on above: Expected: 12/22/2022 , Expires: 02/21/2023 Start: 12-22-2022 End: 02-21-2023 CULTURE, AEROBIC BACTERIA CULTURE, AEROBIC BACTERIA Microbiology Routine Vaginal discharge Acute vaginitis Expected: 12/22/2022, Expires: 02/21/2023 [employer] Phone: Comment on above: Expected: 12/22/2022 , Expires: 02/21/2023 Start: 12-22-2022 End: 02-21-2023 Fungus identified in Unspecified specimen by Culture FUNGAL CULTURE Microbiology Routine Vaginal discharge Acute vaginitis Expected: 12/22/2022, Expires: 02/21/2023 [employer] Phone: Comment on above: Expected: 12/22/2022 , Expires: 02/21/2023 Start: 06-10-2022 Influenza vaccination INFLUENZA (#1) [facility] Start: 03-21-2021 DIABETES SCREEN DIABETES SCREEN [facility] Start: 03-21-2021 Diabetes Screening Diabetes Screenin g [facility] Start: 01-17-2019 Mammography MAMMOGRAM [facility] Start: 2018 COLOGUARD (FIT-DNA) COLOGUARD (FIT-D NA) [facility] Start: 2018 Colonoscopy COLONOSCOPY [facility] Start: 2018 COLORECTAL CANCER SCREENING COLORECTAL CANCER SCREENING [facility] Start: [address] COLONOGRAPHY [facility] Start: 2018 FECAL OCCULT BLOOD FECAL OCCULT BLOO D [facility] Start: 2018 Screening for malign ant neoplasm of colon [facility] Start: 2018 SIGMOIDOSCOPY SIGMOIDOSCOPY [facility] Start: 1992 Hepatitis B Vaccine (1 of 3 - 19+ 3-dose series) Hepatitis B Vaccine (1 of 3 - 19+ 3-dose series) [facility] Start: 1991 HEPATITIS C SCREENING HEPATITIS C [facility] Start: 1991 Hepatitis C screening Hepatitis C [facility] Start: 1991 HIV SCREENING HIV SCREENING [facility] Start: 1991 HIV screening HIV Screening [facility] Start: 03-22-1974 COVID-19 VACCINE (#1) COVID-19 VACCI NE (#1) [facility] Start: 1973 HEPATITIS B (1 of 3 - 3-dose series) HEPATITIS B (1 of 3 - 3-dose series) [facility] Start: 1973 Hepatitis B Vaccine (1 of 3 - 3-dose series) Hepatitis B Vaccine (1 of 3 - 3-dose series) [facility] MG Breast - bilatera l Screening [facility] PAP REFLEX HPV MRNA WHEN ASCUS PAP REFLEX HPV MRNA WHEN ASCUS Lab Routine Women's annual routine gynecological examination Screening for malignant neoplasm of cervix Ordered: 09/01/2022 [facility] Work Phone: Comment on above: Ordered: 09/01/[address] [facility] Work Phone: Screening mammography [facility] End: 10-01-2023 Screening mammography bi 2-view breast inc cad MALKA SCREENING Radiology Routine Breast cancer screening by mammogram 1 Occurrences starting 09/01/2022 until 10/01/2023 [employer] Work Phone: Comment on above: 1 Occurrences starti ng 09/01/2022 until 10/01/2023 End: 01-21-2024 Us transvaginal US FEMALE PELVIS TRANSVAG Radiology Routine Pelvic pain in female Cyst of left ovary 1 Occurrences starting 12/22/2022 until 01/21/2024 [employer] Work Phone: Comment on above: 1 Occurrences starti ng 12/22/2022 until 01/21/2024 [facility] Immunization Date Immunization Notes Care Provider Fa cili 06-27-2020 influenza, injectabl e, quadrivalent, contains preservative Alejandra Arambula PA-C Work Phone: [facility] 06-27-2020 influenza virus vacc ine, unspecified formulation Alejandra Arambula PA-C Work Phone: [facility] 07-02-2019 influenza, injectabl e, quadrivalent, contains preservative Alejandra Arambula PA-C Work Phone: [facility] 07-02-2019 tetanus toxoid, redu sherry diphtheria toxoid, and acellular pertussis vaccine, adsorbed Alejandra Arambula PA-C Work Phone: [facility] 06-26-2018 influenza, injectabl e, quadrivalent, contains preservative Alejandra Arambula PA-C Work Phone: [facility] 06-05-2017 influenza, injectabl e, quadrivalent, preservative free Alejandra Arambula PA-C Work Phone: [facility] 07-12-2016 influenza, injectabl e, quadrivalent, preservative free Alejandra Arambula PA-C Work Phone: [facility] 11-25-2015 influenza, injectabl e, quadrivalent, preservative free Alejandra Arambula PA-C Work Phone: [facility] 07-02-2013 influenza virus vacc ine, split virus (incl. purified surface antigen) Alejandra Arambula PA-C Work Phone: [facility] 08-11-2012 influenza virus vacc ine, split virus (incl. purified surface antigen) Alejandra Arambula PA-C Work Phone: [facility] 03-20-2009 tetanus toxoid, redu sherry diphtheria toxoid, and acellular pertussis vaccine, adsorbed Alejandra Arambula PA-C Work Phone: [facility] Payers Date Payer Category Payer Self-pay [id number] 2024 Unknown [id number] 2019 Unknown Unknown [id number] Unknown [id number] Unknown [id number] [id number] [id number] Unknown [id number] [id number] [id number] Unknown [id number] [id number] [id number] Unknown [id number] 2.16.8 [id number] Unknown [id number] 2.16.8 [id number] Unknown [id number] [id number] [id number] Social History Date Type Detail Facility Start: 08-17-2019 End: 10-20-2022 Tobacco smoking status [facility] Unknown if ever smoked [facility] Start: 1975 Sex Assigned At Female W [facility] Start: 06-19-2016 End: 12-22-2022 Tobacco smoking status [facility] Ex-smoker [facility] History of tobacco use Current smoker [facility] Start: 06-19-2016 End: 12-22-2022 Tobacco use and exposure Smokeless tobacco non-user [facility] Start: 07-01-2021 End: 10-24-2023 Alcohol intake Current drinker of alcohol (finding) [facility] Start: 06-19-2016 Alcohol Comment weekly [facility] Start: 1975 Sex Assigned At Not on file [facility] Start: 08-22-2022 End: 09-01-2022 Exposure to SARS-CoV-2 (event) Not sure [facility] Start: 09-15-2020 End: 10-24-2023 History of Social function [facility] Work Phone: Start: 09-15-2020 End: 10-24-2023 Tobacco use panel [facility] Work Phone: Adult Depression Screening Assessment 0 [facility] Work Phone: Start: 11-20-2024 Tobacco smoking stat us NHIS Never smoked tobacco (finding) [facility] Clinical Notes 12-01-2018 to 07-25-2025 Note Date & Type Note Facility 07-25-2025 Progress note Note Date/Time July 25, 2025 8:29pm [facility] [address] [place] [address] OFFICE VISIT Date of Service: 07/25/25 MR#: [id number] Acct: [id number] Name: KETTY MALHOTRA Rep #: [id number] : 1975 Provider: ML Story Age/Sex: 49/F Location: [facility] Status: Signed Intake Vital Signs 01/07/25 18:30 07/25/25 20:23 Height 5 ft 4 in 5 ft 4 in Weight: 168 lb 167 lb BMI 28.8 28.6 BP 112/70 122/70 H Blood Pressure Location Rt brachial Rt brachial Position Sitting Sitting Respiration 18 18 Temp 98.1 F 97.5 F L Temp Source Surface Surface Pulse 90 88 Pulse Source Doppler Doppler Pulse Oximetry (%) 97 99 Oxygen Delivery Method room air room air Intake Visit Reasons: Annual wellness exam PE Accompanied by: Self Is patient in pain?: Yes Allergies Iodinated Contrast Media Allergy (Mild, Verified 07/08/25 08:41) Unknown lidocaine Allergy (Mild, Verified 07/08/25 08:41) HIVES Medications ?Medication ?Instructions ?Recorded ?Confirmed ?Type cholecalciferol (vitamin D3) 1,250 1,250 mcg PO QWEEK #12 caps 07/24/24 07/25/25 Rx mcg (50,000 unit) capsule bupropion HCl 150 mg 24 hr tablet, 150 mg PO QAM #90 t abs 07/25/25 07/25/25 Rx extended release cyclobenzaprine 10 mg tablet 10 mg PO HS #90 tabs 07/1007/25/25 Rx famotidine 20 mg tablet (Pepcid) 20 mg PO DAILY #90 ta bs 07/25/25 07/25/25 Rx hydroxyzine HCl 25 mg tablet 25 mg PO TID PRN hives #6 0 tabs 07/25/25 07/25/25 Rx loratadine 10 mg tablet (Claritin) 10 mg PO DAILY #90 tabs 07/25/25 07/25/25 Rx omeprazole 20 mg capsule,delayed 20 mg PO DAILY #90 ca ps 07/25/25 07/25/25 Rx release tramadol 50 mg tablet 50 mg PO BID PRN shoulder pa in. 07/25/25 07/25/25 Rx #60 tabs valacyclovir 500 mg tablet 500 mg PO DAILY #90 tabs 07/25/25 Rx (Valtrex) Is last menstrual period known: No Post menopausal: Yes Patient : No PFSH Medical History Perirectal abscess Ganglion cyst [...] frequency: a few times a month HPI HPI HPI HPI: KETTY MALHOTRA, is a 49 F who presents to the office today for Preventive care concerns that her shoulders are still bothering her and the injections did not help .thinking surgery. ROS Const Constitutional: No anorexia, body ache, chills, excessive sweating, fatigue, fever(s), frequent falls, headache(s), decreased energy, malaise, night sweats, snoring, weakness, weight change, sleep problems, abnormal sleep pattern, changein appetite or other Eyes Eyes: No blurry vision, change in vision, double vision, discharge, dry eyes, bulging eyes, floaters, visual disturbances, eye pain, Light sensitivity, spots invision, tunnel vision or other ENT ENT: No abnormal hearing, ear or mastoid pain, ear discharge, ear pressure, hearing loss, tinnitus, dizziness/vertigo, balance problems, nosebleed/epistaxis, nasal congestion, nasal obstruction, nose pain, sinus pressure, sinus pain, nasal discharge, post nasal drip, headache(s), facial pain, dental pain, dry mouth, difficulty swallowing, bad breath, hoarseness, lipswelling, mouth lesions, mouth pain, neck pain, sore throat, tongue swelling, throat swelling or other Resp Respiratory: No cough, change in phlegm color, chest congestion, excessive phlegm production, hemoptysis, pain on inspiration, shortness of breath, pain with cough, snoring, stridor, wheezing or other Cardio Cardiology: No chest pain at rest, chest pain with exertion, leg pain with exertion, excessive sweating, shortness of breath, dyspnea on exertion, generalized swelling, irregular heart rhythm, lightheadedness, orthopnea, radiating jaw, neck or arm pain, fast heart rate, slow heart rate, palpitations or other Gastro GI: No abdominal pain, No belching, No bloating, No change in bowel habits, No change in stool character, No coffee ground emesis, No constipation, No cramping, No diarrhea, No heartburn, No Difficulty Swallowing, No feeling full early, No excessive flatus, No incontinent of stools, No Vomiting blood/hematemesis, No Blood in stool, No loose stools, No Black,tarry stools, Nonausea/dyspepsia, No pain with swallowing, No vomiting, No hemorrhoids, No rectal pain and No other Genitourinary: No difficulty urinating, burning urination, painful urination, urinary frequency, urinary urgency or blood in urine Musc Musculoskeletal: No abnormal gait, joint pain, back pain, deformity, joint swelling, limited range of motion, loss of height, muscle cramps, muscle weakness, decreased muscle mass, myalgias, neck pain, numbness, radiating pain into limb, stiffness, tingling, restless legs, leg pain with exertion or other Skin Skin: No acne, hair loss in leg, change in hair, nail changes, boil, change in skin color, dry skin, redness, excessive hair growth, yellowing of the eye, lesions, itchy eyes, rash, skin pain, skin ulcer, sores, skin swelling, wounds or other Breast Breast: No other Neuro Neurology: No abnormal gait, abnormal hearing, abnormal movements, abnormal speech, behavioral changes, confusion, unsteady gait/balance, dizziness, weakness, frequent falls, headache(s), lack of coordination, loss of vision, memory loss, numbness, tingling, visual disturbances, restless legs, fainting, tremor(s) or other Psych Psychiatric: No abnormal sleep pattern, No lack of enjoyment, No anxiety, No behavioral changes, No change in appetite, No confusion, No depression, No difficulty concentrating, No hopelessness, No irritability, No memory loss, No mood swings, No panic attacks, No paranoia, No Thoughts of harming yourself/Others, No hallucinations and No other Endo Endo: No excessive sweating, No fatigue and No other Aller/Imm Allergy/Immunologic: No itchy eyes, lip swelling, throat swelling, tongue swelling or wheezing Exam Const Constitutional: Yes cooperative and Yes healthy appearing Orientation: Yes alert, awake and oriented x3 HENMT Head: Yes normocephalic Ear: Yes hearing grossly normal bilaterally TM-Right: normal TM-Left: normal Pinna-Right: within normal limits Pinna-Left: within normal limits Face: Yes normal facial exam Nose: Yes external nose normal Mouth: Yes oral mucosae normal Neck Neck: normal visual inspection Thyroid: thyroid normal Eyes General: Yes appearance normal, both eyes and all related structures Chest Chest palpation & inspection: Yes normal inspection of the chest Resp Effort & Inspection: No stridor Auscultation: Yes clear to auscultation bilaterally Cardio Palpitation: Yes normal PMI Rate: Yes regular rate Rhythm: Yes regular rhythm GI Inspection: Yes normal to inspection Auscultation: Yes normal bowel sounds Palpation: Yes soft and no hepatosplenomegaly Rectal Exam: No hemorrhoids General: Yes bladder normal to inspection and bladder normal to palpation; No CVA tenderness Bimanual Exam- Vagina & Uterus: bladder normal to palpation Musc Cervical Spine: Yes cervical ROM normal Thoracic/Lumbar Spine: Yes thoracic and lumbar spine normal to inspection Skin General: no rashes or lesions noted Lesions: Yes no lesions Extrem General: Yes normal to inspection Neuro General: Yes CN's II-XI intact bilaterally, alert, oriented x3 and deep tendon reflexes 2+ bilaterally Cranial Nerves: Yes CN's II-XI intact bilaterally Speech: Yes speech normal Gait: Yes normal gait Motor: No weakness Psych Appearance: Positive grossly normal Mood: Positive congruent mood Affect: Positive normal affect Speech and Movement: Yes speech and movement normal Attitude: Yes cooperative Thought Process: Yes normal Thought Content: Yes normal Judgment: Yes judgment good Coding Level of Care Code Off vis,est,prev 40-64yrs Diagnoses Wellness examination Z00.00 Assessment and Plan Assessment and Plan (1) Wellness examination: Status: Acute Orders: Orders SCRN MAMM (CAD)W/ALEX BILAT Today Z12.31 - Encounter for screening mammogram for malignant neoplasm of breast Vitamin D 1,25-Dihydroxy Today E55.9 - Vitamin D deficiency, unspecified, R53.83 - Other fatigue Thyroid Stim Hormone (TSH) Today E55.9 - Vitamin D deficiency, unspecified, R53.83 - Other fatigue Medications: New tramadol 50 mg PO BID PRN 60 tabs 5RF shoulder pain. valacyclovir (Valtrex) 500 mg PO DAILY 90 tabs 3RF Refilled bupropion HCl XL 150 mg PO QAM 90 tabs 3RF cyclobenzaprine 10 mg PO HS 90 tabs 3RF famotidine (Pepcid) 20 mg PO DAILY 90 tabs 3RF hydroxyzine HCl 25 mg PO TID PRN 60 tabs 3RF hives loratadine (Claritin) 10 mg PO DAILY 90 tabs 3RF omeprazole 20 mg PO DAILY 90 caps 3RF Discontinued norethindrone (contraceptive) ([place]) Discontinued Reason: Pt no longer taking 0.35 mg PO DAILY Patient Instructions: Forms filled out and signed 07/25/252028 <Electronically signed by Lesia Conklin on CHILD'S NURSE CHILD'S NURSE-C> Date _ Lesia Story NP CHILD'S NURSE-C CC: ~ [facility] Work Phone: [phone]) 388-274110-16-2025 Progress noteAfter Hours Family Medicine [address] [place] [address] OFFICE VISIT Date of Service: 07/25/25 MR#: [id number] Acct: [id number] Name: KETTY MALHOTRA Rep #: [id number] : 1975 Provider: ML Story Age/Sex: 49/F Location: [facility] Status: Signed Intake Vital Signs 01/07/25 18:30 07/25/25 20:23 Height 5 ft 4 in 5 ft 4 in Weight: 168 lb 167 lb BMI 28.8 28.6 BP 112/70 122/70 H Blood Pressure Location Rt brachial Rt brachial Position Sitting Sitting Respiration 18 18 Temp 98.1 F 97.5 F L Temp Source Surface Surface Pulse 90 88 Pulse Source Doppler Doppler Pulse Oximetry (%) 97 99 Oxygen Delivery Method room air room air Intake Visit Reasons: Annual wellness exam PE Accompanied by: Self Is patient in pain?: Yes Allergies Iodinated Contrast Media Allergy (Mild, Verified 07/08/25 08:41) Unknown lidocaine Allergy (Mild, Verified 07/08/25 08:41) HIVES Medications ?Medication ?Instructions ?Recorded ?Confirmed ?Type cholecalciferol (vitamin D3) 1,250 1,250 mcg PO QWEEK #12 caps 07/24/24 07/25/25 Rx mcg (50,000 unit) capsule bupropion HCl 150 mg 24 hr tablet, 150 mg PO QAM #90 t abs 07/25/25 07/25/25 Rx extended release cyclobenzaprine 10 mg tablet 10 mg PO HS #90 tabs 07/1007/25/25 Rx famotidine 20 mg tablet (Pepcid) 20 mg PO DAILY #90 ta bs 07/25/25 07/25/25 Rx hydroxyzine HCl 25 mg tablet 25 mg PO TID PRN hives #6 0 tabs 07/25/25 07/25/25 Rx loratadine 10 mg tablet (Claritin) 10 mg PO DAILY #90 tabs 07/25/25 07/25/25 Rx omeprazole 20 mg capsule,delayed 20 mg PO DAILY #90 ca ps 07/25/25 07/25/25 Rx release tramadol 50 mg tablet 50 mg PO BID PRN shoulder pa in. 07/25/25 07/25/25 Rx #60 tabs valacyclovir 500 mg tablet 500 mg PO DAILY #90 tabs 07/25/25 Rx (Valtrex) Is last menstrual period known: No Post menopausal: Yes Patient : No PFSH Medical History Perirectal abscess Ganglion cyst [...] frequency: a few times a month HPI HPI HPI HPI: KETTY MALHOTRA, is a 49 F who presents to the office today for Preventive care concerns that her shoulders are still bothering her and the injections did not help .thinking surgery. ROS Const Constitutional: No anorexia, body ache, chills, excessive sweating, fatigue, fever(s), frequent falls, headache(s), decreased energy, malaise, night sweats, snoring, weakness, weight change, sleep problems, abnormal sleep pattern, changein appetite or other Eyes Eyes: No blurry vision, change in vision, double vision, discharge, dry eyes, bulging eyes, floaters, visual disturbances, eye pain, Light sensitivity, spots invision, tunnel vision or other ENT ENT: No abnormal hearing, ear or mastoid pain, ear discharge, ear pressure, hearing loss, tinnitus,dizziness/vertigo, balance problems, nosebleed/epistaxis, nasal congestion, nasal obstruction, nosepain, sinus pressure, sinus pain, nasal discharge, post nasal drip, headache(s), facial pain, dental pain, dry mouth, difficulty swallowing, bad breath, hoarseness, lipswelling, mouth lesions, mouth pain, neck pain, sore throat, tongue swelling, throat swelling or other Resp Respiratory: No cough, change in phlegm color, chest congestion, excessive phlegm production, hemoptysis, pain on inspiration, shortness of breath, pain with cough, snoring, stridor, wheezing or other Cardio Cardiology: No chest pain at rest, chest pain with exertion, leg pain with exertion, excessive sweating, shortness of breath, dyspnea on exertion, generalized swelling, irregular heart rhythm, lightheadedness, orthopnea, radiating jaw, neck or arm pain, fast heart rate, slow heart rate, palpitations or other Gastro GI: No abdominal pain, No belching, No bloating, No change in bowel habits, No change in stool character, No coffee ground emesis, No constipation, No cramping, No diarrhea, No heartburn, No Difficulty Swallowing, No feeling full early, No excessive flatus, No incontinent of stools, No Vomiting bloo d/hematemesis, No Blood in stool, No loose stools, No Black,tarry stools, Nonausea/dyspepsia, No pain with swallowing, No vomiting, No hemorrhoids, No rectal pain and No other Genitourinary: No difficulty urinating, burning urination, painful urination, urinary frequency, urinary urgency or blood in urine Musc Musculoskeletal: No abnormal gait, joint pain, back pain, deformity, joint swelling, limited range of motion, loss of height, muscle cramps, muscle weakness, decreased muscle mass, myalgias, neck pain, numbness, radiating pain into limb, stiffness, tingling, restless legs, leg pain with exertion orother Skin Skin: No acne, hair loss in leg, change in hair, nail changes, boil, change in skin color, dry skin, redness, excessive hair growth, yellowing of the eye, lesions, itchy eyes, rash, skin pain, skin ulcer, sores, skin swelling, wounds or other Breast Breast: No other Neuro Neurology: No abnormal gait, abnormal hearing, abnormal movements, abnormal speech, behavioral changes, confusion, unsteady gait/balance, dizziness, weakness, frequent falls, headache(s), lack of coordination, loss of vision, memory loss, numbness, tingling, visual disturbances, restless legs, fainting, tremor(s) or other Psych Psychiatric: No abnormal sleep pattern, No lack of enjoyment, No anxiety, No behavioral changes, Nochange in appetite, No confusion, No depression, No difficulty concentrating, No hopelessness, No irritability, No memory loss, No mood swings, No panic attacks, No paranoia, No Thoughts of harming yo urself/Others, No hallucinations and No other Endo Endo: No excessive sweating, No fatigue and No other Aller/Imm Allergy/Immunologic: No itchy eyes, lip swelling, throat swelling, tongue swelling or wheezing Exam Const Constitutional: Yes cooperative and Yes healthy appearing Orientation: Yes alert, awake and oriented x3 HENMT Head: Yes normocephalic Ear: Yes hearing grossly normal bilaterally TM-Right: normal TM-Left: normal Pinna-Right: within normal limits Pinna-Left: within normal limits Face: Yes normal facial exam Nose: Yes external nose normal Mouth: Yes oral mucosae normal Neck Neck: normal visual inspection Thyroid: thyroid normal Eyes General: Yes appearance normal, both eyes and all related structures Chest Chest palpation & inspection: Yes normal inspection of the chest Resp Effort & Inspection: No stridor Auscultation: Yes clear to auscultation bilaterally Cardio Palpitation: Yes normal PMI Rate: Yes regular rate Rhythm: Yes regular rhythm GI Inspection: Yes normal to inspection Auscultation: Yes normal bowel sounds Palpation: Yes soft and no hepatosplenomegaly Rectal Exam: No hemorrhoids General: Yes bladder normal to inspection and bladder normal to palpation; No CVA tenderness Bimanual Exam- Vagina & Uterus: bladder normal to palpation Musc Cervical Spine: Yes cervical ROM normal Thoracic/Lumbar Spine: Yes thoracic and lumbar spine normal to inspection Skin General: no rashes or lesions noted Lesions: Yes no lesions Extrem General: Yes normal to inspection Neuro General: Yes CN's II-XI intact bilaterally, alert, oriented x3 and deep tendon reflexes 2+ bilaterally Cranial Nerves: Yes CN's II-XI intact bilaterally Speech: Yes speech normal Gait: Yes normal gait Motor: No weakness Psych Appearance: Positive grossly normal Mood: Positive congruent mood Affect: Positive normal affect Speech and Movement: Yes speech and movement normal Attitude: Yes cooperative Thought Process: Yes normal Thought Content: Yes normal Judgment: Yes judgment good Coding Level of Care Code Off vis,est,prev 40-64yrs Diagnoses Wellness examination Z00.00 Assessment and Plan Assessment and Plan (1) Wellness examination: Status: Acute Orders: Orders SCRN MAMM (CAD)W/ALEX BILAT Today Z12.31 - Encounter for screening mammogram for malignant neoplasmof breast Vitamin D 1,25-Dihydroxy Today E55.9 - Vitamin D deficiency, unspecified, R53.83 - Other fatigue Thyroid Stim Hormone (TSH) Today E55.9 - Vitamin D deficiency, unspecified, R53.83 - Other fatigue Medications: New tramadol 50 mg PO BID PRN 60 tabs 5RF shoulder pain. valacyclovir (Valtrex) 500 mg PO DAILY 90 tabs 3RF Refilled bupropion HCl XL 150 mg PO QAM 90 tabs 3RF cyclobenzaprine 10 mg PO HS 90 tabs 3RF famotidine (Pepcid) 20 mg PO DAILY 90 tabs 3RF hydroxyzine HCl 25 mg PO TID PRN 60 tabs 3RF hives loratadine (Claritin) 10 mg PO DAILY 90 tabs 3RF omeprazole 20 mg PO DAILY 90 caps 3RF Discontinued norethindrone (contraceptive) ([place]) Discontinued Reason: Pt no longer taking 0.35 mg PO DAILY Patient Instructions: Forms filled out and signed 07/25/252028 on CHILD'S NURSE CHILD'S NURSE-C> Date _ Lesia Story CHILD'S NURSE CHILD'S NURSE-C CC: ~ [facility]09-29-2025 Evaluation note* Diagnosis Onset Date Resolution Status Admit Date Bilateral shoulder bursitis acute July 08, 2025 8:36am Wellness examination acute 2024 7:00pm [facility] Work Phone: [phone]) 244-179609-29-2025 [facility] [address] [place] [id number] OFFICE VISIT Date of Service: 07/08/25 MR#: [id number] Acct: [id number] Name: KETTY MALHOTRA Anabella Rep #: [id number] : 1975 Provider: Dr. Parish Rodriguez DO Age/Sex: 49/F [place] [facility] [place] Status: Signed Intake Vital Signs 01/07/25 18:30 [...] shoulder pain. The pain is mostly on theanterior aspect of the shoulder. She states the injectionsin November were helpful and she would like to proceed with them again today. She did PT in November and she reports this was helpful and shewould be open todo this again. 11/21/2024 visit: [...] her arms at times. 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 Patient has bee having left shoulder pain for years. She has had injections many years ago. Her pain is worse with overhead movement or any movement behind her back. Her pain is over the top of her should and lateral arm. Shedenies any previous surgery or injury. She does [...] is requesting tohave bilateral shoulder injections she hashad these in the right side in the [...] point I would recommend physical therapy for bilateralshoulder complaints as well as cervical pain and [...] for right shoulder. I last saw her forthis problem 10/20/2022 and she received a subacromial injection and a biceps tendon sheath injection she did have an MRI of her shoulder (Supraspinatus infraspinatus tendinosis without rotator cuff tear. Tendinosis of long head biceps tendon. Subacromial bursitis. and humerus (normal). Patient rates her pain a 7/10 today. Patient states the injection gaveher relief for a long time. Patient deniesany recent falls or injuries to the right shoulder that made the pain come back. Patient states [place] to work on back exercises and she does try some stuff forher shoulder but she states she has trouble with some arm exercises and lifting.Patient states she does take Ibuprofen for the pain when she needs. She is prescribed Tramadol for her back but she doesn't take iton a regular basis. Patient states the pain in the shoulder is pretty much the same pain that has damon thered her before. She states most of the pain is where the biceps tendon attaches rather than the joint space. She describes most of the pain over her anterior and anteriorlateral shoulder. Patient states the pain sounds like popcorn in the shoulder. She states the shoulder hurts mostly all of thetime. 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 and uses her [...] Performing Provider: Ashu Rodriguez DO Performing Location: [facility] Administered by: Ashu Rodriguez DO on 07/08/25 08:51 Dose Route Admin Location Dispensed Lot Number Expiration Date Pack age [facility] [place] Certified Welding Inspector 80 mg intra-articular bilateral subacromial 2 mL [id number] 06/10/27 0 009-0280-03 [id number] [facility] Supplemental Info 11/20/2024 x-ray left shoulder: Mild [...] Bilateral shoulder bursitis M75.51; M75.52 CPT Codes it quality analyst.sub (40955) Assessment and Plan Assessment and Plan (1) [...] option. Once again the left shoulder seems tracy similar but to a lesser degree seems to be more rotator cuff irritation than biceps but definitely both are involved I did offer her an MRI of the left shoulder as she has not had this in the pastbut she would like to hold off and just do an injection today. Patient tolerated bilateral subacromial steroid injections today well. 07/08/25 0905 o DO> Date _ Ashu Rene Signature: Date (if applicable) CC: ~ [facility]07-07-2025 Discharge summary Author Chris Hernandez [facility] Note Date/Time April 15, 2025 2:31p m [facility] [address] [place] [address] / REHABILITATION SERVICES DISCHARGE SUMMARY MR#: [id number] Acct: [id number] Name: KETTY MALHOTRA Rep #: [id number] : 1975 49 From: Chris Hernandez PT, ATC Referring Dr.: Dr. Ashu Rodriguez, DO Status: REG RCR Insurance: [employer]/[facility] SELF PAY INSURANCE Patient Information Patient Information: [...] ML Story; Dr. Ashu Rodriguez, DO ~ [facility] Signed [facility] Work Phone: 1(449) 992-214107-07-2025 Discharge summary [facility] [address] [place] [address]. [address] [place] [address] / REHABILITATION SERVICES DISCHARGE SUMMARY MR#: [id number] Acct: [id number] Name: KETTY MALHOTRA Rep #: [id number] : 1975 49 From: Chris Hernandez PT, ATC Referring Dr.: Dr. Ashu Rodriguez, Status: REG RCR [facility] SELF [facility]Y INSURANCE Patient Information Patient Information: [...] appropriate by the physician. Thank you! Chris Hernandez, PT, ATC Balance/Gait/Functional tests Balance/Special Test Scores Oswestry Neck Score: 13 04/15/25 1431 CC: ML Story; Dr. Ashu Rodriguez, DO ~ [facility] Signed [facility]06-10-2025 Telephone encounter Note* Telephone Encounter - Alejandra Arambula PA-C - 03/19/2025 5:38 PM EDT Pt is overdue for annual; please call to schedule. Sent last refill. Alejandra Arambula PA-C [facility]06-10-2025 Miscellaneous Notes* Telephone Encounter - Alejandra Arambula PA-C - 03/19/2025 5:38 PM EDT Pt is overdue for annual; please call to schedule. Sent last refill. Alejandra Armabula PA-C documented [facility]02-[facility] Miscellaneous Notes* Telephone Encounter - Alejandra Arambula PA-C - 11/18/2023 2:57 PM EST Pt had annual last month. Alejandra Arambula PA-C documented in this encounterE[facility]03-[facility] History of Present illness Narrative* Alejandra Arambula PA-C - 12/22/2022 11:18 AM EDT SUBJECTIVE: Ketty Malhotra is a 47 year old female who c/o excruciating left sided abdominal pain; first noticed 12/14/22. She had an ultrasound done at work and needs an official ultrasound because her it showed a thick walled [...] PERCUTANEOUS LUMBAR DISKECTOMY 2013 S BALLOON,UTERINE ABLATION [address] 12/02/2011 TUBAL LIGATION Social History Tobacco Use [...] DAY 60 August 17, 2019 8:49am 08-17-2019 [facility] ([id number]) loratadine (CLARITIN) 10 mg tablet 10 mg. cyclobenzaprine (FLEXERIL) 10 mg tablet Take 1 tablet by mouth twice daily as needed. No current facility-administered medications for this visit. ALLERGIES Allergen Reactions Ampicillin Unknown Ivp Dye [Iodine] Itching sneezing Lidocaine Hives Iodinated Contrast * Unknown OBJECTIVE BP 114/76 Ht 5' 4 (1.63m) Wt 192 lb (87.1kg) BMI 32.94 [...] 09/01/2023) for Annual Exam. documented in this encounterE[facility]12-19-2022 Miscellaneous Notes* Telephone Encounter - Alejandra Armabula PA-C - 09/27/2022 11:59 AM EST This [...] seven days of my reply. See the IOCS message reply for my assessment and plan. I spent a total of 5 minutes reviewing the patient's prior medical records and current request for medical advice, prescribing medications or ordering tests (if applicable), replying to the patient, and documenting the encounter. documented in this encounterElyria [facility]11-23-2022 History of Present illness Narrative* Alejandra [...] PERCUTANEOUS LUMBAR DISKECTOMY 2013 S BALLOON,UTERINE ABLATION [address] 12/02/2011 TUBAL LIGATION Social History Tobacco Use [...] DAY 60 August 17, 2019 8:49am 08-17-2019 [facility] ([id number]) loratadine (CLARITIN) 10 mg tablet 10 mg. [...] No history of dysuria, frequency or incontinence PERSONAL DEVELOPMENT COACH: Negative for abnormal vaginal bleeding, abnormal vaginal discharge or Breast symptoms ENDOCRINE: Negative for cold or heat intolerance, polyuria, polydipsia and goiter NEURO: No history of headaches, syncope, paralysis, seizures or tremors OBJECTIVE BP 124/78 Ht 5' 4 (1.63m) Wt 189 lb (85.7kg) BMI 32.43 [...] 09/01/2023) for Annual Exam. documented in this encounterE[facility]11-02-2022 Miscellaneous Notes* Telephone Encounter - Alejandra Arambula PA-C - 08/11/2022 2:43 PM EDT Pt is scheduled for annual this month. Alejandra Arambula PA-C documented in this encounterElyria [facility]09-22-2021 NoteHNO ID: [id number] Author: Alejandra Arambula PA-C Service: ? Author Type: Physician Tree Care Foreman Type: Progress Notes Filed: 07/01/2021 12:40 PM [...] Carpal tunnel decomp - S BALLOON,UTERINE ABLATION [address]674 12/02/2011 - TUBAL LIGATION Social History Tobacco [...] DAY 60 August 17, 2019 8:49am 08-17-2019 [facility] ([id number]) - loratadine (CLARITIN) 10 mg tablet 10 [...] No history of dysuria, frequency or incontinence PERSONAL DEVELOPMENT COACH: Negative for abnormal vaginal bleeding, abnormal vaginal discharge or Breast symptoms ENDOCRINE: Negative for cold or heat intolerance, polyuria, polydipsia and goiter NEURO: No history of headaches, syncope, paralysis, seizures or tremors OBJECTIVE BP 120/70 Ht 5' 4 (1.63m) Wt 186 lb (84.4kg) LMP 06/03/2021 [...] Z12.4 - Completed pap (more content not included)...[facility] 05-01-2021 NotePatient Outreach (INTMMN) KETTY MALHOTRA ([id number]) 1975 F Date Time Provider Department 05/01/21 [...] for screening mammogram for breast cancer [Z12.31] Order(s):[facility] SCREENING [6091333] Order #: [id number] FUTURE Prescriptions as of 05/04/2021 - famotidine (PEPCID) 20 mg tablet Famotidine Famotidine Active 20 MG PO TWICE A DAY 60 August 17, 2019 8:49am 08-17-2019 [facility] ([id number]) - loratadine (CLARITIN) 10 mg tablet 10 [...] syndrome of right shou*10/12/2016 Encounter Status:Closed by Aprilage, PRODUSER on 05/04/21[facility] 01-21-2021 NoteHNO ID: [id number] Author: Alejandra Arambula Service: ? Author Type: Physician Tree Care Foreman Type: Progress Notes Filed: 01/21/2021 12:41 PM Note Text: SUBJECTIVE: Ketty Malhotra is a 45 year old female who c/o irregular bleeding. Patient's last menstrual period was 01/13/2021 (exact date). Pt states this was a full blown period lasting 7 days, moderate bleeding, +dysmenorrhea the [...] recent steroid/antibiotic use. Reviewed pelvic US from [facility]: Uterus with anterior/fundal fibroid [id number], endo 5.1mm. Right ovary appears wnl. Left [...] smear of cervix 10/2014 ascus/-HPV /16 ascus/-HPV - Arthritis - Depression - Genital [...] Carpal tunnel decomp - S BALLOON,UTERINE ABLATION [address] 12/02/2011 - TUBAL LIGATION Social History Tobacco [...] DAY 60 August 17, 2019 8:49am 08-17-2019 [facility] ([id number]) - loratadine (CLARITIN) 10 mg tablet 10 [...] * Unknown OBJECTIVE BP 128/74 Ht 5' 4 (1.63m) Wt 192 lb (87.1kg) LMP 01/13/2021 BMI 32.94 kg/(m2). No exam today. ASSESSMENT/PLAN: 1. Irregular bleeding - ICD9: 626.4, ICD10: N92.6 (primary diagnosis) 2. Dysmenorrhea - ICD9: 625.3, ICD10: N94.6 3. Fibroids - ICD9: 215.9, ICD10: D21.9 4. Perimenopausal - ICD9: 627.2, ICD10: N95.1 Alejandra Arambula PA-C Return in about 4 months (around 05/14/2021) for Annual Exam.[facility]02-22-2019 History of Past illness Narrative* Problem Noted [...] of this encounter (statuses as of 08/11/2022) [facility]02-[facility] History of Past illness Narrative* Problem [...] of this encounter (statuses as of 09/01/2022) [facility] History of Past illness Narrative* Problem [...] of this encounter (statuses as of 09/27/2022) [facility] History of Past illness Narrative* Problem [...] of this encounter (statuses as of 12/22/2022) [facility] History of Past illness Narrative* Problem [...] of this encounter (statuses as of 11/18/2023) [facility]* Diagnosis Onset Date Resolution Status Right shoulder tendonitis ac [place] Shoulder pain, right acute [facility] Work Phone: evaluation note* Diagnosis Onset Date Resolution Status Right shoulder tendonitis ac [place] Shoulder pain, right acute Impingement syndrome of right shoulder acute Shoulder pain, right acute Allergic reaction caused by a drug acute Hives acute [facility] Work Phone: evaluation note* Diagnosis Onset Date Resolution Status Right shoulder tendonitis ac [place] Shoulder pain, right acute Impingement syndrome of right shoulder acute Shoulder pain, right acute Allergic reaction caused by a drug acute Hives acute Allergic reaction caused by a drug acute Biceps tendonitis on right a cute Shoulder pain, right acute Arm pain, chronic acute [facility] Work Phone: Evaluation note* Diagnosis Irregular bleeding Irregular menstrual cycle documented in this encounter [facility] note* Diagnosis Onset Date Resolution Status Biceps tendonitis on right a cute Right shoulder tendonitis ac [place] Wellness examination acute [facility] Work Phone: Evaluation note* Diagnosis Women's annual [...] simplex, unspecified site documented [facility] this encounter [facility]* Diagnosis Pelvic pain in female- Primary Unspecified symptom associated with female genital organs Vaginal discharge Leukorrhea, not specified as infective Acute vaginitis Vaginitis and vulvovaginitis, unspecified Abdominal bloating Flatulence, eructation, and gas pain Cyst of left ovary Other and unspecified ovarian cyst documented in this encounter [facility]* Diagnosis Onset Date Resolution Status Biceps tendonitis on right a cute Right shoulder tendonitis ac [place] [facility] Work Phone: Evaluation note* Diagnosis Onset Date Resolution Status Cervical strain acute Left sided sciatica acute [facility] Work Phone: Evaluation note* Diagnosis Onset Date Resolution Status Wellness examination acute [facility] Work Phone: Evaluation note* Diagnosis Genital herpes simplex, unspecified site documented in this encounter [facility]* Diagnosis Genital herpes simplex, unspecified site documented in this encounter [facility] noteNo assessment information availableWCleveland Clinic [facility] Work Phone: Evaluation note* Diagnosis Onset Date Resolution Status Admit Date Bilateral shoulder bursitis acute July 08, 2025 8:36am [facility] Work Phone: Progress note Author Ashu Rodriguez [facility] Note Date/Time July 08, 2025 9:05am [facility] [address] [place] [address] OFFICE VISIT Date of Service: 07/08/25 MR#: [id number] Acct: [id number] Name: KETTY MALHOTRA Anabella Rep #: [id number] : 1975 Provider: Dr. Parish Rodriguez DO Age/Sex: 49/F [place] [facility] [place] Status: Signed Intake Vital Signs 01/07/25 18:30 [...] some sharp pains. She rates her pain /10 today and states her last injection was on 02/28/23 on the right side were helpful until July 2024. She states it is painful to lift her arms at times. 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 Patient has bee [...] come back. Patient states she goes to [employer] on her own to work on back [...] all of the time. 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 07/08/25904 <Electronically signed by Ashu Fong o > Date _ Ashu Rodriguez DO Cosigner Signature: Date (if applicable) CC: ~ [facility] Work Phone: Reason for referral (narrative)* Diagnostic Procedure Only (Routine) - Pending Review Specialty Diagnoses / Procedures Referred By Annalise t Referred To Contact [facility] Diagnoses Breast cancer screening by mammogram Procedures MALKA SCREENING SCREENING MAMMOGRAPHY BI 2-VIEW BREAST INC CAD Alejandra Arambula PA-C [address] [address] [facility] [address] [place] [address] Referral ID Status Reason Start Date Expiration Date Visits Requested Visits Authorized [id number] Pending Review Auto-Generat ed Ref[facility] 10/01/2023 [facility] Diagnostic Procedure Only (Routine) - Pending Review Specialty Diagnoses / Procedures Referred By Annalise connell Referred To Contact [facility] Diagnoses Pelvic pain in female Cyst of left ovary Procedures US FEMALE PELVIS TRANSVAG US TRANSVAGINAL Alejandra Arambula PA-C [address] [address] [facility] Referral ID Status Reason Start Date Expiration Date Visits Requested Visits Authorized [id number] Pending Review Auto-Generat ed Referral 12/22/2022 01/21/2024 1 1 [facility] for referral (narrative)No reason for referral information availableWCleveland Clinic [facility] Work Phone: Summary Purpose Family History No [...] Date Bilateral shoulder bursitis July 082024 8:36am Chief Complaint Admit Date BILATERAL SHOULDERS July 08, 2025 8:36am Annual wellness exam PE July 25 7:00pm SCREENING July 30, 2025 1 :55pm Reason for Visit Admit Date Bilateral shoulder bursitis July 082024 8:36am Wellness examination July 25, 2025 7:00pm Additional Source Comments INFORMATION SOURCE (unrecogn ized section and content) DATE CREATED AUTHOR 03/30/2018 [facility] DATE CREATED AUTHOR AUTHOR'S ORGANIZ ATION 04/05/2018 [facility] DATE CREATED AUTHOR AUTHOR'S ORGANIZ ATION 04/05/2018 [facility] DATE CREATED AUTHOR AUTHOR'S ORGANIZ ATION 11/06/2021 [facility] DATE CREATED AUTHOR AUTHOR'S ORGANIZ ATION 08/07/2025 [facility] Goals (unrecognized section and content) Goals may [...] or prosecute any alcohol or drug abuse patient.[facility] HospitalIn the event this information is protected by the Federal Confidentiality of Alcohol and Drug Abuse Patient Records regulations: The Federal rules restrict any use of the information to criminally investigate or prosecute any alcohol or drug abuse patient.[facility] HospitalIn the event this information is protected by the Federal Confidentiality of Alcohol and Drug Abuse Patient Records regulations: The Federal rules restrict any use of the information to criminally investigate or prosecute any alcohol or drug abuse patient.[facility] HospitalIn the event this information is protected by the Federal Confidentiality of Alcohol and Drug Abuse Patient Records regulations: The Federal rules restrict any use of the information to criminally investigate or prosecute any alcohol or drug abuse patient.[facility] HospitalIn the event this information is protected by the Federal Confidentiality of Alcohol and Drug Abuse Patient Records regulations: The Federal rules restrict any use of the information to criminally investigate or prosecute any alcohol or drug abuse patient.[facility] HospitalIn the event this information is protected by the Federal Confidentiality of Alcohol and Drug Abuse Patient Records regulations: The Federal rules restrict any use of the information to criminally investigate or prosecute any alcohol or drug abuse patient.[facility] Reason for Visit (unrecogniz ed section and content) Reason Comments Refill Request Reason Comments 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 Care Teams (unrecognized sec tion and content) Heel Painter Relationship Specialty Start Date End Date Alejandra Arambula PA-C [address] [place] [address] [place] [address] Women's Health Specialist 12/01/18 Heel Painter Relationship Specialty Start Date End Date Lesia Story NP [address] [place], [place] [address] PCP - General 09/01/22 Alejandra Arambula PA-C [address] [place] [address] [place] [address] [id number] Women's Health Specialist 12/01/18 Heel Painter Relationship Specialty Start Date End Date Lesia Story NP [address] [place], [place] [address] PCP - General 09/01/22 Alejandra Arambula PA-C [address] [place] [address] [place] [address] Women's Health Specialist 12/01/18 Heel Painter Relationship Specialty Start Date End Date Lesia Story NP [address] [place] [address] PCP - General 09/01/22 Alejandra Arambula PA-C [address] [phone] Women's Health Specialist 12/01/18 Team Status: Active Member Role Status Dates Dr. Damian Bradford MD Family Provider Active Lesia Story NP, CHILD'S NURSE-C Primary Care Provider Active Team Status: Inactive Member Role Status Dates Lesia Story CHILD'S NURSE, CHILD'S NURSE-C Primary Care Provider, Referr ing Provider Active Dr. Ashu Rodriguez DO Attending Provider Active Team Status: Inactive Member Role Status Dates Lesia Story CHILD'S NURSE, CHILD'S NURSE-C Primary Care Provider Active MELYSSA PA Attending Provider Active Team Status: Inactive Member Role Status Dates Lesia Story CHILD'S NURSE, CHILD'S NURSE-C Primary Care Pr ovider, Attending Provider, Referring Provider Active Team Status: Inactive Member Role Status Dates Lesia Story CHILD'S NURSE, CHILD'S NURSE-C Primary Care Provider Active Dr. Dale Chacon MD Attending Provider, Referring Pr ovider Active Team Status: Active Member Role Status Dates Lesia Story CHILD'S NURSE, CHILD'S NURSE-C Primary Care Pr ovider, Attending Provider, Referring Provider Active Team Status: Active Member Role Status Dates Lesia Story CHILD'S NURSE, CHILD'S NURSE-C Primary Care Provider Active Health Risk Assessment Attending Provider, Referring P rovider Active Team Status: Inactive Member Role Status Dates Lesia Story CHILD'S NURSE, CHILD'S NURSE-C Primary Care Provider Active MELYSSA PA Attending Provider, Referring Provi david Active Heel Painter Relationship Specialty Start Date End Date StoryLesia CHILD'S NURSE [address] [place] [address] PCP - General 09/01/22 Alejandra Arambula PA-C [address] [address] Women's Health Specialist 12/01/18 Team Status: Active Member Role Status Dates Lesia Story CHILD'S NURSE, CHILD'S NURSE-C Primary Care Provider Active Dr. Dale Chacon MD Attending Provider, Referring Pr ovider Active Heel Painter Relationship Specialty Start Date End Date StoryLesia CHILD'S NURSE [address] [place] [address] PCP - General 09/01/22 Alejandra Arambula PA-C [address] [address] Women's Health Specialist 12/01/18 Team Status: Active Member Role/Relationship Status Dates Lesia Story NP, CHILD'S NURSE-C Primary Care Provider Active Team Status: Inactive Member Role/Relationship Status Dates Lesia Story NP, CHILD'S NURSE-C Primary Care Provider Active Start: January 10, 2025 End: January 10, 2025 Dr. Ashu Rodriguez DO Attending Provider Active Start: January 10, 2025 End: January 10, 2025 Dr. Ashu Rodriguez DO Referring Provider Active Start: January 10, 2025 End: January 10, 2025 Team Status: Active Member Role/Relationship Status Dates Lesia Story NP, CHILD'S NURSE-C Primary care physician Active Team Status: Inactive Member Role/Relationship Status Dates Lesia Story NP, CHILD'S NURSE-C Primary care physician Active Start: July 08, 2025 End: July 08, 2025 Lesia Story NP, CHILD'S NURSE-C Referring Provider Active Start: July 08, 2025 End: July 08, 2025 Dr. Ashu Rodriguez DO Attending physician Active Start: July 08, 2025 End: July 08, 2025 Team Status: Active Member Role/Relationship Status Dates Lesia Story NP, CHILD'S NURSE-C Primary care physician Active Start: July 23, 2025 Health Risk Assessment Attending physician Active Start: July 23, 2025 Health Risk Assessment Referring Provider Active Start: July 23, 2025 Team Status: Inactive Member Role/Relationship Status Dates Lesia Story NP, CHILD'S NURSE-C Primary care physician Active Start: July 25, 2025 End: July 25, 2025 Lesia Story NP, CHILD'S NURSE-C Attending physician Active Start: July 25, 2025 End: July 25, 2025 Lesia Story NP, CHILD'S NURSE-C Referring Provider Active Start: July 25, 2025 End: July 25, 2025 Team Status: Inactive Member Role/Relationship Status Dates Lesia Story NP, CHILD'S NURSE-C Primary care physician Active Start: July 30, 2025 End: July 30, 2025 Lesia Story NP, CHILD'S NURSE-C Attending physician Active Start: July 30, 2025 End: July 30, 2025 Lesia Story NP, CHILD'S NURSE-C Referring Provider Active Start: July 30, 2025 End: July 30, 2025 FOR RECORDS PERTAINING TO PATIENTS WHO [...] BE BASED ON THE PRIMARY CLINICAL RECORDS. [facility]. provides no warranty or guarantee of the accuracy or completeness of information in this document.
== END | disposition home or self-care (01) ==
LOC: OPBD 09:29
PROVIDERS: PCP Nurse Practitioner; Referring Provider Physician Assistant; Visit Provider Physician Assistant
DX: Z13.820 Encounter for screening for osteoporosis (principal); D25.9 Leiomyoma of uterus, unspecified; Z78.0 Asymptomatic menopausal state